=== PATIENT | male | born 2000 | race Caucasian/White ===

== ENCOUNTER 2021-02-24 16:41 | Inpatient (IN) | payer OTHER ==
[2021-02-24] MEDS ORDERED: Ondansetron PF 4 MG/2 ML Vial IVP PRN (21:39)
[2021-02-24] MEDS ORDERED: hydrALAZINE 20 MG/ML VIAL SLOW IVP PRN (21:39)
[2021-02-24] MEDS ORDERED: Promethazine HCl 12.5 MG SUPP PR PRN (21:39)
[2021-02-24] MEDS ORDERED: Labetalol HCl 100 MG/20 ML VIAL SLOW IVP PRN (21:39)
[2021-02-24] MEDS ORDERED: Promethazine HCl 25 MG/ML VIAL IM PRN (21:39)
[2021-02-24] MEDS ORDERED: Promethazine 25 MG TAB PO PRN (21:39)
[2021-02-24] MEDS ORDERED: Vancomycin 1 GM in Premix Bag 1 BAG IVPB SCH (21:45)
[2021-02-24 21:59] LABS: #Basophils 0.1 thou/uL (0.0-0.2); #Lymphocytes 1.7 thou/uL (1.20-3.40); #Monocytes 0.7 thou/uL (0.11-0.59); #Neutrophils 4.5 thou/uL (1.40-6.50); %Basophils 0.7 % (0.0-1.0); %Eosinophils 0.6 % (0.0-10.0); %Lymphocytes 24.7 % (21.0-51.0); %Monocytes 9.6 % (0.0-10.0); %Neutrophils 64.3 % (42.0-75.0); Hemoglobin 16.7 g/dL (14.0-18.0); Mean Corpuscular HGB CONC 33.5 g/dL (32.0-36.0); Mean Corpuscular Hemoglobin 31.9 pg (27.0-31.0); Mean Corpuscular Volume 95.2 fL (78.0-98.0); Mean Platelet Volume 8.3 fL (7.4-10.4); Platelet Count 250 thou/uL (130-400); RBC Distribution Width 12.3 % (11.5-14.5); Red Blood Cell (RBC) Count 5.23 mill/uL (4.70-6.10)
[2021-02-24] MEDS ORDERED: STERILE WATER IVPB SCH (22:00)
[2021-02-24] MEDS ORDERED: GENTAMICIN IVPB SCH (22:00)
[2021-02-24] MEDS ORDERED: VANCOMYCIN HCL IVPB SCH (22:00)
[2021-02-24 22:11] LABS: PTT 26.2 sec (22.9-36.1); Prothrombin Time 12.9 sec (12.0-14.7)
[2021-02-24 22:24] LABS: Anion Gap 14 mmol/L (10-20); BUN (Urea Nitrogen) 8 mg/dL (8.9-20.6); Calc. Creatinine Clearance 0 mL/min (70-130); Calcium 9.6 mg/dL (7.8-10.44); Carbon Dioxide 27 mmol/L (22-29); Chloride 101 mmol/L (98-107); Glucose 122 mg/dL (70-105); Potassium 3.9 mmol/L (3.5-5.1); Sodium 138 mmol/L (136-145)
[2021-02-24 23:23] LABS: SARS-CoV-2 NAA Rapid Test Not Detected (NotDetected)
[2021-02-25] MEDS: Sodium Chloride 0.9% 1,000 ML IV SCH ×3 (00:03→17:06)
[2021-02-25 00:25] VITALS: BMI 18.7
[2021-02-25] MEDS: Morphine 4 MG/ML VIAL SLOW IVP PRN ×3 (07:39→21:00)
[2021-02-25] MEDS ORDERED: diphenhydrAMINE 50 MG/ML VIAL IVP PRN (08:07)
[2021-02-25] MEDS ORDERED: Fentanyl 100 MCG/2 ML VIAL ONE (10:12)
[2021-02-25] MEDS ORDERED: Sodium Chloride 0.9% 10 ML ONE (10:16)
[2021-02-25] MEDS ORDERED: Lidocaine 0.5%/Epinephrine 1:200,000 50 ml Vial ONE (10:16)
[2021-02-25] MEDS ORDERED: Gentamicin 80 MG/2 ML VIAL ONE (10:16)
[2021-02-25] MEDS ORDERED: Thrombin 5000 UNITS/5 ML VIAL ONE (10:16)
[2021-02-25] MEDS ORDERED: Rocuronium Bromide 10 MG/ML (10ML VIAL) ONE (10:50)
[2021-02-25] MEDS ORDERED: Dexamethasone 20 MG/5 ML VIAL ONE (10:50)
[2021-02-25] MEDS ORDERED: PHENYLEPHRINE-NS 100 MCG/ML 10 ML SYRINGE ONE (10:50)
[2021-02-25] MEDS ORDERED: PROPOFOL 200 MG/20 ML VIAL ONE (10:50)
[2021-02-25] MEDS ORDERED: Ondansetron PF 4 MG/2 ML Vial ONE (10:50)
[2021-02-25] MEDS ORDERED: Lidocaine 1% PF 5 ML VIAL ONE (10:50)
[2021-02-25] MEDS ORDERED: ePHEDrine Sulfate 50 MG/10 ML VIAL ONE (10:50)
[2021-02-25] MEDS ORDERED: Bupivacaine PF 0.5% 30 ML VIAL ONE ×2 (11:30→12:05)
[2021-02-25] MEDS ORDERED: Lidocaine 1% w/Epinephrine 1:100K 20 ML VIAL ONE ×2 (11:30→12:05)
[2021-02-25] MEDS ORDERED: SUGAMMADEX SODIUM 200 MG/2 ML VIAL ONE (12:16)
[2021-02-25] MEDS ORDERED: Bacitracin Zinc Ointment 30 gm TUBE ONE (12:25)
[2021-02-25] MEDS: Vancomycin 1 GM in Premix Bag 1 BAG IVPB SCH (21:48)
[2021-02-26] MEDS ORDERED: Albuterol 200 PUFF (6.7GM INHALER) INH PRN (02:58)
[2021-02-26] MEDS ORDERED: Baclofen 10 MG TAB PER TUBE PRN (03:00)
[2021-02-26] MEDS: Sodium Chloride 0.9% 1,000 ML IV SCH (04:11)
[2021-02-26] MEDS: Vancomycin 1 GM in Premix Bag 1 BAG IVPB SCH (10:11)
[2021-02-26] MEDS: Morphine 4 MG/ML VIAL SLOW IVP PRN (11:47)
[2021-02-26 11:50] VITALS: BP 148/66; TEMP 98.4
[2021-02-26] MEDS ORDERED: OLOPATADINE EA EYE SCH (21:00)
[2021-02-26] MEDS ORDERED: Loratadine 10 MG TAB PER TUBE SCH (21:00)
[2021-02-26] MEDS ORDERED: Polyethylene Glycol 3350 17 GM Packet PER TUBE SCH (21:00)
[2021-02-26] MEDS ORDERED: Montelukast Sodium 10 mg Tablet PER TUBE SCH (21:00)
== END 2021-02-26 12:15 | disposition home or self-care (01) | DRG 31 ==
LOC: ERS 16:41 → CCU 21:42 → SURG B 02-25 21:31
PROVIDERS: ADMIT Neurological Surgery; ATTEND Neurological Surgery
PROC: 00W60JZ Revision of Synthetic Substitute in Cerebral Ventricle, Open Approach (ICD-10-PCS; principal; 2021-02-25)
PROC: 0WWG0JZ Revision of Synthetic Substitute in Peritoneal Cavity, Open Approach (ICD-10-PCS; 2021-02-25)
DX: T85.01XA Breakdown (mechanical) of ventricular intracranial (communicating) shunt, initial encounter (principal); G82.50 Quadriplegia, unspecified; Q67.5 Congenital deformity of spine; Z20.822 Contact with and (suspected) exposure to COVID-19; Y83.8 Other surgical procedures as the cause of abnormal reaction of the patient, or of later complication, without mention of misadventure at the time of the procedure; G47.33 Obstructive sleep apnea (adult) (pediatric); Q03.1 Atresia of foramina of Magendie and Luschka; Z98.890 Other specified postprocedural states; Z79.51 Long term (current) use of inhaled steroids; Z79.899 Other long term (current) drug therapy; Z88.1 Allergy status to other antibiotic agents; Z88.8 Allergy status to other drugs, medicaments and biological substances; Z91.040 Latex allergy status
CPT/HCPCS: 36415; 70450; 74176; 75809; 80048; 85025; 85610; 85730; J1100; J1580; J2001; J2270; J2405; J2704; J3010; J3370; J3490; S0020; U0002

== ENCOUNTER 2021-03-17 11:25 | Inpatient (IN) | payer OTHER ==
[2021-03-17] MEDS ORDERED: Iopamidol-370 76% 500 ML 1 ML ONE (11:36)
[2021-03-17] MEDS ORDERED: Vancomycin 1 GM/200 ML BAG ONE (12:07)
[2021-03-17] MEDS ORDERED: Cefepime 2 GM VIAL ONE ×2 (12:07→12:08)
[2021-03-17 12:09] LABS: Actual Bicarbonate (HCO3v) 27 mEq/L (22-28); Analyzer IN Cardio ER; Base Excess 2.7 mEq/L (-2.0 to +3.0); Calcium, Ionized (venous) 1.11 mmol/L (1.16-1.32); Chloride (VBG) 98 mmol/L (98-106); Hemoglobin (Hb) 16.8 g/dL (13.2-17.3); Potassium (VBG) 3.62 mmol/L (3.70-5.30); Sodium 135.9 mmol/L (133-146); pH (venous) 7.44 (7.32-7.43)
[2021-03-17 12:13] LABS: #Lymphocytes 1.2 thou/uL (1.20-3.40); #Monocytes 1.8 thou/uL (0.11-0.59); #Neutrophils 14.1 thou/uL (1.40-6.50); %Basophils 0.2 % (0.0-1.0); %Eosinophils 0.3 % (0.0-10.0); %Lymphocytes 7.2 % (21.0-51.0); %Monocytes 10.6 % (0.0-10.0); %Neutrophils 81.7 % (42.0-75.0); Mean Corpuscular HGB CONC 32.4 g/dL (32.0-36.0); Mean Corpuscular Hemoglobin 30.5 pg (27.0-31.0); Mean Corpuscular Volume 94.3 fL (78.0-98.0); Mean Platelet Volume 8.1 fL (7.4-10.4); Platelet Count 255 thou/uL (130-400); Red Blood Cell (RBC) Count 5.23 mill/uL (4.70-6.10); White Blood Cell (WBC) Count 17.2 thou/uL (4.8-10.8)
[2021-03-17 12:34] LABS: ALT (SGPT) 28 U/L (8-55); AST (SGOT) 18 U/L (5-34); Albumin 3.9 g/dL (3.5-5.0); Alkaline Phosphatase 138 U/L (40-110); Anion Gap 15 mmol/L (10-20); BUN (Urea Nitrogen) 8 mg/dL (8.9-20.6); Bilirubin, Total 0.6 mg/dL (0.2-1.2); Calc. Creatinine Clearance 0 mL/min (70-130); Calcium 10.1 mg/dL (7.8-10.44); Carbon Dioxide 28 mmol/L (22-29); Chloride 99 mmol/L (98-107); Globulin 3.4 g/dL (2.4-3.5); Glucose 93 mg/dL (70-105); Potassium 3.6 mmol/L (3.5-5.1); Protein, Total 7.3 g/dL (6.0-8.3); Sodium 138 mmol/L (136-145)
[2021-03-17 14:10] LABS: Bilirubin Negative (Negative); Blood, Urine Small (Negative); Glucose, Urine (Dipstick) 250 mg/dL (Negative); Ketone, Urine Negative (Negative); Leukocyte Negative (Negative); Nitrite Negative (Negative); Protein, Urine (Dipstick) Negative (Neg-Trace); Urobilinogen 0.2 mg/dL (Less than 2)
[2021-03-17 14:14] LABS: Clarity Clear (Clear)
[2021-03-17 14:16] LABS: Bacteria/HPF None Seen HPF (None Seen); Squamous Epithelial None Seen HPF (0-3); WBC/HPF None Seen HPF (0-3)
[2021-03-17] MEDS ORDERED: diphenhydrAMINE 50 MG/ML VIAL ONE (14:18)
[2021-03-17 14:47] LABS: SARS-CoV-2 NAA Rapid Test Not Detected (NotDetected)
[2021-03-17] MEDS ORDERED: Ondansetron PF 4 MG/2 ML Vial ONE (15:09)
[2021-03-17] MEDS: diphenhydrAMINE 50 MG/ML VIAL IVP PRN (20:33)
[2021-03-17] MEDS: Ondansetron PF 4 MG/2 ML Vial IVP PRN (20:46)
[2021-03-17] MEDS: Acetaminophen 650 MG Suppository PR PRN (20:55)
[2021-03-17] MEDS: Vancomycin HCl 750 MG in Sodium Chloride 0.9% 250 ML 250 ML IVPB SCH (20:56)
[2021-03-18] MEDS: Cefepime 1 GM in Sodium Chloride 0.9% 100 ML IVPB SCH ×2 (01:37→13:55)
[2021-03-18] MEDS: Vancomycin HCl 750 MG in Sodium Chloride 0.9% 250 ML 250 ML IVPB SCH (04:48)
[2021-03-18] MEDS: diphenhydrAMINE 50 MG/ML VIAL IVP PRN ×3 (04:50→20:22)
[2021-03-18 05:59] LABS: #Eosinphils 0.1 thou/uL (0.0-0.7); #Lymphocytes 1.8 thou/uL (1.20-3.40); #Monocytes 1.8 thou/uL (0.11-0.59); #Neutrophils 10.7 thou/uL (1.40-6.50); %Basophils 0.3 % (0.0-1.0); %Eosinophils 0.9 % (0.0-10.0); %Lymphocytes 12.3 % (21.0-51.0); %Monocytes 12.5 % (0.0-10.0); %Neutrophils 74.1 % (42.0-75.0); Hemoglobin 13.8 g/dL (14.0-18.0); Mean Corpuscular Hemoglobin 32.4 pg (27.0-31.0); Mean Corpuscular Volume 95.3 fL (78.0-98.0); Mean Platelet Volume 8.4 fL (7.4-10.4); Platelet Count 225 thou/uL (130-400); RBC Distribution Width 11.8 % (11.5-14.5); Red Blood Cell (RBC) Count 4.26 mill/uL (4.70-6.10); White Blood Cell (WBC) Count 14.4 thou/uL (4.8-10.8)
[2021-03-18 06:06] LABS: Anion Gap 12 mmol/L (10-20); BUN (Urea Nitrogen) 9 mg/dL (8.9-20.6); Calc. Creatinine Clearance 125 mL/min (70-130); Calcium 8.8 mg/dL (7.8-10.44); Carbon Dioxide 26 mmol/L (22-29); Chloride 102 mmol/L (98-107); Glucose 109 mg/dL (70-105); Potassium 3.5 mmol/L (3.5-5.1); Sodium 136 mmol/L (136-145)
[2021-03-18] MEDS: Enoxaparin Sodium 30 MG/0.3 ML SYRINGE SC SCH (09:55)
[2021-03-18] MEDS: Ondansetron PF 4 MG/2 ML Vial IVP PRN ×2 (10:31→18:25)
[2021-03-18 11:15] LABS: Vancomycin, Trough 13.1 ug/mL
[2021-03-18 11:51] LABS: Hemoglobin 15.4 g/dL (14.0-18.0); Mean Corpuscular HGB CONC 33.6 g/dL (32.0-36.0); Mean Corpuscular Hemoglobin 31.6 pg (27.0-31.0); Mean Corpuscular Volume 94.3 fL (78.0-98.0); Mean Platelet Volume 7.7 fL (7.4-10.4); Platelet Count 273 thou/uL (130-400); Red Blood Cell (RBC) Count 4.86 mill/uL (4.70-6.10); White Blood Cell (WBC) Count 14.8 thou/uL (4.8-10.8)
[2021-03-18 12:12] LABS: Band 6 % (5-11); Lymphocytes 9 % (21-51); MDiff Complete? YES; Monocytes 7 % (0-10); Neutrophil 76 % (42-75); Platelet Morphology Comment Appears Adequate; RBC Morphology Normal; Reactive Lymphocytes 2 % (0-10)
[2021-03-18] MEDS: Sodium Chloride 0.9% 1,000 ML IV SCH (12:14)
[2021-03-18] MEDS: Vancomycin 1 GM in Premix Bag 1 BAG IVPB SCH (12:14)
[2021-03-18] MEDS: Metoclopramide HCl 10 MG/2 ML VIAL IVP PRN ×2 (14:01→20:23)
[2021-03-18 15:56] LABS: Lactic Acid 1.1 mmol/L (0.5-2.2)
[2021-03-18 19:45] VITALS: BP 109/76
[2021-03-18] MEDS ORDERED: Lidocaine 0.5%/Epinephrine 1:200,000 50 ml Vial ONE (20:29)
[2021-03-18] MEDS ORDERED: Sodium Chloride 0.9% 10 ML ONE ×2 (20:30→23:53)
[2021-03-18] MEDS ORDERED: Bacitracin Zinc Ointment 30 gm TUBE ONE (20:30)
[2021-03-18] MEDS ORDERED: Fentanyl 100 MCG/2 ML VIAL ONE ×2 (20:33→23:14)
[2021-03-18] MEDS ORDERED: Midazolam HCl 2 mg/2 ml Vial ONE (20:33)
[2021-03-18] MEDS ORDERED: PHENYLEPHRINE-NS 100 MCG/ML 10 ML SYRINGE ONE (21:07)
[2021-03-18] MEDS ORDERED: Lidocaine 1% PF 5 ML VIAL ONE (21:07)
[2021-03-18] MEDS ORDERED: PROPOFOL 200 MG/20 ML VIAL ONE (21:07)
[2021-03-18] MEDS ORDERED: Ondansetron PF 4 MG/2 ML Vial ONE ×2 (21:07→22:47)
[2021-03-18] MEDS ORDERED: metroNIDAZOLE 500 MG in Premix Bag 1 BAG IVPB SCH (22:30)
[2021-03-18] MEDS ORDERED: Promethazine HCl 25 MG/ML VIAL SLOW IVP PRN (22:55)
[2021-03-18] MEDS ORDERED: Ondansetron HCl/PF 4 MG/2 ML Vial IVP PRN (22:55)
[2021-03-18] MEDS ORDERED: Promethazine HCl 25 MG/ML VIAL IM PRN (22:55)
[2021-03-19] MEDS: Sodium Chloride 0.9% 1,000 ML IV SCH (00:29)
[2021-03-19] MEDS: CEFAZOLIN 1 GM VIAL SLOW IVP SCH ×2 (00:40→06:19)
[2021-03-19] MEDS: Ondansetron PF 4 MG/2 ML Vial IVP PRN (00:42)
[2021-03-19 00:47] LABS: CSF Source CSF; Tube # 1
[2021-03-19 00:48] LABS: Clarity Clear (Clear)
[2021-03-19 00:51] LABS: Color Of CSF Supernatant COLORLESS (Colorless); Tube # 1; Unspun CSF Color COLORLESS (Colorless)
[2021-03-19] MEDS: Acetaminophen 650 MG Suppository PR PRN (00:54)
[2021-03-19] MEDS: Bisacodyl 10 MG SUPP PR SCH ×4 (00:56→22:37)
[2021-03-19 01:02] LABS: CSF, Glucose 112 mg/dl (40-70); CSF, Protein 31 mg/dL (15-40)
[2021-03-19] MEDS: Ketorolac Tromethamine 30 MG/ML VIAL IVP PRN ×3 (01:19→21:40)
[2021-03-19] MEDS: diphenhydrAMINE 50 MG/ML VIAL IVP PRN ×2 (02:20→18:35)
[2021-03-19] MEDS: Vancomycin 1 GM in Premix Bag 1 BAG IVPB SCH ×3 (02:23→18:36)
[2021-03-19] MEDS: Cefepime 1 GM in Sodium Chloride 0.9% 100 ML IVPB SCH (03:52)
[2021-03-19 04:33] LABS: Anion Gap 13 mmol/L (10-20); BUN (Urea Nitrogen) 14 mg/dL (8.9-20.6); Calc. Creatinine Clearance 109 mL/min (70-130); Calcium 9.4 mg/dL (7.8-10.44); Carbon Dioxide 26 mmol/L (22-29); Chloride 107 mmol/L (98-107); Glucose 173 mg/dL (70-105); Potassium 3.8 mmol/L (3.5-5.1); Sodium 142 mmol/L (136-145)
[2021-03-19] MEDS: metroNIDAZOLE 500 MG in Premix Bag 1 BAG IVPB SCH ×3 (07:13→22:38)
[2021-03-19 08:53] LABS: Hemoglobin 14.3 g/dL (14.0-18.0); Mean Corpuscular Hemoglobin 32.2 pg (27.0-31.0); Mean Corpuscular Volume 94.9 fL (78.0-98.0); Mean Platelet Volume 7.5 fL (7.4-10.4); Platelet Count 275 thou/uL (130-400); RBC Distribution Width 12.2 % (11.5-14.5); Red Blood Cell (RBC) Count 4.45 mill/uL (4.70-6.10); White Blood Cell (WBC) Count 16.1 thou/uL (4.8-10.8)
[2021-03-19 09:20] LABS: Band 2 % (5-11); Lymphocytes 13 % (21-51); MDiff Complete? YES; Monocytes 10 % (0-10); Neutrophil 71 % (42-75); RBC Morphology Normal; Reactive Lymphocytes 4 % (0-10)
[2021-03-19] MEDS: Enoxaparin Sodium 30 MG/0.3 ML SYRINGE SC SCH (10:27)
[2021-03-19] MEDS: Polyethylene Glycol 3350 17 GM Packet PO PRN (10:27)
[2021-03-19] MEDS: Metoclopramide HCl 10 MG/2 ML VIAL IVP PRN (10:27)
[2021-03-19] MEDS ORDERED: Fleet Enema 133 ML BOT PR PRN (10:50)
[2021-03-19] MEDS: Cefepime 2 GM in Sodium Chloride 0.9% 100 ML IVPB SCH ×2 (13:57→20:09)
[2021-03-19 17:31] LABS: Vancomycin, Trough 21.6 ug/mL
[2021-03-19] MEDS: Metoclopramide HCl 10 MG/2 ML VIAL IVP SCH (18:21)
[2021-03-20] MEDS: Metoclopramide HCl 10 MG/2 ML VIAL IVP SCH ×3 (01:48→14:05)
[2021-03-20] MEDS: Vancomycin 1 GM in Premix Bag 1 BAG IVPB SCH ×2 (01:48→08:53)
[2021-03-20] MEDS: diphenhydrAMINE 50 MG/ML VIAL IVP PRN ×2 (01:50→08:51)
[2021-03-20 03:36] LABS: #Basophils 0.1 thou/uL (0.0-0.2); #Eosinphils 0.6 thou/uL (0.0-0.7); #Lymphocytes 2.4 thou/uL (1.20-3.40); #Neutrophils 4.6 thou/uL (1.40-6.50); %Basophils 0.7 % (0.0-1.0); %Eosinophils 7.2 % (0.0-10.0); %Lymphocytes 27.6 % (21.0-51.0); %Monocytes 11.6 % (0.0-10.0); %Neutrophils 52.9 % (42.0-75.0); Hemoglobin 12.4 g/dL (14.0-18.0); Mean Corpuscular HGB CONC 33.5 g/dL (32.0-36.0); Mean Corpuscular Hemoglobin 32.2 pg (27.0-31.0); Mean Corpuscular Volume 96.2 fL (78.0-98.0); Mean Platelet Volume 7.1 fL (7.4-10.4); Platelet Count 253 thou/uL (130-400); RBC Distribution Width 12.2 % (11.5-14.5); Red Blood Cell (RBC) Count 3.85 mill/uL (4.70-6.10); White Blood Cell (WBC) Count 8.7 thou/uL (4.8-10.8)
[2021-03-20 03:55] LABS: Anion Gap 10 mmol/L (10-20); BUN (Urea Nitrogen) 18 mg/dL (8.9-20.6); Calc. Creatinine Clearance 132 mL/min (70-130); Calcium 8.5 mg/dL (7.8-10.44); Carbon Dioxide 27 mmol/L (22-29); Chloride 111 mmol/L (98-107); Glucose 142 mg/dL (70-105); Potassium 3.2 mmol/L (3.5-5.1); Sodium 145 mmol/L (136-145)
[2021-03-20] MEDS: Cefepime 2 GM in Sodium Chloride 0.9% 100 ML IVPB SCH (04:06)
[2021-03-20] MEDS: Sodium Chloride 0.9% 1,000 ML IV SCH (04:08)
[2021-03-20] MEDS: metroNIDAZOLE 500 MG in Premix Bag 1 BAG IVPB SCH ×3 (05:47→21:45)
[2021-03-20] MEDS: Bisacodyl 10 MG SUPP PR SCH ×3 (07:21→22:15)
[2021-03-20] MEDS: Polyethylene Glycol 3350 17 GM Packet PO PRN (08:53)
[2021-03-20] MEDS: Enoxaparin Sodium 30 MG/0.3 ML SYRINGE SC SCH (08:53)
[2021-03-20] MEDS ORDERED: Potassium Bicarbonate/Cit Ac 20 MEQ TAB PO SCH (09:45)
[2021-03-20 10:06] LABS: Vancomycin, Trough 36.6 ug/mL
[2021-03-20] MEDS: Linezolid 600 MG in Premix Bag 1 BAG IVPB SCH (15:34)
[2021-03-20] MEDS: Ketorolac Tromethamine 30 MG/ML VIAL IVP PRN (16:59)
[2021-03-20] MEDS: Cefepime 1 GM in Sodium Chloride 0.9% 100 ML IVPB SCH (17:58)
[2021-03-20] MEDS: Ondansetron PF 4 MG/2 ML Vial IVP PRN (21:45)
[2021-03-21] MEDS: Ketorolac Tromethamine 30 MG/ML VIAL IVP PRN ×2 (00:09→16:01)
[2021-03-21] MEDS: Linezolid 600 MG in Premix Bag 1 BAG IVPB SCH ×2 (01:53→14:20)
[2021-03-21 03:54] LABS: #Basophils 0.1 thou/uL (0.0-0.2); #Eosinphils 0.8 thou/uL (0.0-0.7); #Lymphocytes 2.3 thou/uL (1.20-3.40); #Monocytes 0.9 thou/uL (0.11-0.59); #Neutrophils 3.7 thou/uL (1.40-6.50); %Basophils 0.7 % (0.0-1.0); %Eosinophils 10.9 % (0.0-10.0); %Lymphocytes 29.3 % (21.0-51.0); %Monocytes 11.9 % (0.0-10.0); %Neutrophils 47.2 % (42.0-75.0); Hemoglobin 13.4 g/dL (14.0-18.0); Mean Corpuscular HGB CONC 33.2 g/dL (32.0-36.0); Mean Corpuscular Hemoglobin 31.3 pg (27.0-31.0); Mean Corpuscular Volume 94.3 fL (78.0-98.0); Mean Platelet Volume 7.1 fL (7.4-10.4); Platelet Count 278 thou/uL (130-400); RBC Distribution Width 12.1 % (11.5-14.5); Red Blood Cell (RBC) Count 4.28 mill/uL (4.70-6.10); White Blood Cell (WBC) Count 7.8 thou/uL (4.8-10.8)
[2021-03-21 04:10] LABS: Anion Gap 14 mmol/L (10-20); BUN (Urea Nitrogen) 11 mg/dL (8.9-20.6); Calc. Creatinine Clearance 135 mL/min (70-130); Calcium 8.5 mg/dL (7.8-10.44); Carbon Dioxide 27 mmol/L (22-29); Chloride 99 mmol/L (98-107); Glucose 130 mg/dL (70-105); Potassium 3.5 mmol/L (3.5-5.1); Sodium 136 mmol/L (136-145)
[2021-03-21] MEDS: Cefepime 1 GM in Sodium Chloride 0.9% 100 ML IVPB SCH ×2 (04:37→16:00)
[2021-03-21] MEDS: metroNIDAZOLE 500 MG in Premix Bag 1 BAG IVPB SCH ×3 (05:51→21:33)
[2021-03-21] MEDS: Bisacodyl 10 MG SUPP PR SCH ×3 (05:51→23:21)
[2021-03-21] MEDS: Ondansetron PF 4 MG/2 ML Vial IVP PRN ×2 (07:45→14:34)
[2021-03-21] MEDS: Enoxaparin Sodium 30 MG/0.3 ML SYRINGE SC SCH (09:40)
[2021-03-22] MEDS: Linezolid 600 MG in Premix Bag 1 BAG IVPB SCH ×2 (02:48→14:04)
[2021-03-22 04:35] LABS: #Eosinphils 0.4 thou/uL (0.0-0.7); #Lymphocytes 1.5 thou/uL (1.20-3.40); #Monocytes 0.9 thou/uL (0.11-0.59); %Basophils 0.1 % (0.0-1.0); %Eosinophils 4.9 % (0.0-10.0); %Neutrophils 64.1 % (42.0-75.0); Hemoglobin 14.3 g/dL (14.0-18.0); Mean Corpuscular HGB CONC 34.5 g/dL (32.0-36.0); Mean Corpuscular Hemoglobin 32.8 pg (27.0-31.0); Mean Corpuscular Volume 94.9 fL (78.0-98.0); Mean Platelet Volume 7.3 fL (7.4-10.4); Platelet Count 318 thou/uL (130-400); Red Blood Cell (RBC) Count 4.36 mill/uL (4.70-6.10); White Blood Cell (WBC) Count 7.7 thou/uL (4.8-10.8)
[2021-03-22 04:59] LABS: Anion Gap 13 mmol/L (10-20); BUN (Urea Nitrogen) 11 mg/dL (8.9-20.6); Calc. Creatinine Clearance 136 mL/min (70-130); Calcium 8.9 mg/dL (7.8-10.44); Carbon Dioxide 30 mmol/L (22-29); Chloride 98 mmol/L (98-107); Glucose 123 mg/dL (70-105); Potassium 3.3 mmol/L (3.5-5.1); Sodium 138 mmol/L (136-145)
[2021-03-22] MEDS: metroNIDAZOLE 500 MG in Premix Bag 1 BAG IVPB SCH ×3 (05:39→22:11)
[2021-03-22] MEDS: Bisacodyl 10 MG SUPP PR SCH ×3 (05:54→21:46)
[2021-03-22] MEDS: Enoxaparin Sodium 30 MG/0.3 ML SYRINGE SC SCH (08:58)
[2021-03-22] MEDS ORDERED: Metoclopramide HCl 10 MG/2 ML VIAL IVP SCH (11:45)
[2021-03-22] MEDS: Acetaminophen 650 MG Suppository PR PRN ×2 (14:24→21:46)
[2021-03-22] MEDS ORDERED: Electrolyte Replacement Protocol 1 EACH FS ONE (16:31)
[2021-03-22] MEDS ORDERED: Electrolyte Replacement Protocol FS PRN (16:45)
[2021-03-22] MEDS: Potassium Chloride 20 MEQ in Premix Bag 1 BAG IVPB SCH ×2 (18:47→22:06)
[2021-03-22] MEDS: Metoclopramide HCl 10 MG/2 ML VIAL IVP SCH (21:47)
[2021-03-23] MEDS: Linezolid 600 MG in Premix Bag 1 BAG IVPB SCH ×2 (02:10→14:26)
[2021-03-23] MEDS: metroNIDAZOLE 500 MG in Premix Bag 1 BAG IVPB SCH ×3 (05:24→22:24)
[2021-03-23] MEDS: Bisacodyl 10 MG SUPP PR SCH ×3 (05:24→20:32)
[2021-03-23] MEDS: Acetaminophen 650 MG Suppository PR PRN ×3 (05:24→20:33)
[2021-03-23] MEDS ORDERED: Potassium Chloride 20 MEQ in Premix Bag 1 BAG IVPB SCH (07:00)
[2021-03-23 07:22] LABS: Anion Gap 13 mmol/L (10-20); BUN (Urea Nitrogen) 10 mg/dL (8.9-20.6); Calc. Creatinine Clearance 157 mL/min (70-130); Calcium 8.5 mg/dL (7.8-10.44); Carbon Dioxide 27 mmol/L (22-29); Chloride 100 mmol/L (98-107); Glucose 109 mg/dL (70-105); Potassium 3.7 mmol/L (3.5-5.1); Sodium 136 mmol/L (136-145)
[2021-03-23] MEDS: Ondansetron PF 4 MG/2 ML Vial IVP PRN ×3 (08:21→23:05)
[2021-03-23] MEDS: Metoclopramide HCl 10 MG/2 ML VIAL IVP SCH ×3 (09:45→20:32)
[2021-03-23] MEDS: Enoxaparin Sodium 30 MG/0.3 ML SYRINGE SC SCH (10:51)
[2021-03-23 14:27] VITALS: BMI 21.9
[2021-03-24] MEDS: Linezolid 600 MG in Premix Bag 1 BAG IVPB SCH ×2 (01:37→14:06)
[2021-03-24] MEDS: metroNIDAZOLE 500 MG in Premix Bag 1 BAG IVPB SCH ×3 (05:52→22:09)
[2021-03-24] MEDS: Bisacodyl 10 MG SUPP PR SCH ×3 (05:53→20:30)
[2021-03-24] MEDS: Acetaminophen 650 MG Suppository PR PRN (05:53)
[2021-03-24] MEDS: Metoclopramide HCl 10 MG/2 ML VIAL IVP SCH ×2 (09:24→20:28)
[2021-03-24] MEDS: Enoxaparin Sodium 30 MG/0.3 ML SYRINGE SC SCH (09:24)
[2021-03-24] MEDS: Acetaminophen 650 MG/20.3 ML UDCUP PO PRN (20:43)
[2021-03-24] MEDS: diphenhydrAMINE 50 MG/ML VIAL IVP PRN (22:24)
[2021-03-25] MEDS: Linezolid 600 MG in Premix Bag 1 BAG IVPB SCH ×2 (03:34→14:03)
[2021-03-25 04:29] LABS: #Basophils 0.1 thou/uL (0.0-0.2); #Eosinphils 0.8 thou/uL (0.0-0.7); #Lymphocytes 2.3 thou/uL (1.20-3.40); #Monocytes 0.9 thou/uL (0.11-0.59); #Neutrophils 4.5 thou/uL (1.40-6.50); %Eosinophils 9.8 % (0.0-10.0); %Lymphocytes 26.9 % (21.0-51.0); %Monocytes 10.6 % (0.0-10.0); %Neutrophils 51.7 % (42.0-75.0); Mean Corpuscular HGB CONC 33.9 g/dL (32.0-36.0); Mean Corpuscular Hemoglobin 32.4 pg (27.0-31.0); Mean Corpuscular Volume 95.6 fL (78.0-98.0); Platelet Count 330 thou/uL (130-400); RBC Distribution Width 12.6 % (11.5-14.5); Red Blood Cell (RBC) Count 4.33 mill/uL (4.70-6.10); White Blood Cell (WBC) Count 8.6 thou/uL (4.8-10.8)
[2021-03-25 04:54] LABS: ALT (SGPT) 208 U/L (8-55); AST (SGOT) 157 U/L (5-34); Albumin 3.2 g/dL (3.5-5.0); Alkaline Phosphatase 95 U/L (40-110); Anion Gap 11 mmol/L (10-20); BUN (Urea Nitrogen) 10 mg/dL (8.9-20.6); Bilirubin, Total 0.2 mg/dL (0.2-1.2); Calc. Creatinine Clearance 152 mL/min (70-130); Calcium 8.7 mg/dL (7.8-10.44); Carbon Dioxide 25 mmol/L (22-29); Chloride 103 mmol/L (98-107); Globulin 2.3 g/dL (2.4-3.5); Glucose 124 mg/dL (70-105); Magnesium 1.8 mg/dL (1.6-2.6); Phosphorus 2.9 mg/dL (2.3-4.7); Potassium 4.2 mmol/L (3.5-5.1); Protein, Total 5.5 g/dL (6.0-8.3); Sodium 135 mmol/L (136-145)
[2021-03-25] MEDS: metroNIDAZOLE 500 MG in Premix Bag 1 BAG IVPB SCH ×3 (05:58→22:11)
[2021-03-25] MEDS: Bisacodyl 10 MG SUPP PR SCH ×3 (05:58→22:11)
[2021-03-25] MEDS ORDERED: Magnesium 2 GM/50 ML 2 GM in Premix Bag 1 BAG IVPB SCH (06:30)
[2021-03-25] MEDS: Enoxaparin Sodium 30 MG/0.3 ML SYRINGE SC SCH (08:58)
[2021-03-25] MEDS: Metoclopramide HCl 10 MG/2 ML VIAL IVP SCH (08:59)
[2021-03-25] MEDS: Acetaminophen 650 MG/20.3 ML UDCUP PO PRN (22:20)
[2021-03-26] MEDS: Linezolid 600 MG in Premix Bag 1 BAG IVPB SCH ×2 (03:11→13:31)
[2021-03-26] MEDS: metroNIDAZOLE 500 MG in Premix Bag 1 BAG IVPB SCH ×3 (06:21→21:04)
[2021-03-26] MEDS: Bisacodyl 10 MG SUPP PR SCH ×3 (06:22→21:27)
[2021-03-26] MEDS: Acetaminophen 650 MG/20.3 ML UDCUP PO PRN ×2 (12:26→21:03)
[2021-03-26] MEDS: diphenhydrAMINE 50 MG/ML VIAL IVP PRN (21:03)
[2021-03-27] MEDS: Linezolid 600 MG in Premix Bag 1 BAG IVPB SCH ×2 (02:01→14:14)
[2021-03-27] MEDS ORDERED: Vancomycin HCl 20 MG, Gentamicin (PEDI) 8 MG, Admixture Fee 1 EACH in Sodium Chloride 0... FS SCH (04:00)
[2021-03-27 04:10] LABS: #Basophils 0.1 thou/uL (0.0-0.2); #Eosinphils 0.7 thou/uL (0.0-0.7); #Lymphocytes 3.2 thou/uL (1.20-3.40); #Monocytes 0.9 thou/uL (0.11-0.59); #Neutrophils 3.5 thou/uL (1.40-6.50); %Basophils 1.5 % (0.0-1.0); %Eosinophils 8.6 % (0.0-10.0); %Lymphocytes 38.1 % (21.0-51.0); %Monocytes 10.3 % (0.0-10.0); %Neutrophils 41.6 % (42.0-75.0); Hemoglobin 14.8 g/dL (14.0-18.0); Mean Corpuscular HGB CONC 34.5 g/dL (32.0-36.0); Mean Corpuscular Hemoglobin 32.9 pg (27.0-31.0); Mean Corpuscular Volume 95.5 fL (78.0-98.0); Mean Platelet Volume 7.3 fL (7.4-10.4); Platelet Count 333 thou/uL (130-400); RBC Distribution Width 13.1 % (11.5-14.5); White Blood Cell (WBC) Count 8.4 thou/uL (4.8-10.8)
[2021-03-27 04:38] LABS: Anion Gap 14 mmol/L (10-20); BUN (Urea Nitrogen) 13 mg/dL (8.9-20.6); Calc. Creatinine Clearance 137 mL/min (70-130); Calcium 9.2 mg/dL (7.8-10.44); Carbon Dioxide 26 mmol/L (22-29); Chloride 102 mmol/L (98-107); Glucose 98 mg/dL (70-105); Potassium 4.8 mmol/L (3.5-5.1); Sodium 137 mmol/L (136-145)
[2021-03-27] MEDS: metroNIDAZOLE 500 MG in Premix Bag 1 BAG IVPB SCH ×3 (05:25→22:02)
[2021-03-27] MEDS: Bisacodyl 10 MG SUPP PR SCH ×3 (05:52→20:20)
[2021-03-27] MEDS ORDERED: Fentanyl 100 MCG/2 ML VIAL ONE (06:23)
[2021-03-27] MEDS ORDERED: Bupivacaine 0.25% HCL 30 ML VIAL ONE (06:44)
[2021-03-27] MEDS ORDERED: Lidocaine 0.5%/Epinephrine 1:200,000 50 ml Vial ONE (06:44)
[2021-03-27] MEDS ORDERED: Thrombin 5000 UNITS/5 ML VIAL ONE (06:44)
[2021-03-27] MEDS ORDERED: EPINEPHrine 1 MG/ML AMP ONE (06:44)
[2021-03-27] MEDS ORDERED: Bacitracin Zinc Ointment 30 gm TUBE ONE (06:44)
[2021-03-27] MEDS ORDERED: Midazolam HCl 2 mg/2 ml Vial ONE (07:00)
[2021-03-27] MEDS ORDERED: PROPOFOL 200 MG/20 ML VIAL ONE (07:32)
[2021-03-27] MEDS ORDERED: Lidocaine 1% PF 5 ML VIAL ONE (07:32)
[2021-03-27] MEDS ORDERED: Dexamethasone 20 MG/5 ML VIAL ONE (07:32)
[2021-03-27] MEDS ORDERED: Rocuronium Bromide 10 MG/ML (10ML VIAL) ONE (07:32)
[2021-03-27] MEDS ORDERED: Ondansetron PF 4 MG/2 ML Vial ONE (07:32)
[2021-03-27] MEDS ORDERED: Vancomycin 1 GM/200 ML BAG ONE (07:38)
[2021-03-27] MEDS ORDERED: SUGAMMADEX SODIUM 200 MG/2 ML VIAL ONE (08:54)
[2021-03-27] MEDS: Metoclopramide HCl 10 MG/2 ML VIAL IVP PRN ×2 (13:11→19:58)
[2021-03-27] MEDS: Acetaminophen 650 MG/20.3 ML UDCUP PO PRN ×2 (13:12→18:22)
[2021-03-27] MEDS: diphenhydrAMINE 50 MG/ML VIAL IVP PRN (13:12)
[2021-03-27] MEDS: Morphine 4 MG/ML VIAL SLOW IVP PRN ×2 (19:59→23:01)
[2021-03-27] MEDS ORDERED: Polyethylene Glycol 3350 17 GM Packet PER TUBE SCH (21:00)
[2021-03-27] MEDS ORDERED: Saccharomyces boulardii 250 MG CAP PER TUBE SCH (21:00)
[2021-03-27] MEDS ORDERED: Montelukast Sodium 10 mg Tablet PER TUBE SCH (21:00)
[2021-03-27] MEDS ORDERED: OLOPATADINE HCL FS SCH (21:00)
[2021-03-27] MEDS: Baclofen 10 MG TAB PER TUBE PRN (22:02)
[2021-03-28] MEDS: Linezolid 600 MG in Premix Bag 1 BAG IVPB SCH ×2 (02:12→13:15)
[2021-03-28] MEDS: Morphine 4 MG/ML VIAL SLOW IVP PRN ×3 (03:03→18:05)
[2021-03-28 03:54] LABS: #Eosinphils 0.1 thou/uL (0.0-0.7); #Lymphocytes 2.7 thou/uL (1.20-3.40); #Monocytes 1.4 thou/uL (0.11-0.59); #Neutrophils 12.3 thou/uL (1.40-6.50); %Basophils 0.2 % (0.0-1.0); %Eosinophils 0.4 % (0.0-10.0); %Lymphocytes 16.4 % (21.0-51.0); %Monocytes 8.5 % (0.0-10.0); %Neutrophils 74.5 % (42.0-75.0); Hemoglobin 13.6 g/dL (14.0-18.0); Mean Corpuscular HGB CONC 34.2 g/dL (32.0-36.0); Mean Corpuscular Hemoglobin 32.4 pg (27.0-31.0); Mean Corpuscular Volume 94.8 fL (78.0-98.0); Mean Platelet Volume 6.8 fL (7.4-10.4); Platelet Count 374 thou/uL (130-400); RBC Distribution Width 13.2 % (11.5-14.5); Red Blood Cell (RBC) Count 4.18 mill/uL (4.70-6.10); White Blood Cell (WBC) Count 16.4 thou/uL (4.8-10.8)
[2021-03-28] MEDS: Acetaminophen 650 MG/20.3 ML UDCUP PO PRN ×2 (04:10→11:14)
[2021-03-28 04:19] LABS: ALT (SGPT) 158 U/L (8-55); AST (SGOT) 40 U/L (5-34); Albumin 3.2 g/dL (3.5-5.0); Alkaline Phosphatase 102 U/L (40-110); Anion Gap 12 mmol/L (10-20); BUN (Urea Nitrogen) 11 mg/dL (8.9-20.6); Bilirubin, Total 0.3 mg/dL (0.2-1.2); Calc. Creatinine Clearance 145 mL/min (70-130); Calcium 8.5 mg/dL (7.8-10.44); Carbon Dioxide 25 mmol/L (22-29); Chloride 100 mmol/L (98-107); Globulin 2.4 g/dL (2.4-3.5); Glucose 147 mg/dL (70-105); Potassium 4.1 mmol/L (3.5-5.1); Protein, Total 5.6 g/dL (6.0-8.3); Sodium 133 mmol/L (136-145)
[2021-03-28] MEDS: metroNIDAZOLE 500 MG in Premix Bag 1 BAG IVPB SCH ×2 (06:02→13:14)
[2021-03-28] MEDS: Bisacodyl 10 MG SUPP PR SCH ×2 (06:03→16:23)
[2021-03-28] MEDS: Baclofen 10 MG TAB PER TUBE PRN ×2 (06:04→14:00)
[2021-03-28] MEDS: Metoclopramide HCl 10 MG/2 ML VIAL IVP PRN ×2 (07:36→13:12)
[2021-03-28 18:03] VITALS: TEMP 99.2
== END 2021-03-28 18:40 | disposition home or self-care (01) | DRG 25 ==
LOC: ERS 11:25 → SURG A 14:59 → CCU 03-18 21:25
PROVIDERS: ADMIT Internal Medicine; ATTEND Internal Medicine
PROC: 8E0ZXY6 Isolation (ICD-10-PCS; 2021-03-17)
PROC: 009600Z Drainage of Cerebral Ventricle with Drainage Device, Open Approach (ICD-10-PCS; principal; 2021-03-18)
PROC: 00P60JZ Removal of Synthetic Substitute from Cerebral Ventricle, Open Approach (ICD-10-PCS; 2021-03-18)
PROC: 00160J6 Bypass Cerebral Ventricle to Peritoneal Cavity with Synthetic Substitute, Open Approach (ICD-10-PCS; 2021-03-27)
PROC: 0WJG4ZZ Inspection of Peritoneal Cavity, Percutaneous Endoscopic Approach (ICD-10-PCS; 2021-03-27)
PROC: 00P Central Nervous System and Cranial Nerves, Removal (ICD-10-PCS; 2021-03-27)
DX: T85.730A Infection and inflammatory reaction due to ventricular intracranial (communicating) shunt, initial encounter (principal); A41.81 Sepsis due to Enterococcus; R65.20 Severe sepsis without septic shock; R53.2 Functional quadriplegia; Z20.822 Contact with and (suspected) exposure to COVID-19; Z23 Encounter for immunization; E87.1 Hypo-osmolality and hyponatremia; K56.7 Ileus, unspecified; Z16.21 Resistance to vancomycin; Y83.2 Surgical operation with anastomosis, bypass or graft as the cause of abnormal reaction of the patient, or of later complication, without mention of misadventure at the time of the procedure; Q03.1 Atresia of foramina of Magendie and Luschka; R94.5 Abnormal results of liver function studies; R19.7 Diarrhea, unspecified; B96.5 Pseudomonas (aeruginosa) (mallei) (pseudomallei) as the cause of diseases classified elsewhere; D53.9 Nutritional anemia, unspecified; R13.12 Dysphagia, oropharyngeal phase; E87.6 Hypokalemia; K59.00 Constipation, unspecified; Z78.1 Physical restraint status; Z88.8 Allergy status to other drugs, medicaments and biological substances; Z88.1 Allergy status to other antibiotic agents; Z91.040 Latex allergy status; Z79.899 Other long term (current) drug therapy; Z93.1 Gastrostomy status
CPT/HCPCS: 0240U; 36415; 51701; 70450; 71045; 72125; 74018; 74177; 74250; 75809; 80048; 80053; 80202; 81003; 81015; 82805; 82945; 83605; 83735; 84100; 84157; 85025; 85060; 85652; 86140; 87040; 87045; 87046; 87070; 87077; 87086; 87186; 87205; 87324; 87427; 87449; 89051; 90471; 90732; 93005; 96365; 96366; 96367; 96375; G0009; J0171; J0690; J0692; J1100; J1200; J1650; J1885; J2001; J2020; J2250; J2270; J2405; J2704; J2765; J3010; J3370; J3475; J3480; J3490; J7050; Q9967; S0020

== ENCOUNTER 2021-05-07 15:11 | Inpatient (IN) | payer OTHER ==
[~2021-05-07 15:11] MED LIST: Heparin 1,000 UNITS/ML VIAL ONE; Iopamidol-370 76% 500 ML 1 ML ONE
[2021-05-07 16:13] LABS: #Lymphocytes 1.1 thou/uL (1.20-3.40); #Monocytes 1.4 thou/uL (0.11-0.59); #Neutrophils 15.2 thou/uL (1.40-6.50); %Basophils 0.1 % (0.0-1.0); %Eosinophils 0.1 % (0.0-10.0); %Lymphocytes 6.2 % (21.0-51.0); %Monocytes 7.9 % (0.0-10.0); %Neutrophils 85.7 % (42.0-75.0); Mean Corpuscular HGB CONC 33.1 g/dL (32.0-36.0); Mean Corpuscular Hemoglobin 31.1 pg (27.0-31.0); Mean Corpuscular Volume 94.1 fL (78.0-98.0); Mean Platelet Volume 8.2 fL (7.4-10.4); Platelet Count 244 thou/uL (130-400); RBC Distribution Width 13.6 % (11.5-14.5); Red Blood Cell (RBC) Count 5.14 mill/uL (4.70-6.10); White Blood Cell (WBC) Count 17.8 thou/uL (4.8-10.8)
[2021-05-07 16:28] LABS: ALT (SGPT) 22 U/L (8-55); AST (SGOT) 16 U/L (5-34); Albumin 3.9 g/dL (3.5-5.0); Alkaline Phosphatase 113 U/L (40-110); Anion Gap 21 mmol/L (10-20); BUN (Urea Nitrogen) 9 mg/dL (8.9-20.6); Bilirubin, Total 1.1 mg/dL (0.2-1.2); Calc. Creatinine Clearance 0 mL/min (70-130); Calcium 9.6 mg/dL (7.8-10.44); Carbon Dioxide 22 mmol/L (22-29); Chloride 89 mmol/L (98-107); Globulin 3.4 g/dL (2.4-3.5); Glucose 125 mg/dL (70-105); Potassium 3.7 mmol/L (3.5-5.1); Protein, Total 7.3 g/dL (6.0-8.3); Sodium 128 mmol/L (136-145)
[2021-05-07] MEDS ORDERED: Acetaminophen 325 MG/10.15 ML UDCUP ONE (17:03)
[2021-05-07] MEDS ORDERED: Ketorolac Tromethamine 30 MG/ML VIAL ONE (17:03)
[2021-05-07] MEDS ORDERED: Piperacillin/Tazobactam 4.5 GM VIAL ONE (18:03)
[2021-05-07] MEDS ORDERED: Linezolid 600 MG in Premix Bag 1 BAG IVPB SCH (18:15)
[2021-05-07 19:54] LABS: Lactic Acid 6.7 mmol/L (0.5-2.2)
[2021-05-07] MEDS ORDERED: Ondansetron PF 4 MG/2 ML Vial IVP PRN (20:30)
[2021-05-07] MEDS ORDERED: Acetaminophen 325 MG TAB PO PRN (20:30)
[2021-05-07] MEDS ORDERED: Ondansetron ODT 4 MG TAB SL PRN (20:30)
[2021-05-07] MEDS ORDERED: Ondansetron ODT 4 MG TAB PO PRN (20:40)
[2021-05-07] MEDS ORDERED: Albuterol 200 PUFF (6.7GM INHALER) INH PRN (20:40)
[2021-05-07] MEDS ORDERED: Communication Order-Pharmacy FS SCH (20:40)
[2021-05-07] MEDS: Polyethylene Glycol 3350 17 GM Packet PER TUBE SCH (21:45)
[2021-05-07] MEDS: Sodium Chloride 0.9% 1,000 ML IV SCH ×2 (21:45)
[2021-05-07] MEDS: Loratadine 10 MG TAB PER TUBE SCH (21:45)
[2021-05-07] MEDS: Senokot S 8.6-50 MG TAB PER TUBE SCH (21:45)
[2021-05-07] MEDS: Montelukast Sodium 10 mg Tablet PER TUBE SCH (21:45)
[2021-05-07] MEDS: Pantoprazole 40 MG VIAL IVP SCH (21:50)
[2021-05-07] MEDS: Bisacodyl 10 MG SUPP PR SCH (22:37)
[2021-05-07] MEDS: Ketorolac Tromethamine 30 MG/ML VIAL IVP SCH (23:44)
[2021-05-08] MEDS ORDERED: Piperacillin/Tazobactam 4.5 GM in Sodium Chloride 0.9% 100 ML IVPB SCH (02:00)
[2021-05-08] MEDS: Ketorolac Tromethamine 30 MG/ML VIAL IVP SCH ×4 (05:43→23:56)
[2021-05-08] MEDS: Bisacodyl 10 MG SUPP PR SCH ×3 (05:46→20:35)
[2021-05-08] MEDS: Sodium Chloride 0.9% 1,000 ML IV SCH ×4 (05:47→21:46)
[2021-05-08 06:05] LABS: ALT (SGPT) 17 U/L (8-55); AST (SGOT) 22 U/L (5-34); Albumin 3.2 g/dL (3.5-5.0); Alkaline Phosphatase 95 U/L (40-110); Anion Gap 20 mmol/L (10-20); BUN (Urea Nitrogen) 8 mg/dL (8.9-20.6); Bilirubin, Total 1.5 mg/dL (0.2-1.2); Calc. Creatinine Clearance 128 mL/min (70-130); Calcium 8.9 mg/dL (7.8-10.44); Carbon Dioxide 18 mmol/L (22-29); Chloride 100 mmol/L (98-107); Glucose 128 mg/dL (70-105); Potassium 4.7 mmol/L (3.5-5.1); Protein, Total 6.2 g/dL (6.0-8.3); Sodium 133 mmol/L (136-145)
[2021-05-08 06:24] LABS: Hemoglobin 13.7 g/dL (14.0-18.0); Mean Corpuscular HGB CONC 33.1 g/dL (32.0-36.0); Mean Corpuscular Hemoglobin 31.3 pg (27.0-31.0); Mean Corpuscular Volume 94.6 fL (78.0-98.0); Mean Platelet Volume 8.3 fL (7.4-10.4); Platelet Count 222 thou/uL (130-400); RBC Distribution Width 13.4 % (11.5-14.5); Red Blood Cell (RBC) Count 4.37 mill/uL (4.70-6.10); White Blood Cell (WBC) Count 12.4 thou/uL (4.8-10.8)
[2021-05-08 06:42] LABS: Band 33 % (5-11); Eosinophils 1 % (0-10); Lymphocytes 15 % (21-51); MDiff Complete? YES; Monocytes 7 % (0-10); Neutrophil 44 % (42-75)
[2021-05-08] MEDS: Pantoprazole 40 MG VIAL IVP SCH ×2 (08:49→20:35)
[2021-05-08] MEDS: Linezolid 600 MG in Premix Bag 1 BAG IVPB SCH ×2 (08:49→20:34)
[2021-05-08] MEDS: Polyethylene Glycol 3350 17 GM Packet PER TUBE SCH ×2 (08:49→20:34)
[2021-05-08] MEDS: Senokot S 8.6-50 MG TAB PER TUBE SCH ×2 (08:50→20:35)
[2021-05-08 11:07] LABS: Bilirubin Negative (Negative); Blood, Urine Negative (Negative); Clarity Clear (Clear); Glucose, Urine (Dipstick) Normal (Negative); Ketone, Urine Negative (Negative); Leukocyte 75 Leu/uL (Negative); Nitrite Negative (Negative); Protein, Urine (Dipstick) 30 mg/dL (Neg-Trace); RBC/HPF 0-3 HPF (0-3); Specific Gravity, Urine 1.013 (1.002-1.036); Squamous Epithelial 0-3 HPF (0-3); Urobilinogen Normal mg/dL (Less than 2); pH, Urine 6.5 (5.0-9.0)
[2021-05-08 11:10] LABS: Bacteria/HPF 1+ HPF (None Seen)
[2021-05-08 11:33] LABS: CSF Source CSF; Clarity Hazy (Clear); Tube # EDTA
[2021-05-08 12:24] LABS: Cell Count Non Hematic 20 %; Lymphocytes 2 %; Segmented Neutrophils 78 %
[2021-05-08] MEDS ORDERED: Ketorolac Tromethamine 30 MG/ML VIAL ONE (12:33)
[2021-05-08] MEDS: Piperacillin/Tazobactam 3.375 GM in Sodium Chloride 0.9% 100 ML IVPB SCH ×2 (12:40→20:34)
[2021-05-08] MEDS ORDERED: Piperacillin/Tazobactam 3.375 GM VIAL ONE (13:07)
[2021-05-08] MEDS ORDERED: Sodium Chloride 0.9% 100 ML ONE (13:07)
[2021-05-08] MEDS ORDERED: EPINEPHrine 1 MG/ML AMP ONE (14:21)
[2021-05-08] MEDS ORDERED: Bupivacaine 0.25% HCL 30 ML VIAL ONE (14:21)
[2021-05-08] MEDS ORDERED: Neomycin-Polymyxin 1 ML AMP ONE (14:24)
[2021-05-08 14:57] LABS: SARS-CoV-2 PCR by NAA Not Detected (NotDetected)
[2021-05-08] MEDS ORDERED: Lidocaine 1% PF 5 ML VIAL ONE (15:43)
[2021-05-08] MEDS ORDERED: PHENYLEPHRINE-NS 100 MCG/ML 10 ML SYRINGE ONE (15:43)
[2021-05-08] MEDS ORDERED: PROPOFOL 200 MG/20 ML VIAL ONE (15:43)
[2021-05-08] MEDS ORDERED: Rocuronium Bromide 10 MG/ML (10ML VIAL) ONE (15:43)
[2021-05-08] MEDS ORDERED: Ondansetron PF 4 MG/2 ML Vial ONE (15:43)
[2021-05-08] MEDS ORDERED: Fentanyl 100 MCG/2 ML VIAL ONE ×2 (15:51→17:59)
[2021-05-08] MEDS ORDERED: SUGAMMADEX SODIUM 200 MG/2 ML VIAL ONE (16:08)
[2021-05-08] MEDS ORDERED: Promethazine HCl 25 MG/ML VIAL IVPB PRN (16:36)
[2021-05-08] MEDS ORDERED: Promethazine HCl 25 MG/ML VIAL IM PRN (16:36)
[2021-05-08] MEDS ORDERED: Ondansetron HCl/PF 4 MG/2 ML Vial IVP PRN (16:36)
[2021-05-08] MEDS: Montelukast Sodium 10 mg Tablet PER TUBE SCH (20:35)
[2021-05-08] MEDS: Loratadine 10 MG TAB PER TUBE SCH (20:35)
[2021-05-08] MEDS: Acetaminophen 500 MG TAB PER TUBE PRN (20:44)
[2021-05-09] MEDS ORDERED: Meropenem 2 GM in Sodium Chloride 0.9% 100 ML IVPB SCH ×2 (00:45→09:00)
[2021-05-09] MEDS: Ondansetron PF 4 MG/2 ML Vial IVP PRN (03:26)
[2021-05-09] MEDS: Sodium Chloride 0.9% 1,000 ML IV SCH ×3 (05:38→21:08)
[2021-05-09] MEDS: Ketorolac Tromethamine 30 MG/ML VIAL IVP SCH ×3 (05:45→18:09)
[2021-05-09] MEDS: Bisacodyl 10 MG SUPP PR SCH ×4 (05:46→22:27)
[2021-05-09] MEDS: Linezolid 600 MG in Premix Bag 1 BAG IVPB SCH ×2 (08:03→20:23)
[2021-05-09] MEDS: Polyethylene Glycol 3350 17 GM Packet PER TUBE SCH ×2 (08:43→21:33)
[2021-05-09] MEDS: Senokot S 8.6-50 MG TAB PER TUBE SCH ×2 (08:43→21:33)
[2021-05-09] MEDS: Pantoprazole 40 MG VIAL IVP SCH ×2 (08:43→20:23)
[2021-05-09] MEDS ORDERED: MEROPENEM 1 GM/50 ML 1 GM in Premix Bag 1 BAG IVPB SCH (09:00)
[2021-05-09] MEDS ORDERED: Albuterol Sulfate 2.5 mg/3 ml Neb NEB SCH (13:00)
[2021-05-09] MEDS: Meropenem 2 GM in Sodium Chloride 0.9% 100 ML IVPB SCH ×2 (14:27→22:11)
[2021-05-09] MEDS: Metoclopramide HCl 10 MG/2 ML VIAL IVP SCH ×2 (14:30→22:11)
[2021-05-09] MEDS: Levalbuterol HCl 1.25 MG/0.5 ML NEB NEB SCH ×2 (14:30→18:19)
[2021-05-09] MEDS ORDERED: Sodium Chloride For Inhalation 0.9% 3 ML NEB ONE (14:35)
[2021-05-09] MEDS ORDERED: Sodium Chloride 0.9% 10 ML ONE (14:35)
[2021-05-09] MEDS: Loratadine 10 MG TAB PER TUBE SCH (21:32)
[2021-05-09] MEDS: Montelukast Sodium 10 mg Tablet PER TUBE SCH (21:33)
[2021-05-10] MEDS: Ketorolac Tromethamine 30 MG/ML VIAL IVP SCH ×4 (05:22→17:24)
[2021-05-10] MEDS: Sodium Chloride 0.9% 1,000 ML IV SCH ×2 (05:22→12:44)
[2021-05-10] MEDS: Bisacodyl 10 MG SUPP PR SCH ×3 (05:22→20:39)
[2021-05-10] MEDS: Metoclopramide HCl 10 MG/2 ML VIAL IVP SCH ×3 (05:24→22:39)
[2021-05-10] MEDS: Meropenem 2 GM in Sodium Chloride 0.9% 100 ML IVPB SCH ×3 (06:20→21:51)
[2021-05-10] MEDS: Levalbuterol HCl 1.25 MG/0.5 ML NEB NEB SCH ×4 (07:26→18:15)
[2021-05-10] MEDS: Pantoprazole 40 MG VIAL IVP SCH ×2 (08:46→20:38)
[2021-05-10] MEDS: Linezolid 600 MG in Premix Bag 1 BAG IVPB SCH ×2 (08:46→20:38)
[2021-05-10] MEDS: Polyethylene Glycol 3350 17 GM Packet PER TUBE SCH ×2 (12:49→20:38)
[2021-05-10] MEDS: Senokot S 8.6-50 MG TAB PER TUBE SCH ×2 (12:49→20:38)
[2021-05-10 13:00] LABS: #Eosinphils 0.3 thou/uL (0.0-0.7); #Lymphocytes 1.4 thou/uL (1.20-3.40); #Monocytes 0.7 thou/uL (0.11-0.59); #Neutrophils 2.9 thou/uL (1.40-6.50); %Eosinophils 6.6 % (0.0-10.0); %Lymphocytes 25.9 % (21.0-51.0); %Monocytes 12.4 % (0.0-10.0); %Neutrophils 55.1 % (42.0-75.0); Hemoglobin 12.8 g/dL (14.0-18.0); Mean Corpuscular HGB CONC 34.2 g/dL (32.0-36.0); Mean Corpuscular Hemoglobin 32.5 pg (27.0-31.0); Mean Platelet Volume 6.5 fL (7.4-10.4); Platelet Count 243 thou/uL (130-400); RBC Distribution Width 13.7 % (11.5-14.5); Red Blood Cell (RBC) Count 3.95 mill/uL (4.70-6.10); White Blood Cell (WBC) Count 5.2 thou/uL (4.8-10.8)
[2021-05-10 13:23] LABS: Anion Gap 16 mmol/L (10-20); BUN (Urea Nitrogen) Less than 4 mg/dL (8.9-20.6); Calc. Creatinine Clearance 177 mL/min (70-130); Calcium 8.2 mg/dL (7.8-10.44); Carbon Dioxide 27 mmol/L (22-29); Chloride 97 mmol/L (98-107); Glucose 106 mg/dL (70-105); Sodium 137 mmol/L (136-145)
[2021-05-10 13:26] LABS: Potassium 2.7 mmol/L (3.5-5.1)
[2021-05-10] MEDS ORDERED: Electrolyte Replacement Protocol FS PRN (13:45)
[2021-05-10] MEDS: Ondansetron PF 4 MG/2 ML Vial IVP PRN (14:26)
[2021-05-10] MEDS: Potassium Chloride 40 MEQ in Sodium Chloride 0.9% 250 ML 250 ML IVPB SCH ×2 (14:42→17:25)
[2021-05-10] MEDS: Vancomycin HCl 25 MG/ML Oral PER TUBE SCH (17:25)
[2021-05-10] MEDS: Loratadine 10 MG TAB PER TUBE SCH (20:38)
[2021-05-10] MEDS: Montelukast Sodium 10 mg Tablet PER TUBE SCH (20:38)
[2021-05-11] MEDS: Ketorolac Tromethamine 30 MG/ML VIAL IVP SCH ×4 (00:14→17:14)
[2021-05-11] MEDS: Vancomycin HCl 25 MG/ML Oral PER TUBE SCH ×4 (00:14→17:14)
[2021-05-11] MEDS: Sodium Chloride 0.9% 1,000 ML IV SCH ×2 (00:24→17:14)
[2021-05-11 01:45] LABS: Potassium 3.6 mmol/L (3.5-5.1)
[2021-05-11 05:13] LABS: Anion Gap 10 mmol/L (10-20); BUN (Urea Nitrogen) Less than 4 mg/dL (8.9-20.6); Calc. Creatinine Clearance 168 mL/min (70-130); Calcium 8.5 mg/dL (7.8-10.44); Carbon Dioxide 34 mmol/L (22-29); Chloride 100 mmol/L (98-107); Glucose 107 mg/dL (70-105); Potassium 3.6 mmol/L (3.5-5.1); Sodium 140 mmol/L (136-145)
[2021-05-11 05:21] LABS: Band 4 % (5-11); Eosinophils 11 % (0-10); Hemoglobin 12.9 g/dL (14.0-18.0); Hypochromia SLIGHT = 6-15 cells (100X) (0-5/hpf); Lymphocytes 28 % (21-51); MDiff Complete? YES; Mean Corpuscular HGB CONC 32.8 g/dL (32.0-36.0); Mean Corpuscular Hemoglobin 31.8 pg (27.0-31.0); Mean Corpuscular Volume 96.8 fL (78.0-98.0); Mean Platelet Volume 6.3 fL (7.4-10.4); Monocytes 7 % (0-10); Neutrophil 48 % (42-75); Platelet Count 275 thou/uL (130-400); Platelet Morphology Comment Appears Adequate; RBC Distribution Width 13.8 % (11.5-14.5); Reactive Lymphocytes 2 % (0-10); Red Blood Cell (RBC) Count 4.07 mill/uL (4.70-6.10); White Blood Cell (WBC) Count 5.3 thou/uL (4.8-10.8)
[2021-05-11] MEDS: Bisacodyl 10 MG SUPP PR SCH ×3 (06:01→21:35)
[2021-05-11] MEDS: Metoclopramide HCl 10 MG/2 ML VIAL IVP SCH ×3 (06:01→21:37)
[2021-05-11] MEDS: Meropenem 2 GM in Sodium Chloride 0.9% 100 ML IVPB SCH ×3 (06:27→21:38)
[2021-05-11] MEDS: Levalbuterol HCl 1.25 MG/0.5 ML NEB NEB SCH ×4 (07:58→18:39)
[2021-05-11] MEDS ORDERED: Potassium Chloride 20 MEQ in Premix Bag 1 BAG IVPB SCH (08:00)
[2021-05-11] MEDS: Linezolid 600 MG in Premix Bag 1 BAG IVPB SCH (09:29)
[2021-05-11] MEDS: Pantoprazole 40 MG VIAL IVP SCH ×2 (09:30→21:35)
[2021-05-11] MEDS: Polyethylene Glycol 3350 17 GM Packet PER TUBE SCH ×2 (09:31→21:34)
[2021-05-11] MEDS: Senokot S 8.6-50 MG TAB PER TUBE SCH ×2 (09:32→21:34)
[2021-05-11] MEDS: Montelukast Sodium 10 mg Tablet PER TUBE SCH (21:39)
[2021-05-11] MEDS: Loratadine 10 MG TAB PER TUBE SCH (21:39)
[2021-05-12] MEDS: Ketorolac Tromethamine 30 MG/ML VIAL IVP SCH ×4 (00:18→17:24)
[2021-05-12] MEDS: Vancomycin HCl 25 MG/ML Oral PER TUBE SCH ×5 (00:18→23:40)
[2021-05-12] MEDS: Sodium Chloride 0.9% 1,000 ML IV SCH (06:00)
[2021-05-12] MEDS: Meropenem 2 GM in Sodium Chloride 0.9% 100 ML IVPB SCH ×3 (07:00→21:43)
[2021-05-12] MEDS: Levalbuterol HCl 1.25 MG/0.5 ML NEB NEB SCH ×4 (07:05→19:10)
[2021-05-12] MEDS: Metoclopramide HCl 10 MG/2 ML VIAL IVP SCH ×3 (07:10→21:42)
[2021-05-12] MEDS: Bisacodyl 10 MG SUPP PR SCH ×3 (07:26→22:09)
[2021-05-12] MEDS: Pantoprazole 40 MG VIAL IVP SCH ×2 (09:40→21:42)
[2021-05-12] MEDS: Senokot S 8.6-50 MG TAB PER TUBE SCH ×2 (09:40→21:44)
[2021-05-12] MEDS: Polyethylene Glycol 3350 17 GM Packet PER TUBE SCH ×2 (09:40→21:44)
[2021-05-12] MEDS: Ketotifen Fumarate 0.025% Ophth Soln 5 ml Bottle EA EYE SCH (21:43)
[2021-05-12] MEDS: Montelukast Sodium 10 mg Tablet PER TUBE SCH (21:44)
[2021-05-12] MEDS: Loratadine 10 MG TAB PER TUBE SCH (21:44)
[2021-05-13] MEDS: Vancomycin HCl 25 MG/ML Oral PER TUBE SCH ×4 (05:09→23:20)
[2021-05-13] MEDS: Meropenem 2 GM in Sodium Chloride 0.9% 100 ML IVPB SCH ×3 (05:11→21:12)
[2021-05-13] MEDS: Metoclopramide HCl 10 MG/2 ML VIAL IVP SCH ×3 (05:11→21:12)
[2021-05-13] MEDS: Levalbuterol HCl 1.25 MG/0.5 ML NEB NEB SCH ×4 (07:13→21:50)
[2021-05-13] MEDS: Bisacodyl 10 MG SUPP PR SCH ×3 (07:38→21:13)
[2021-05-13] MEDS: Polyethylene Glycol 3350 17 GM Packet PER TUBE SCH ×2 (07:40→21:13)
[2021-05-13] MEDS: Saccharomyces boulardii 250 MG CAP PER TUBE SCH (09:08)
[2021-05-13] MEDS: Pantoprazole 40 MG VIAL IVP SCH ×2 (09:09→21:13)
[2021-05-13] MEDS: Senokot S 8.6-50 MG TAB PER TUBE SCH ×2 (09:09→21:13)
[2021-05-13 13:19] LABS: CSF, Glucose 54 mg/dl (40-70); CSF, Protein 61 mg/dL (15-40)
[2021-05-13 13:31] LABS: CSF Source CSF; Clarity Hazy (Clear); Tube # EDTA
[2021-05-13] MEDS: Loratadine 10 MG TAB PER TUBE SCH (21:12)
[2021-05-13] MEDS: Montelukast Sodium 10 mg Tablet PER TUBE SCH (21:12)
[2021-05-13] MEDS: Ketotifen Fumarate 0.025% Ophth Soln 5 ml Bottle EA EYE SCH (21:12)
[2021-05-14 03:40] LABS: #Basophils 0.1 thou/uL (0.0-0.2); #Eosinphils 0.9 thou/uL (0.0-0.7); #Lymphocytes 2.5 thou/uL (1.20-3.40); #Monocytes 0.7 thou/uL (0.11-0.59); #Neutrophils 2.9 thou/uL (1.40-6.50); %Basophils 1.2 % (0.0-1.0); %Lymphocytes 35.6 % (21.0-51.0); %Monocytes 9.8 % (0.0-10.0); %Neutrophils 40.3 % (42.0-75.0); Hemoglobin 14.9 g/dL (14.0-18.0); Mean Corpuscular HGB CONC 33.2 g/dL (32.0-36.0); Mean Corpuscular Hemoglobin 31.8 pg (27.0-31.0); Mean Platelet Volume 6.1 fL (7.4-10.4); Platelet Count 387 thou/uL (130-400); RBC Distribution Width 14.2 % (11.5-14.5); Red Blood Cell (RBC) Count 4.69 mill/uL (4.70-6.10); White Blood Cell (WBC) Count 7.1 thou/uL (4.8-10.8)
[2021-05-14 03:58] LABS: Anion Gap 12 mmol/L (10-20); BUN (Urea Nitrogen) 8 mg/dL (8.9-20.6); Calc. Creatinine Clearance 0 mL/min (70-130); Calcium 8.9 mg/dL (7.8-10.44); Carbon Dioxide 30 mmol/L (22-29); Chloride 97 mmol/L (98-107); Glucose 121 mg/dL (70-105); Potassium 3.9 mmol/L (3.5-5.1); Sodium 135 mmol/L (136-145)
[2021-05-14] MEDS: Vancomycin HCl 25 MG/ML Oral PER TUBE SCH ×4 (05:29→23:07)
[2021-05-14] MEDS: Bisacodyl 10 MG SUPP PR SCH ×3 (05:30→21:17)
[2021-05-14] MEDS: Metoclopramide HCl 10 MG/2 ML VIAL IVP SCH ×3 (05:30→21:43)
[2021-05-14] MEDS: Meropenem 2 GM in Sodium Chloride 0.9% 100 ML IVPB SCH ×3 (06:21→21:43)
[2021-05-14] MEDS: Levalbuterol HCl 1.25 MG/0.5 ML NEB NEB SCH ×4 (07:19→19:18)
[2021-05-14] MEDS: Polyethylene Glycol 3350 17 GM Packet PER TUBE SCH ×2 (08:41→20:52)
[2021-05-14] MEDS: Saccharomyces boulardii 250 MG CAP PER TUBE SCH (08:41)
[2021-05-14] MEDS: Pantoprazole 40 MG VIAL IVP SCH ×2 (08:41→20:52)
[2021-05-14] MEDS: Senokot S 8.6-50 MG TAB PER TUBE SCH ×2 (08:41→20:52)
[2021-05-14 11:13] LABS: Fungus Stain Final report (.)
[2021-05-14] MEDS: Loratadine 10 MG TAB PER TUBE SCH (20:52)
[2021-05-14] MEDS: Montelukast Sodium 10 mg Tablet PER TUBE SCH (20:52)
[2021-05-14] MEDS: Ketotifen Fumarate 0.025% Ophth Soln 5 ml Bottle EA EYE SCH (21:16)
[2021-05-15] MEDS: Metoclopramide HCl 10 MG/2 ML VIAL IVP SCH ×3 (05:45→22:16)
[2021-05-15] MEDS: Vancomycin HCl 25 MG/ML Oral PER TUBE SCH ×4 (05:48→22:34)
[2021-05-15] MEDS: Meropenem 2 GM in Sodium Chloride 0.9% 100 ML IVPB SCH ×3 (06:20→22:07)
[2021-05-15] MEDS: Bisacodyl 10 MG SUPP PR SCH ×3 (06:20→22:08)
[2021-05-15] MEDS: Levalbuterol HCl 1.25 MG/0.5 ML NEB NEB SCH ×4 (08:22→19:22)
[2021-05-15 08:38] LABS: CSF, Glucose 51 mg/dl (40-70); CSF, Protein 72 mg/dL (15-40)
[2021-05-15] MEDS: Polyethylene Glycol 3350 17 GM Packet PER TUBE SCH ×2 (09:56→19:41)
[2021-05-15] MEDS: Senokot S 8.6-50 MG TAB PER TUBE SCH ×2 (09:56→19:40)
[2021-05-15] MEDS: Saccharomyces boulardii 250 MG CAP PER TUBE SCH (09:56)
[2021-05-15] MEDS: Pantoprazole 40 MG VIAL IVP SCH ×2 (09:56→19:41)
[2021-05-15 11:57] LABS: CSF Source CSF
[2021-05-15 11:58] LABS: Clarity Hazy (Clear)
[2021-05-15 12:09] LABS: Cell Count Non Hematic 48 %; Segmented Neutrophils 6 %
[2021-05-15 12:11] LABS: Eosinophils 1 %
[2021-05-15 12:12] LABS: Lymphocytes 42 %
[2021-05-15] MEDS: Loratadine 10 MG TAB PER TUBE SCH (19:41)
[2021-05-15] MEDS: Ketotifen Fumarate 0.025% Ophth Soln 5 ml Bottle EA EYE SCH (19:41)
[2021-05-15] MEDS: Montelukast Sodium 10 mg Tablet PER TUBE SCH (19:41)
[2021-05-15] MEDS: Acetaminophen 500 MG TAB PER TUBE PRN (22:31)
[2021-05-16] MEDS: Metoclopramide HCl 10 MG/2 ML VIAL IVP SCH ×3 (05:31→21:07)
[2021-05-16] MEDS: Vancomycin HCl 25 MG/ML Oral PER TUBE SCH ×3 (05:31→17:41)
[2021-05-16] MEDS: Bisacodyl 10 MG SUPP PR SCH ×3 (05:31→21:30)
[2021-05-16] MEDS: Acetaminophen 500 MG TAB PER TUBE PRN ×2 (06:17→16:44)
[2021-05-16] MEDS: Meropenem 2 GM in Sodium Chloride 0.9% 100 ML IVPB SCH ×3 (06:21→21:07)
[2021-05-16] MEDS ORDERED: Diazepam 10 MG/2 ML SYRINGE IVP PRN (06:51)
[2021-05-16] MEDS: Levalbuterol HCl 1.25 MG/0.5 ML NEB NEB SCH ×4 (07:19→18:50)
[2021-05-16] MEDS ORDERED: Lorazepam 2 MG/ML VIAL SLOW IVP SCH (09:00)
[2021-05-16] MEDS: Baclofen 10 MG TAB PER TUBE PRN ×2 (09:05→21:08)
[2021-05-16] MEDS: Pantoprazole 40 MG VIAL IVP SCH ×2 (09:05→21:05)
[2021-05-16] MEDS: Polyethylene Glycol 3350 17 GM Packet PER TUBE SCH ×2 (09:05→21:30)
[2021-05-16] MEDS: Senokot S 8.6-50 MG TAB PER TUBE SCH ×2 (09:05→21:30)
[2021-05-16] MEDS: Saccharomyces boulardii 250 MG CAP PER TUBE SCH (09:05)
[2021-05-16] MEDS ORDERED: Magnevist 469MG/ML 20 ML VIAL ONE (14:12)
[2021-05-16] MEDS: Loratadine 10 MG TAB PER TUBE SCH (21:05)
[2021-05-16] MEDS: Montelukast Sodium 10 mg Tablet PER TUBE SCH (21:05)
[2021-05-16] MEDS: Ketotifen Fumarate 0.025% Ophth Soln 5 ml Bottle EA EYE SCH (21:29)
[2021-05-17] MEDS: Vancomycin HCl 25 MG/ML Oral PER TUBE SCH ×4 (00:13→17:00)
[2021-05-17 04:21] LABS: #Basophils 0.1 thou/uL (0.0-0.2); #Eosinphils 0.9 thou/uL (0.0-0.7); #Lymphocytes 1.8 thou/uL (1.20-3.40); #Neutrophils 7.3 thou/uL (1.40-6.50); %Basophils 0.6 % (0.0-1.0); %Eosinophils 8.4 % (0.0-10.0); %Lymphocytes 16.5 % (21.0-51.0); %Monocytes 8.7 % (0.0-10.0); %Neutrophils 65.9 % (42.0-75.0); Hemoglobin 14.5 g/dL (14.0-18.0); Mean Corpuscular HGB CONC 32.5 g/dL (32.0-36.0); Mean Corpuscular Volume 95.6 fL (78.0-98.0); Mean Platelet Volume 6.7 fL (7.4-10.4); Platelet Count 303 thou/uL (130-400); RBC Distribution Width 14.4 % (11.5-14.5); Red Blood Cell (RBC) Count 4.68 mill/uL (4.70-6.10); White Blood Cell (WBC) Count 11.1 thou/uL (4.8-10.8)
[2021-05-17 04:37] LABS: Anion Gap 10 mmol/L (10-20); BUN (Urea Nitrogen) 11 mg/dL (8.9-20.6); Calc. Creatinine Clearance 134 mL/min (70-130); Calcium 9.3 mg/dL (7.8-10.44); Carbon Dioxide 34 mmol/L (22-29); Chloride 97 mmol/L (98-107); Glucose 107 mg/dL (70-105); Potassium 4.6 mmol/L (3.5-5.1); Sodium 136 mmol/L (136-145)
[2021-05-17] MEDS: Metoclopramide HCl 10 MG/2 ML VIAL IVP SCH ×3 (05:49→21:12)
[2021-05-17] MEDS: Bisacodyl 10 MG SUPP PR SCH ×3 (05:50→21:13)
[2021-05-17] MEDS: Meropenem 2 GM in Sodium Chloride 0.9% 100 ML IVPB SCH ×3 (06:41→21:13)
[2021-05-17] MEDS: Levalbuterol HCl 1.25 MG/0.5 ML NEB NEB SCH ×4 (06:53→18:57)
[2021-05-17] MEDS: Acetaminophen 500 MG TAB PER TUBE PRN ×2 (08:14→18:17)
[2021-05-17] MEDS: Saccharomyces boulardii 250 MG CAP PER TUBE SCH (08:15)
[2021-05-17] MEDS: Pantoprazole 40 MG VIAL IVP SCH ×2 (08:15→21:13)
[2021-05-17] MEDS: Baclofen 10 MG TAB PER TUBE PRN (08:15)
[2021-05-17] MEDS: Polyethylene Glycol 3350 17 GM Packet PER TUBE SCH ×2 (08:15→20:00)
[2021-05-17] MEDS: Senokot S 8.6-50 MG TAB PER TUBE SCH ×2 (08:16→21:13)
[2021-05-17 14:04] LABS: CSF, Glucose 41 mg/dl (40-70); CSF, Protein 113 mg/dL (15-40)
[2021-05-17 15:18] LABS: CSF Source CSF; Clarity Hazy (Clear); Tube # EDTA
[2021-05-17 15:27] LABS: Cell Count Non Hematic 15 %; Eosinophils 16 %; Lymphocytes 33 %; Segmented Neutrophils 36 %
[2021-05-17] MEDS ORDERED: Fluconazole In NaCl,Iso-Osm 200 MG in Premix Bag 1 BAG IVPB SCH (18:00)
[2021-05-17] MEDS: Loratadine 10 MG TAB PER TUBE SCH (20:00)
[2021-05-17] MEDS: Montelukast Sodium 10 mg Tablet PER TUBE SCH (20:00)
[2021-05-17] MEDS: Ketotifen Fumarate 0.025% Ophth Soln 5 ml Bottle EA EYE SCH (21:13)
[2021-05-18] MEDS: Vancomycin HCl 25 MG/ML Oral PER TUBE SCH ×5 (00:20→23:20)
[2021-05-18 04:27] LABS: #Basophils 0.1 thou/uL (0.0-0.2); #Eosinphils 0.7 thou/uL (0.0-0.7); #Lymphocytes 2.2 thou/uL (1.20-3.40); #Monocytes 1.1 thou/uL (0.11-0.59); #Neutrophils 5.5 thou/uL (1.40-6.50); %Basophils 0.7 % (0.0-1.0); %Eosinophils 7.5 % (0.0-10.0); %Lymphocytes 22.9 % (21.0-51.0); %Monocytes 11.8 % (0.0-10.0); %Neutrophils 57.1 % (42.0-75.0); Hemoglobin 13.4 g/dL (14.0-18.0); Mean Corpuscular Hemoglobin 30.6 pg (27.0-31.0); Mean Corpuscular Volume 95.8 fL (78.0-98.0); Mean Platelet Volume 6.8 fL (7.4-10.4); Platelet Count 272 thou/uL (130-400); RBC Distribution Width 14.4 % (11.5-14.5); Red Blood Cell (RBC) Count 4.39 mill/uL (4.70-6.10); White Blood Cell (WBC) Count 9.6 thou/uL (4.8-10.8)
[2021-05-18 04:52] LABS: Anion Gap 10 mmol/L (10-20); BUN (Urea Nitrogen) 12 mg/dL (8.9-20.6); Calc. Creatinine Clearance 147 mL/min (70-130); Carbon Dioxide 32 mmol/L (22-29); Chloride 99 mmol/L (98-107); Glucose 111 mg/dL (70-105); Potassium 4.2 mmol/L (3.5-5.1); Sodium 137 mmol/L (136-145)
[2021-05-18] MEDS: Meropenem 2 GM in Sodium Chloride 0.9% 100 ML IVPB SCH ×3 (05:55→21:06)
[2021-05-18] MEDS: Metoclopramide HCl 10 MG/2 ML VIAL IVP SCH ×3 (05:55→21:05)
[2021-05-18] MEDS: Bisacodyl 10 MG SUPP PR SCH ×3 (05:56→21:07)
[2021-05-18] MEDS: Levalbuterol HCl 1.25 MG/0.5 ML NEB NEB SCH ×5 (07:57→18:25)
[2021-05-18] MEDS ORDERED: Fluconazole In NaCl,Iso-Osm 100 MG in Admixture Fee 1 EACH IVPB SCH (09:00)
[2021-05-18] MEDS: Saccharomyces boulardii 250 MG CAP PER TUBE SCH (09:04)
[2021-05-18] MEDS: Pantoprazole 40 MG VIAL IVP SCH ×2 (09:04→21:06)
[2021-05-18] MEDS: Senokot S 8.6-50 MG TAB PER TUBE SCH ×2 (09:04→21:06)
[2021-05-18] MEDS: Polyethylene Glycol 3350 17 GM Packet PER TUBE SCH ×2 (09:04→21:06)
[2021-05-18] MEDS: Acetaminophen 500 MG TAB PER TUBE PRN ×2 (09:14→21:06)
[2021-05-18 11:42] LABS: CSF, Glucose 36 mg/dl (40-70); CSF, Protein 154 mg/dL (15-40)
[2021-05-18 13:35] LABS: CSF Source CSF; Clarity Hazy (Clear); Tube # EDTA
[2021-05-18 13:48] LABS: Cell Count Non Hematic 11 %; Eosinophils 5 %; Lymphocytes 23 %; Segmented Neutrophils 60 %
[2021-05-18 15:30] LABS: CSF, Glucose 35 mg/dl (40-70); CSF, Protein 130 mg/dL (15-40)
[2021-05-18 15:38] LABS: CSF Source CSF; Clarity Hazy (Clear); Tube # EDTA
[2021-05-18 15:43] LABS: Cell Count Non Hematic 16 %; Eosinophils 5 %; Lymphocytes 30 %; Segmented Neutrophils 48 %
[2021-05-18] MEDS: Montelukast Sodium 10 mg Tablet PER TUBE SCH (21:06)
[2021-05-18] MEDS: Loratadine 10 MG TAB PER TUBE SCH (21:06)
[2021-05-18] MEDS: Baclofen 10 MG TAB PER TUBE PRN (21:06)
[2021-05-18] MEDS: Ketotifen Fumarate 0.025% Ophth Soln 5 ml Bottle EA EYE SCH (21:07)
[2021-05-18] MEDS: DEXTROSE 5% IVPB SCH (21:11)
[2021-05-18] MEDS: WATER IVPB SCH (21:11)
[2021-05-18] MEDS: AMBISOME IVPB SCH (21:11)
[2021-05-18] MEDS: Admixture Fee 1 EACH in Dextrose 5% in Water 10 ML FS SCH ×2 (21:11→23:46)
[2021-05-18] MEDS: Ondansetron PF 4 MG/2 ML Vial IVP PRN (21:28)
[2021-05-19] MEDS: Vancomycin HCl 25 MG/ML Oral PER TUBE SCH ×4 (06:10→23:09)
[2021-05-19] MEDS: Bisacodyl 10 MG SUPP PR SCH ×2 (06:10→14:42)
[2021-05-19] MEDS: Metoclopramide HCl 10 MG/2 ML VIAL IVP SCH ×3 (06:11→21:54)
[2021-05-19] MEDS: Meropenem 2 GM in Sodium Chloride 0.9% 100 ML IVPB SCH ×3 (06:35→21:53)
[2021-05-19] MEDS: Levalbuterol HCl 1.25 MG/0.5 ML NEB NEB SCH ×4 (07:37→23:40)
[2021-05-19] MEDS: Senokot S 8.6-50 MG TAB PER TUBE SCH (09:42)
[2021-05-19] MEDS: Pantoprazole 40 MG VIAL IVP SCH ×2 (09:42→21:05)
[2021-05-19] MEDS: Polyethylene Glycol 3350 17 GM Packet PER TUBE SCH (09:42)
[2021-05-19] MEDS: Saccharomyces boulardii 250 MG CAP PER TUBE SCH (09:42)
[2021-05-19] MEDS ORDERED: Meropenem 2 GM in Sodium Chloride 0.9% 100 ML IVPB SCH (14:45)
[2021-05-19] MEDS ORDERED: Senokot S 8.6-50 MG TAB PER TUBE PRN (18:49)
[2021-05-19] MEDS: WATER IVPB SCH (21:05)
[2021-05-19] MEDS: DEXTROSE 5% IVPB SCH (21:05)
[2021-05-19] MEDS: AMBISOME IVPB SCH (21:05)
[2021-05-19] MEDS: Loratadine 10 MG TAB PER TUBE SCH (21:05)
[2021-05-19] MEDS: Ketotifen Fumarate 0.025% Ophth Soln 5 ml Bottle EA EYE SCH (21:05)
[2021-05-19] MEDS: Montelukast Sodium 10 mg Tablet PER TUBE SCH (21:05)
[2021-05-19] MEDS: Admixture Fee 1 EACH in Dextrose 5% in Water 10 ML FS SCH ×2 (21:06→23:09)
[2021-05-19] MEDS: Ondansetron PF 4 MG/2 ML Vial IVP PRN (23:12)
[2021-05-20] MEDS: Vancomycin HCl 25 MG/ML Oral PER TUBE SCH ×3 (06:22→18:15)
[2021-05-20] MEDS: Metoclopramide HCl 10 MG/2 ML VIAL IVP SCH ×3 (06:22→21:11)
[2021-05-20] MEDS: Meropenem 2 GM in Sodium Chloride 0.9% 100 ML IVPB SCH ×3 (06:31→22:43)
[2021-05-20] MEDS: Polyethylene Glycol 3350 17 GM Packet PO SCH (09:02)
[2021-05-20] MEDS: Saccharomyces boulardii 250 MG CAP PER TUBE SCH (09:02)
[2021-05-20] MEDS: Pantoprazole 40 MG VIAL IVP SCH ×2 (09:02→21:09)
[2021-05-20] MEDS: Levalbuterol HCl 1.25 MG/0.5 ML NEB NEB SCH ×4 (10:32→18:22)
[2021-05-20 14:09] LABS: Ref Lab Test Ordered YEAST ID/SUSEPT; Reference Lab Name LABCORP
[2021-05-20] MEDS: Acetaminophen 500 MG TAB PER TUBE PRN (15:30)
[2021-05-20] MEDS: Admixture Fee 1 EACH in Dextrose 5% in Water 10 ML FS SCH ×2 (21:01→23:40)
[2021-05-20] MEDS: DEXTROSE 5% IVPB SCH (21:04)
[2021-05-20] MEDS: WATER IVPB SCH (21:04)
[2021-05-20] MEDS: AMBISOME IVPB SCH (21:04)
[2021-05-20] MEDS: Baclofen 10 MG TAB PER TUBE PRN (21:06)
[2021-05-20] MEDS: Loratadine 10 MG TAB PER TUBE SCH (21:08)
[2021-05-20] MEDS: Montelukast Sodium 10 mg Tablet PER TUBE SCH (21:09)
[2021-05-20] MEDS: Ondansetron PF 4 MG/2 ML Vial IVP PRN (21:11)
[2021-05-20] MEDS: Ketotifen Fumarate 0.025% Ophth Soln 5 ml Bottle EA EYE SCH (21:53)
[2021-05-21] MEDS: Vancomycin HCl 25 MG/ML Oral PER TUBE SCH ×4 (01:06→18:23)
[2021-05-21] MEDS: Meropenem 2 GM in Sodium Chloride 0.9% 100 ML IVPB SCH ×2 (05:25→14:56)
[2021-05-21] MEDS: Metoclopramide HCl 10 MG/2 ML VIAL IVP SCH ×3 (05:25→21:12)
[2021-05-21] MEDS: Levalbuterol HCl 1.25 MG/0.5 ML NEB NEB SCH ×4 (06:24→18:21)
[2021-05-21] MEDS: Saccharomyces boulardii 250 MG CAP PER TUBE SCH (09:46)
[2021-05-21] MEDS: Pantoprazole 40 MG VIAL IVP SCH ×2 (09:46→21:14)
[2021-05-21 11:55] LABS: CSF, Glucose 38 mg/dl (40-70)
[2021-05-21 12:00] LABS: CSF, Protein 149 mg/dL (15-40)
[2021-05-21 14:25] LABS: CSF Source CSF; Clarity Hazy (Clear); Tube # EDTA
[2021-05-21] MEDS: Ondansetron PF 4 MG/2 ML Vial IVP PRN (18:23)
[2021-05-21] MEDS: Admixture Fee 1 EACH in Dextrose 5% in Water 10 ML FS SCH ×2 (21:08→23:41)
[2021-05-21] MEDS: AMBISOME IVPB SCH (21:09)
[2021-05-21] MEDS: WATER IVPB SCH (21:09)
[2021-05-21] MEDS: DEXTROSE 5% IVPB SCH (21:09)
[2021-05-21] MEDS: Ketotifen Fumarate 0.025% Ophth Soln 5 ml Bottle EA EYE SCH (21:10)
[2021-05-21] MEDS: Loratadine 10 MG TAB PER TUBE SCH (21:14)
[2021-05-21] MEDS: Montelukast Sodium 10 mg Tablet PER TUBE SCH (21:14)
[2021-05-21] MEDS: Polyethylene Glycol 3350 17 GM Packet PO SCH (21:15)
[2021-05-21] MEDS: Baclofen 10 MG TAB PER TUBE PRN (21:30)
[2021-05-22] MEDS: Vancomycin HCl 25 MG/ML Oral PER TUBE SCH ×5 (00:21→23:14)
[2021-05-22] MEDS: Ondansetron PF 4 MG/2 ML Vial IVP PRN ×2 (00:22→21:10)
[2021-05-22] MEDS: Metoclopramide HCl 10 MG/2 ML VIAL IVP SCH ×3 (05:50→22:16)
[2021-05-22] MEDS: Levalbuterol HCl 1.25 MG/0.5 ML NEB NEB SCH ×4 (07:46→18:28)
[2021-05-22] MEDS: Polyethylene Glycol 3350 17 GM Packet PO SCH (08:42)
[2021-05-22] MEDS: Pantoprazole 40 MG VIAL IVP SCH ×2 (08:42→21:16)
[2021-05-22] MEDS: Saccharomyces boulardii 250 MG CAP PER TUBE SCH (08:43)
[2021-05-22] MEDS: Admixture Fee 1 EACH in Dextrose 5% in Water 10 ML FS SCH ×2 (21:10→23:14)
[2021-05-22] MEDS: DEXTROSE 5% IVPB SCH (21:10)
[2021-05-22] MEDS: AMBISOME IVPB SCH (21:10)
[2021-05-22] MEDS: WATER IVPB SCH (21:10)
[2021-05-22] MEDS: Ketotifen Fumarate 0.025% Ophth Soln 5 ml Bottle EA EYE SCH (21:15)
[2021-05-22] MEDS: Loratadine 10 MG TAB PER TUBE SCH (21:15)
[2021-05-22] MEDS: Montelukast Sodium 10 mg Tablet PER TUBE SCH (21:15)
[2021-05-22] MEDS ORDERED: Polyethylene Glycol 3350 17 GM Packet PO SCH (21:45)
[2021-05-23] MEDS: Metoclopramide HCl 10 MG/2 ML VIAL IVP SCH ×3 (05:59→23:17)
[2021-05-23] MEDS: Vancomycin HCl 25 MG/ML Oral PER TUBE SCH ×3 (05:59→17:02)
[2021-05-23 06:20] LABS: Anion Gap 9 mmol/L (10-20); BUN (Urea Nitrogen) 23 mg/dL (8.9-20.6); Calc. Creatinine Clearance 113 mL/min (70-130); Calcium 9.7 mg/dL (7.8-10.44); Carbon Dioxide 33 mmol/L (22-29); Chloride 97 mmol/L (98-107); Glucose 105 mg/dL (70-105); Magnesium 2.2 mg/dL (1.6-2.6); Potassium 3.2 mmol/L (3.5-5.1); Sodium 136 mmol/L (136-145)
[2021-05-23 06:22] LABS: #Basophils 0.1 thou/uL (0.0-0.2); #Eosinphils 0.8 thou/uL (0.0-0.7); #Lymphocytes 1.8 thou/uL (1.20-3.40); #Monocytes 0.8 thou/uL (0.11-0.59); #Neutrophils 3.1 thou/uL (1.40-6.50); %Basophils 1.2 % (0.0-1.0); %Lymphocytes 27.2 % (21.0-51.0); %Monocytes 12.6 % (0.0-10.0); %Neutrophils 47.1 % (42.0-75.0); Hemoglobin 13.1 g/dL (14.0-18.0); Mean Corpuscular HGB CONC 34.1 g/dL (32.0-36.0); Mean Corpuscular Hemoglobin 31.8 pg (27.0-31.0); Mean Corpuscular Volume 93.5 fL (78.0-98.0); Mean Platelet Volume 7.5 fL (7.4-10.4); Platelet Count 301 thou/uL (130-400); RBC Distribution Width 13.8 % (11.5-14.5); Red Blood Cell (RBC) Count 4.12 mill/uL (4.70-6.10); White Blood Cell (WBC) Count 6.5 thou/uL (4.8-10.8)
[2021-05-23] MEDS: Levalbuterol HCl 1.25 MG/0.5 ML NEB NEB SCH ×4 (07:05→18:53)
[2021-05-23] MEDS: Potassium Chloride 20 MEQ in Premix Bag 1 BAG IVPB SCH ×2 (09:19→12:59)
[2021-05-23] MEDS: Pantoprazole 40 MG VIAL IVP SCH ×2 (09:33→21:25)
[2021-05-23] MEDS: Saccharomyces boulardii 250 MG CAP PER TUBE SCH (09:34)
[2021-05-23 10:58] LABS: Phosphorus 2.7 mg/dL (2.3-4.7)
[2021-05-23] MEDS ORDERED: Potassium Chloride 20 MEQ in Premix Bag 1 BAG IVPB SCH (13:00)
[2021-05-23] MEDS: Admixture Fee 1 EACH in Dextrose 5% in Water 10 ML FS SCH ×2 (21:24→23:17)
[2021-05-23] MEDS: WATER IVPB SCH (21:24)
[2021-05-23] MEDS: AMBISOME IVPB SCH (21:24)
[2021-05-23] MEDS: Loratadine 10 MG TAB PER TUBE SCH (21:24)
[2021-05-23] MEDS: DEXTROSE 5% IVPB SCH (21:24)
[2021-05-23] MEDS: Ketotifen Fumarate 0.025% Ophth Soln 5 ml Bottle EA EYE SCH (21:24)
[2021-05-23] MEDS: Polyethylene Glycol 3350 17 GM Packet PO SCH (21:25)
[2021-05-23] MEDS: Montelukast Sodium 10 mg Tablet PER TUBE SCH (21:25)
[2021-05-23] MEDS: Ondansetron PF 4 MG/2 ML Vial IVP PRN (21:28)
[2021-05-24] MEDS: Metoclopramide HCl 10 MG/2 ML VIAL IVP SCH ×3 (05:03→21:51)
[2021-05-24 06:43] LABS: Anion Gap 14 mmol/L (10-20); BUN (Urea Nitrogen) 25 mg/dL (8.9-20.6); Calc. Creatinine Clearance 105 mL/min (70-130); Calcium 9.7 mg/dL (7.8-10.44); Carbon Dioxide 30 mmol/L (22-29); Chloride 98 mmol/L (98-107); Glucose 103 mg/dL (70-105); Potassium 3.6 mmol/L (3.5-5.1); Sodium 138 mmol/L (136-145)
[2021-05-24] MEDS: Levalbuterol HCl 1.25 MG/0.5 ML NEB NEB SCH ×4 (06:46→18:17)
[2021-05-24] MEDS: Pantoprazole 40 MG VIAL IVP SCH ×2 (08:49→21:51)
[2021-05-24] MEDS: Saccharomyces boulardii 250 MG CAP PER TUBE SCH (08:50)
[2021-05-24] MEDS: Admixture Fee 1 EACH in Dextrose 5% in Water 10 ML FS SCH (21:45)
[2021-05-24] MEDS: WATER IVPB SCH (21:45)
[2021-05-24] MEDS: DEXTROSE 5% IVPB SCH (21:45)
[2021-05-24] MEDS: AMBISOME IVPB SCH (21:45)
[2021-05-24] MEDS: Loratadine 10 MG TAB PER TUBE SCH (21:51)
[2021-05-24] MEDS: Polyethylene Glycol 3350 17 GM Packet PO SCH (21:51)
[2021-05-24] MEDS: Montelukast Sodium 10 mg Tablet PER TUBE SCH (21:51)
[2021-05-24] MEDS: Ketotifen Fumarate 0.025% Ophth Soln 5 ml Bottle EA EYE SCH (21:52)
[2021-05-24] MEDS: Ondansetron PF 4 MG/2 ML Vial IVP PRN (22:12)
[2021-05-25] MEDS: Metoclopramide HCl 10 MG/2 ML VIAL IVP SCH ×3 (06:03→22:11)
[2021-05-25] MEDS: Levalbuterol HCl 1.25 MG/0.5 ML NEB NEB SCH ×4 (06:44→18:36)
[2021-05-25] MEDS: Saccharomyces boulardii 250 MG CAP PER TUBE SCH (08:11)
[2021-05-25] MEDS: Pantoprazole 40 MG VIAL IVP SCH ×2 (08:12→20:41)
[2021-05-25 17:53] LABS: CSF, Glucose 50 mg/dl (40-70); CSF, Protein 104 mg/dL (15-40)
[2021-05-25 18:07] LABS: CSF Source CSF; Clarity Clear (Clear)
[2021-05-25 18:27] LABS: Cell Count Non Hematic 33 %; Eosinophils 5 %; Lymphocytes 26 %; Segmented Neutrophils 35 %
[2021-05-25] MEDS: Sodium Chloride For Inhalation 0.9% 3 ML NEB NEB PRN (18:37)
[2021-05-25] MEDS: DEXTROSE 5% IVPB SCH (20:40)
[2021-05-25] MEDS: WATER IVPB SCH (20:40)
[2021-05-25] MEDS: AMBISOME IVPB SCH (20:40)
[2021-05-25] MEDS: Montelukast Sodium 10 mg Tablet PER TUBE SCH (20:40)
[2021-05-25] MEDS: Loratadine 10 MG TAB PER TUBE SCH (20:40)
[2021-05-25] MEDS: Admixture Fee 1 EACH in Dextrose 5% in Water 10 ML FS SCH ×3 (20:40→23:23)
[2021-05-25] MEDS: Ketotifen Fumarate 0.025% Ophth Soln 5 ml Bottle EA EYE SCH (20:41)
[2021-05-25] MEDS: Polyethylene Glycol 3350 17 GM Packet PO SCH (21:16)
[2021-05-26] MEDS: Metoclopramide HCl 10 MG/2 ML VIAL IVP SCH ×3 (05:25→21:54)
[2021-05-26 05:42] LABS: #Basophils 0.1 thou/uL (0.0-0.2); #Eosinphils 0.8 thou/uL (0.0-0.7); #Lymphocytes 1.8 thou/uL (1.20-3.40); #Monocytes 0.6 thou/uL (0.11-0.59); #Neutrophils 3.6 thou/uL (1.40-6.50); %Basophils 1.4 % (0.0-1.0); %Eosinophils 12.1 % (0.0-10.0); %Lymphocytes 26.2 % (21.0-51.0); %Neutrophils 51.3 % (42.0-75.0); Hemoglobin 13.6 g/dL (14.0-18.0); Mean Corpuscular HGB CONC 33.3 g/dL (32.0-36.0); Mean Corpuscular Hemoglobin 30.7 pg (27.0-31.0); Mean Corpuscular Volume 92.2 fL (78.0-98.0); Mean Platelet Volume 6.9 fL (7.4-10.4); Platelet Count 307 thou/uL (130-400); RBC Distribution Width 13.8 % (11.5-14.5); Red Blood Cell (RBC) Count 4.42 mill/uL (4.70-6.10); White Blood Cell (WBC) Count 6.9 thou/uL (4.8-10.8)
[2021-05-26 06:00] LABS: Anion Gap 11 mmol/L (10-20); BUN (Urea Nitrogen) 26 mg/dL (8.9-20.6); Calc. Creatinine Clearance 112 mL/min (70-130); Carbon Dioxide 31 mmol/L (22-29); Chloride 99 mmol/L (98-107); Glucose 104 mg/dL (70-105); Potassium 3.5 mmol/L (3.5-5.1); Sodium 137 mmol/L (136-145)
[2021-05-26] MEDS ORDERED: Sodium Chloride For Inhalation 0.9% 3 ML NEB ONE (07:04)
[2021-05-26] MEDS: Saccharomyces boulardii 250 MG CAP PER TUBE SCH (08:49)
[2021-05-26] MEDS: Pantoprazole 40 MG VIAL IVP SCH ×2 (08:49→21:51)
[2021-05-26] MEDS: Potassium Chloride 20 MEQ in Premix Bag 1 BAG IVPB SCH ×2 (08:51→11:02)
[2021-05-26] MEDS: Levalbuterol HCl 1.25 MG/0.5 ML NEB NEB SCH ×4 (09:00→19:00)
[2021-05-26] MEDS: Sodium Chloride For Inhalation 0.9% 3 ML NEB NEB PRN (19:01)
[2021-05-26] MEDS: Admixture Fee 1 EACH in Dextrose 5% in Water 10 ML FS SCH ×2 (21:49→23:43)
[2021-05-26] MEDS: AMBISOME IVPB SCH (21:50)
[2021-05-26] MEDS: WATER IVPB SCH (21:50)
[2021-05-26] MEDS: Loratadine 10 MG TAB PER TUBE SCH (21:50)
[2021-05-26] MEDS: Montelukast Sodium 10 mg Tablet PER TUBE SCH (21:50)
[2021-05-26] MEDS: DEXTROSE 5% IVPB SCH (21:50)
[2021-05-26] MEDS: Polyethylene Glycol 3350 17 GM Packet PO SCH (21:51)
[2021-05-26] MEDS: Ondansetron PF 4 MG/2 ML Vial IVP PRN (21:52)
[2021-05-26] MEDS: Ketotifen Fumarate 0.025% Ophth Soln 5 ml Bottle EA EYE SCH (21:53)
[2021-05-27] MEDS: Metoclopramide HCl 10 MG/2 ML VIAL IVP SCH ×3 (06:38→21:19)
[2021-05-27] MEDS: Levalbuterol HCl 1.25 MG/0.5 ML NEB NEB SCH ×4 (08:28→18:33)
[2021-05-27] MEDS: Pantoprazole 40 MG VIAL IVP SCH ×2 (09:00→20:23)
[2021-05-27] MEDS: Saccharomyces boulardii 250 MG CAP PER TUBE SCH (09:00)
[2021-05-27 11:53] LABS: CSF, Glucose 51 mg/dl (40-70); CSF, Protein 84 mg/dL (15-40)
[2021-05-27 12:22] LABS: #Basophils 0.1 thou/uL (0.0-0.2); #Eosinphils 0.5 thou/uL (0.0-0.7); #Lymphocytes 1.5 thou/uL (1.20-3.40); #Monocytes 0.5 thou/uL (0.11-0.59); #Neutrophils 3.2 thou/uL (1.40-6.50); %Basophils 1.2 % (0.0-1.0); %Eosinophils 9.2 % (0.0-10.0); %Lymphocytes 25.6 % (21.0-51.0); %Monocytes 8.8 % (0.0-10.0); %Neutrophils 55.2 % (42.0-75.0); Hemoglobin 13.8 g/dL (14.0-18.0); Mean Corpuscular HGB CONC 34.7 g/dL (32.0-36.0); Mean Corpuscular Hemoglobin 31.8 pg (27.0-31.0); Mean Corpuscular Volume 91.7 fL (78.0-98.0); Mean Platelet Volume 7.1 fL (7.4-10.4); Platelet Count 302 thou/uL (130-400); RBC Distribution Width 13.9 % (11.5-14.5); Red Blood Cell (RBC) Count 4.34 mill/uL (4.70-6.10); White Blood Cell (WBC) Count 5.7 thou/uL (4.8-10.8)
[2021-05-27 12:40] LABS: Anion Gap 15 mmol/L (10-20); BUN (Urea Nitrogen) 27 mg/dL (8.9-20.6); Calc. Creatinine Clearance 94 mL/min (70-130); Calcium 9.7 mg/dL (7.8-10.44); Carbon Dioxide 25 mmol/L (22-29); Chloride 101 mmol/L (98-107); Glucose 113 mg/dL (70-105); Potassium 3.7 mmol/L (3.5-5.1); Sodium 137 mmol/L (136-145)
[2021-05-27 12:46] LABS: CSF Source CSF; Clarity Cloudy/Turbid (Clear); Tube # 1
[2021-05-27 12:52] LABS: Cell Count Non Hematic 7 %; Eosinophils 1 %; Lymphocytes 9 %; Segmented Neutrophils 82 %
[2021-05-27] MEDS: Cefepime 2 GM in Sodium Chloride 0.9% 100 ML IVPB SCH ×2 (14:20→22:22)
[2021-05-27] MEDS: Acetaminophen 650 MG Suppository PR PRN (17:08)
[2021-05-27] MEDS: Sodium Chloride For Inhalation 0.9% 3 ML NEB NEB PRN (18:33)
[2021-05-27] MEDS: Montelukast Sodium 10 mg Tablet PER TUBE SCH (20:23)
[2021-05-27] MEDS: Polyethylene Glycol 3350 17 GM Packet PO SCH (20:23)
[2021-05-27] MEDS: Loratadine 10 MG TAB PER TUBE SCH (20:23)
[2021-05-27] MEDS: Ketotifen Fumarate 0.025% Ophth Soln 5 ml Bottle EA EYE SCH (20:45)
[2021-05-27] MEDS ORDERED: Cefepime 2 GM in Sodium Chloride 0.9% 100 ML IVPB SCH (21:00)
[2021-05-27] MEDS: AMBISOME IVPB SCH (21:18)
[2021-05-27] MEDS: WATER IVPB SCH (21:18)
[2021-05-27] MEDS: DEXTROSE 5% IVPB SCH (21:18)
[2021-05-27] MEDS: Admixture Fee 1 EACH in Dextrose 5% in Water 10 ML FS SCH ×2 (21:19→22:37)
[2021-05-27] MEDS: Ondansetron PF 4 MG/2 ML Vial IVP PRN (21:24)
[2021-05-27] MEDS: Baclofen 10 MG TAB PER TUBE PRN (22:22)
[2021-05-27] MEDS ORDERED: Ketorolac Tromethamine 30 MG/ML VIAL IVP SCH (22:45)
[2021-05-27] MEDS ORDERED: Promethazine HCl 12.5 MG in Sodium Chloride 0.9% 50 ML IVPB SCH (22:45)
[2021-05-28 05:10] LABS: #Basophils 0.1 thou/uL (0.0-0.2); #Lymphocytes 1.6 thou/uL (1.20-3.40); #Monocytes 0.6 thou/uL (0.11-0.59); %Basophils 0.9 % (0.0-1.0); %Eosinophils 15.8 % (0.0-10.0); %Lymphocytes 25.7 % (21.0-51.0); %Monocytes 9.1 % (0.0-10.0); %Neutrophils 48.5 % (42.0-75.0); Hemoglobin 13.5 g/dL (14.0-18.0); Mean Corpuscular HGB CONC 33.2 g/dL (32.0-36.0); Mean Corpuscular Hemoglobin 30.7 pg (27.0-31.0); Mean Corpuscular Volume 92.4 fL (78.0-98.0); Mean Platelet Volume 7.2 fL (7.4-10.4); Platelet Count 286 thou/uL (130-400); RBC Distribution Width 13.8 % (11.5-14.5); White Blood Cell (WBC) Count 6.3 thou/uL (4.8-10.8)
[2021-05-28 05:29] LABS: Anion Gap 13 mmol/L (10-20); BUN (Urea Nitrogen) 27 mg/dL (8.9-20.6); Calc. Creatinine Clearance 79 mL/min (70-130); Calcium 9.9 mg/dL (7.8-10.44); Carbon Dioxide 26 mmol/L (22-29); Chloride 98 mmol/L (98-107); Glucose 112 mg/dL (70-105); Potassium 3.8 mmol/L (3.5-5.1); Sodium 133 mmol/L (136-145)
[2021-05-28] MEDS: Cefepime 2 GM in Sodium Chloride 0.9% 100 ML IVPB SCH ×3 (06:00→21:35)
[2021-05-28] MEDS: Metoclopramide HCl 10 MG/2 ML VIAL IVP SCH ×3 (06:02→20:32)
[2021-05-28] MEDS: Levalbuterol HCl 1.25 MG/0.5 ML NEB NEB SCH ×4 (07:01→18:49)
[2021-05-28] MEDS: Pantoprazole 40 MG VIAL IVP SCH ×2 (07:56→20:30)
[2021-05-28] MEDS: Saccharomyces boulardii 250 MG CAP PER TUBE SCH (07:56)
[2021-05-28] MEDS: Acetaminophen 500 MG TAB PER TUBE PRN (07:58)
[2021-05-28] MEDS: Ondansetron PF 4 MG/2 ML Vial IVP PRN (08:00)
[2021-05-28] MEDS ORDERED: Sodium Chloride 0.9% 1,000 ML IV SCH (09:15)
[2021-05-28] MEDS: Ketorolac Tromethamine 30 MG/ML VIAL IVP PRN ×2 (09:55→18:25)
[2021-05-28] MEDS: Polyethylene Glycol 3350 17 GM Packet PO SCH ×2 (09:55→20:30)
[2021-05-28] MEDS: Polyethylene Glycol 3350 17 GM Packet PER TUBE PRN (10:00)
[2021-05-28] MEDS: Bisacodyl 10 MG SUPP PR PRN (12:00)
[2021-05-28] MEDS: Ketotifen Fumarate 0.025% Ophth Soln 5 ml Bottle EA EYE SCH (20:30)
[2021-05-28] MEDS: Loratadine 10 MG TAB PER TUBE SCH (20:30)
[2021-05-28] MEDS: Montelukast Sodium 10 mg Tablet PER TUBE SCH (20:30)
[2021-05-28] MEDS: WATER IVPB SCH (21:35)
[2021-05-28] MEDS: DEXTROSE 5% IVPB SCH (21:35)
[2021-05-28] MEDS: Admixture Fee 1 EACH in Dextrose 5% in Water 10 ML FS SCH ×2 (21:35→23:10)
[2021-05-28] MEDS: AMBISOME IVPB SCH (21:35)
[2021-05-28] MEDS: Promethazine HCl 12.5 MG in Sodium Chloride 0.9% 50 ML IVPB PRN (21:55)
[2021-05-29] MEDS: Ketorolac Tromethamine 30 MG/ML VIAL IVP PRN ×3 (00:36→10:37)
[2021-05-29] MEDS: Ondansetron PF 4 MG/2 ML Vial IVP PRN ×3 (03:18→16:26)
[2021-05-29] MEDS: Cefepime 2 GM in Sodium Chloride 0.9% 100 ML IVPB SCH ×3 (05:20→20:25)
[2021-05-29] MEDS: Metoclopramide HCl 10 MG/2 ML VIAL IVP SCH ×3 (05:20→20:21)
[2021-05-29] MEDS: Levalbuterol HCl 1.25 MG/0.5 ML NEB NEB SCH ×4 (07:11→19:28)
[2021-05-29] MEDS ORDERED: Vancomycin HCl 25 MG/ML Oral PO SCH (09:00)
[2021-05-29] MEDS: Saccharomyces boulardii 250 MG CAP PER TUBE SCH (09:00)
[2021-05-29] MEDS: Pantoprazole 40 MG VIAL IVP SCH ×2 (09:00→20:22)
[2021-05-29] MEDS: Vancomycin HCl 25 MG/ML Oral PO SCH ×2 (16:12→20:24)
[2021-05-29] MEDS: WATER IVPB SCH (20:19)
[2021-05-29] MEDS: AMBISOME IVPB SCH (20:19)
[2021-05-29] MEDS: DEXTROSE 5% IVPB SCH (20:19)
[2021-05-29] MEDS: Admixture Fee 1 EACH in Dextrose 5% in Water 10 ML FS SCH ×2 (20:20→22:07)
[2021-05-29] MEDS: Ketotifen Fumarate 0.025% Ophth Soln 5 ml Bottle EA EYE SCH (20:20)
[2021-05-29] MEDS: Loratadine 10 MG TAB PER TUBE SCH (20:21)
[2021-05-29] MEDS: Montelukast Sodium 10 mg Tablet PER TUBE SCH (20:21)
[2021-05-29] MEDS: Polyethylene Glycol 3350 17 GM Packet PO SCH (20:22)
[2021-05-30] MEDS: Vancomycin HCl 25 MG/ML Oral PO SCH ×4 (03:15→21:10)
[2021-05-30 05:18] LABS: Anion Gap 11 mmol/L (10-20); BUN (Urea Nitrogen) 19 mg/dL (8.9-20.6); Calc. Creatinine Clearance 95 mL/min (70-130); Calcium 9.1 mg/dL (7.8-10.44); Carbon Dioxide 26 mmol/L (22-29); Chloride 107 mmol/L (98-107); Glucose 104 mg/dL (70-105); Potassium 3.2 mmol/L (3.5-5.1); Sodium 141 mmol/L (136-145)
[2021-05-30 05:36] LABS: ALT (SGPT) 42 U/L (8-55); AST (SGOT) 25 U/L (5-34); Albumin 3.2 g/dL (3.5-5.0); Alkaline Phosphatase 148 U/L (40-110); Bilirubin, Direct 0.2 mg/dL (0.1-0.3); Bilirubin, Total 0.5 mg/dL (0.2-1.2); Protein, Total 5.4 g/dL (6.0-8.3)
[2021-05-30] MEDS: Cefepime 2 GM in Sodium Chloride 0.9% 100 ML IVPB SCH ×3 (05:47→21:04)
[2021-05-30] MEDS: Metoclopramide HCl 10 MG/2 ML VIAL IVP SCH ×3 (05:47→21:04)
[2021-05-30] MEDS ORDERED: Potassium Bicarbonate/Cit Ac 20 MEQ TAB PER TUBE SCH ×2 (06:30→10:15)
[2021-05-30] MEDS: Levalbuterol HCl 1.25 MG/0.5 ML NEB NEB SCH ×4 (07:55→18:30)
[2021-05-30] MEDS ORDERED: Potassium Chloride 20 MEQ TAB PO SCH (09:00)
[2021-05-30] MEDS: Saccharomyces boulardii 250 MG CAP PER TUBE SCH (09:02)
[2021-05-30] MEDS: Pantoprazole 40 MG VIAL IVP SCH ×2 (09:02→20:45)
[2021-05-30] MEDS ORDERED: GENTAMICIN IVPB SCH ×2 (12:15→16:00)
[2021-05-30] MEDS ORDERED: ADMIXTURE FEE IVPB SCH (12:15)
[2021-05-30] MEDS ORDERED: SODIUM CHLORIDE 0.9% IVPB SCH (16:00)
[2021-05-30] MEDS: Ketorolac Tromethamine 30 MG/ML VIAL IVP PRN (16:35)
[2021-05-30] MEDS: Ondansetron PF 4 MG/2 ML Vial IVP PRN (16:37)
[2021-05-30] MEDS: Acetaminophen 500 MG TAB PER TUBE PRN (17:28)
[2021-05-30] MEDS: Loratadine 10 MG TAB PER TUBE SCH (20:45)
[2021-05-30] MEDS: Montelukast Sodium 10 mg Tablet PER TUBE SCH (20:45)
[2021-05-30] MEDS: Polyethylene Glycol 3350 17 GM Packet PO SCH (20:45)
[2021-05-30] MEDS: AMBISOME IVPB SCH (21:04)
[2021-05-30] MEDS: WATER IVPB SCH (21:04)
[2021-05-30] MEDS: DEXTROSE 5% IVPB SCH (21:04)
[2021-05-30] MEDS: Admixture Fee 1 EACH in Dextrose 5% in Water 10 ML FS SCH ×2 (21:05→23:30)
[2021-05-30] MEDS: Ketotifen Fumarate 0.025% Ophth Soln 5 ml Bottle EA EYE SCH (21:45)
[2021-05-30] MEDS: Promethazine HCl 12.5 MG in Sodium Chloride 0.9% 50 ML IVPB PRN (21:59)
[2021-05-31] MEDS: Vancomycin HCl 25 MG/ML Oral PO SCH ×4 (04:15→20:45)
[2021-05-31] MEDS: Metoclopramide HCl 10 MG/2 ML VIAL IVP SCH ×3 (05:15→21:40)
[2021-05-31] MEDS: Cefepime 2 GM in Sodium Chloride 0.9% 100 ML IVPB SCH ×3 (05:15→20:46)
[2021-05-31] MEDS: Ondansetron PF 4 MG/2 ML Vial IVP PRN (07:44)
[2021-05-31] MEDS: Ketorolac Tromethamine 30 MG/ML VIAL IVP PRN (07:44)
[2021-05-31] MEDS: Pantoprazole 40 MG VIAL IVP SCH (07:45)
[2021-05-31] MEDS: Saccharomyces boulardii 250 MG CAP PER TUBE SCH (07:47)
[2021-05-31] MEDS: GENTAMICIN IVPB SCH (08:10)
[2021-05-31] MEDS: SODIUM CHLORIDE 0.9% IVPB SCH (08:10)
[2021-05-31] MEDS: Levalbuterol HCl 1.25 MG/0.5 ML NEB NEB SCH ×4 (08:11→18:34)
[2021-05-31] MEDS: Acetaminophen 500 MG TAB PER TUBE PRN (15:55)
[2021-05-31] MEDS: Baclofen 10 MG TAB PER TUBE PRN (15:55)
[2021-05-31] MEDS: Loratadine 10 MG TAB PER TUBE SCH (20:46)
[2021-05-31] MEDS: Montelukast Sodium 10 mg Tablet PER TUBE SCH (20:46)
[2021-05-31] MEDS: Polyethylene Glycol 3350 17 GM Packet PO SCH (20:46)
[2021-05-31] MEDS: Admixture Fee 1 EACH in Dextrose 5% in Water 10 ML FS SCH ×2 (20:47→23:25)
[2021-05-31] MEDS: WATER IVPB SCH (20:48)
[2021-05-31] MEDS: AMBISOME IVPB SCH (20:48)
[2021-05-31] MEDS: DEXTROSE 5% IVPB SCH (20:48)
[2021-05-31] MEDS: Ketotifen Fumarate 0.025% Ophth Soln 5 ml Bottle EA EYE SCH (20:52)
[2021-06-01] MEDS: Vancomycin HCl 25 MG/ML Oral PO SCH ×4 (03:59→22:13)
[2021-06-01 05:15] LABS: Anion Gap 10 mmol/L (10-20); BUN (Urea Nitrogen) 21 mg/dL (8.9-20.6); Calc. Creatinine Clearance 109 mL/min (70-130); Calcium 9.1 mg/dL (7.8-10.44); Carbon Dioxide 29 mmol/L (22-29); Chloride 102 mmol/L (98-107); Glucose 108 mg/dL (70-105); Potassium 3.1 mmol/L (3.5-5.1); Sodium 138 mmol/L (136-145)
[2021-06-01] MEDS: Cefepime 2 GM in Sodium Chloride 0.9% 100 ML IVPB SCH ×3 (05:42→22:09)
[2021-06-01] MEDS: Metoclopramide HCl 10 MG/2 ML VIAL IVP SCH ×3 (05:42→22:17)
[2021-06-01] MEDS ORDERED: Potassium Chloride 40 MEQ in Sodium Chloride 0.9% 250 ML 250 ML IVPB SCH (06:45)
[2021-06-01] MEDS: GENTAMICIN IVPB SCH (07:17)
[2021-06-01] MEDS: SODIUM CHLORIDE 0.9% IVPB SCH (07:17)
[2021-06-01] MEDS: Acetaminophen 500 MG TAB PER TUBE PRN (07:28)
[2021-06-01] MEDS: Famotidine 40 MG/5 ML Oral Suspension PER TUBE SCH ×2 (07:30→22:17)
[2021-06-01] MEDS: Baclofen 10 MG TAB PER TUBE PRN (07:32)
[2021-06-01] MEDS: Saccharomyces boulardii 250 MG CAP PER TUBE SCH (07:32)
[2021-06-01] MEDS: Levalbuterol HCl 1.25 MG/0.5 ML NEB NEB SCH ×4 (08:32→18:35)
[2021-06-01 09:26] LABS: CSF, Glucose 33 mg/dl (40-70); CSF, Protein 80 mg/dL (15-40)
[2021-06-01 10:44] LABS: #Eosinphils 0.7 thou/uL (0.0-0.7); #Lymphocytes 1.3 thou/uL (1.20-3.40); #Monocytes 0.5 thou/uL (0.11-0.59); #Neutrophils 2.2 thou/uL (1.40-6.50); %Basophils 0.5 % (0.0-1.0); %Lymphocytes 27.2 % (21.0-51.0); %Monocytes 10.1 % (0.0-10.0); %Neutrophils 47.2 % (42.0-75.0); Hemoglobin 12.5 g/dL (14.0-18.0); Mean Corpuscular HGB CONC 34.8 g/dL (32.0-36.0); Mean Corpuscular Hemoglobin 31.9 pg (27.0-31.0); Mean Corpuscular Volume 91.8 fL (78.0-98.0); Mean Platelet Volume 7.2 fL (7.4-10.4); Platelet Count 241 thou/uL (130-400); White Blood Cell (WBC) Count 4.6 thou/uL (4.8-10.8)
[2021-06-01 11:51] LABS: CSF Source CSF; Tube # EDTA
[2021-06-01 11:52] LABS: CSF RBC Count - Manual 1 /cu.mm (None Seen); CSF WBC/NonHematics Count-Man 33 /cu.mm (0-5); Clarity Clear (Clear)
[2021-06-01 12:10] LABS: Cell Count Non Hematic 20 %; Lymphocytes 80 %
[2021-06-01] MEDS: WATER IVPB SCH (22:10)
[2021-06-01] MEDS: DEXTROSE 5% IVPB SCH (22:10)
[2021-06-01] MEDS: Loratadine 10 MG TAB PER TUBE SCH (22:10)
[2021-06-01] MEDS: Admixture Fee 1 EACH in Dextrose 5% in Water 10 ML FS SCH (22:10)
[2021-06-01] MEDS: Montelukast Sodium 10 mg Tablet PER TUBE SCH (22:10)
[2021-06-01] MEDS: AMBISOME IVPB SCH (22:10)
[2021-06-01] MEDS: Polyethylene Glycol 3350 17 GM Packet PO SCH (22:11)
[2021-06-01] MEDS: Ketotifen Fumarate 0.025% Ophth Soln 5 ml Bottle EA EYE SCH (22:17)
[2021-06-02] MEDS: Promethazine HCl 12.5 MG in Sodium Chloride 0.9% 50 ML IVPB PRN ×2 (00:46→21:34)
[2021-06-02] MEDS: Admixture Fee 1 EACH in Dextrose 5% in Water 10 ML FS SCH ×3 (01:06→23:50)
[2021-06-02] MEDS: Vancomycin HCl 25 MG/ML Oral PO SCH ×4 (04:53→20:58)
[2021-06-02] MEDS: Cefepime 2 GM in Sodium Chloride 0.9% 100 ML IVPB SCH ×3 (04:55→20:56)
[2021-06-02 06:14] LABS: Carbon Dioxide 21 mmol/L (22-29)
[2021-06-02 06:17] LABS: #Lymphocytes 1.9 thou/uL (1.20-3.40); #Monocytes 0.6 thou/uL (0.11-0.59); %Basophils 0.8 % (0.0-1.0); %Eosinophils 17.9 % (0.0-10.0); %Lymphocytes 34.5 % (21.0-51.0); %Monocytes 10.4 % (0.0-10.0); %Neutrophils 36.4 % (42.0-75.0); Hemoglobin 12.6 g/dL (14.0-18.0); Mean Corpuscular HGB CONC 33.9 g/dL (32.0-36.0); Mean Corpuscular Hemoglobin 31.1 pg (27.0-31.0); Mean Corpuscular Volume 91.7 fL (78.0-98.0); Mean Platelet Volume 7.3 fL (7.4-10.4); Platelet Count 200 thou/uL (130-400); RBC Distribution Width 13.9 % (11.5-14.5); Red Blood Cell (RBC) Count 4.06 mill/uL (4.70-6.10); White Blood Cell (WBC) Count 5.4 thou/uL (4.8-10.8)
[2021-06-02] MEDS: Metoclopramide HCl 10 MG/2 ML VIAL IVP SCH ×3 (06:25→20:58)
[2021-06-02 06:35] LABS: Calcium 9.2 mg/dL (7.8-10.44); Chloride 102 mmol/L (98-107); Potassium 3.1 mmol/L (3.5-5.1); Sodium 137 mmol/L (136-145)
[2021-06-02 06:36] LABS: Glucose 102 mg/dL (70-105)
[2021-06-02 06:37] LABS: Anion Gap 11 mmol/L (10-20)
[2021-06-02 06:39] LABS: Calc. Creatinine Clearance 121 mL/min (70-130)
[2021-06-02 06:40] LABS: BUN (Urea Nitrogen) 21 mg/dL (8.9-20.6)
[2021-06-02 06:41] LABS: Magnesium 1.5 mg/dL (1.6-2.6)
[2021-06-02] MEDS ORDERED: Potassium Bicarbonate/Cit Ac 20 MEQ TAB PER TUBE SCH (06:45)
[2021-06-02] MEDS ORDERED: Magnesium 2 GM/50 ML 2 GM in Premix Bag 1 BAG IVPB SCH (07:00)
[2021-06-02] MEDS: Levalbuterol HCl 1.25 MG/0.5 ML NEB NEB SCH ×4 (07:09→18:17)
[2021-06-02] MEDS: Ondansetron PF 4 MG/2 ML Vial IVP PRN ×2 (07:26→16:14)
[2021-06-02] MEDS: Famotidine 40 MG/5 ML Oral Suspension PER TUBE SCH ×2 (07:27→20:49)
[2021-06-02] MEDS: Baclofen 10 MG TAB PER TUBE PRN (07:27)
[2021-06-02] MEDS: Saccharomyces boulardii 250 MG CAP PER TUBE SCH (07:38)
[2021-06-02] MEDS: GENTAMICIN IT SCH (09:12)
[2021-06-02] MEDS: SODIUM CHLORIDE 0.9% IT SCH (09:12)
[2021-06-02] MEDS: AMBISOME IVPB SCH (20:43)
[2021-06-02] MEDS: WATER IVPB SCH (20:43)
[2021-06-02] MEDS: DEXTROSE 5% IVPB SCH (20:43)
[2021-06-02] MEDS: Ketotifen Fumarate 0.025% Ophth Soln 5 ml Bottle EA EYE SCH (20:49)
[2021-06-02] MEDS: Polyethylene Glycol 3350 17 GM Packet PO SCH (20:58)
[2021-06-02] MEDS: Montelukast Sodium 10 mg Tablet PER TUBE SCH (20:58)
[2021-06-02] MEDS: Loratadine 10 MG TAB PER TUBE SCH (20:58)
[2021-06-02] MEDS ORDERED: Sterile Water 10 ML VIAL IVP SCH (21:45)
[2021-06-02] MEDS ORDERED: Activase 2 MG VIAL CATH SCH (21:45)
[2021-06-02] MEDS ORDERED: Sterile Water 10 ML ONE (22:47)
[2021-06-03 05:11] LABS: Anion Gap 11 mmol/L (10-20); BUN (Urea Nitrogen) 22 mg/dL (8.9-20.6); Calc. Creatinine Clearance 110 mL/min (70-130); Calcium 9.1 mg/dL (7.8-10.44); Carbon Dioxide 27 mmol/L (22-29); Chloride 102 mmol/L (98-107); Glucose 110 mg/dL (70-105); Sodium 137 mmol/L (136-145)
[2021-06-03] MEDS: Cefepime 2 GM in Sodium Chloride 0.9% 100 ML IVPB SCH ×3 (05:11→21:31)
[2021-06-03] MEDS: Vancomycin HCl 25 MG/ML Oral PO SCH ×4 (05:11→23:00)
[2021-06-03] MEDS: Metoclopramide HCl 10 MG/2 ML VIAL IVP SCH ×3 (05:14→22:00)
[2021-06-03 05:17] LABS: Potassium 2.9 mmol/L (3.5-5.1)
[2021-06-03] MEDS: Potassium Chloride 40 MEQ in Premix Bag 1 BAG IVPB SCH ×2 (06:21→09:39)
[2021-06-03] MEDS: Acetaminophen 500 MG TAB PER TUBE PRN (06:21)
[2021-06-03] MEDS: Levalbuterol HCl 1.25 MG/0.5 ML NEB NEB SCH ×4 (06:58→18:59)
[2021-06-03] MEDS: GENTAMICIN IT SCH (07:55)
[2021-06-03] MEDS: SODIUM CHLORIDE 0.9% IT SCH (07:55)
[2021-06-03] MEDS: Famotidine 40 MG/5 ML Oral Suspension PER TUBE SCH ×2 (09:07→20:50)
[2021-06-03] MEDS: Saccharomyces boulardii 250 MG CAP PER TUBE SCH (09:07)
[2021-06-03] MEDS ORDERED: Magnesium 2 GM/50 ML 2 GM in Premix Bag 1 BAG IVPB SCH (11:15)
[2021-06-03] MEDS: Ondansetron PF 4 MG/2 ML Vial IVP PRN (18:30)
[2021-06-03] MEDS: Loratadine 10 MG TAB PER TUBE SCH (20:43)
[2021-06-03] MEDS: Montelukast Sodium 10 mg Tablet PER TUBE SCH (20:43)
[2021-06-03] MEDS: Ketotifen Fumarate 0.025% Ophth Soln 5 ml Bottle EA EYE SCH (20:43)
[2021-06-03] MEDS: Polyethylene Glycol 3350 17 GM Packet PO SCH (20:43)
[2021-06-03] MEDS: AMBISOME IVPB SCH (20:44)
[2021-06-03] MEDS: DEXTROSE 5% IVPB SCH (20:44)
[2021-06-03] MEDS: Admixture Fee 1 EACH in Dextrose 5% in Water 10 ML FS SCH ×2 (20:44→23:59)
[2021-06-03] MEDS: WATER IVPB SCH (20:44)
[2021-06-03] MEDS: Promethazine HCl 12.5 MG in Sodium Chloride 0.9% 50 ML IVPB PRN (21:52)
[2021-06-04] MEDS: Vancomycin HCl 25 MG/ML Oral PO SCH ×4 (03:08→21:17)
[2021-06-04] MEDS: Cefepime 2 GM in Sodium Chloride 0.9% 100 ML IVPB SCH ×3 (05:19→21:17)
[2021-06-04] MEDS: Acetaminophen 500 MG TAB PER TUBE PRN (07:01)
[2021-06-04] MEDS: Metoclopramide HCl 10 MG/2 ML VIAL IVP SCH ×3 (07:24→20:20)
[2021-06-04] MEDS: Ondansetron PF 4 MG/2 ML Vial IVP PRN ×2 (07:25→17:15)
[2021-06-04] MEDS: Levalbuterol HCl 1.25 MG/0.5 ML NEB NEB SCH ×4 (08:02→18:35)
[2021-06-04] MEDS: Famotidine 40 MG/5 ML Oral Suspension PER TUBE SCH ×2 (08:11→20:38)
[2021-06-04] MEDS: Saccharomyces boulardii 250 MG CAP PER TUBE SCH (08:11)
[2021-06-04] MEDS: GENTAMICIN IT SCH (08:17)
[2021-06-04] MEDS: SODIUM CHLORIDE 0.9% IT SCH (08:17)
[2021-06-04 08:58] LABS: #Eosinphils 1.5 thou/uL (0.0-0.7); #Lymphocytes 1.6 thou/uL (1.20-3.40); #Monocytes 0.9 thou/uL (0.11-0.59); #Neutrophils 2.9 thou/uL (1.40-6.50); %Basophils 0.7 % (0.0-1.0); %Eosinophils 22.2 % (0.0-10.0); %Lymphocytes 22.6 % (21.0-51.0); %Monocytes 12.4 % (0.0-10.0); %Neutrophils 42.1 % (42.0-75.0); Mean Corpuscular Hemoglobin 31.3 pg (27.0-31.0); Mean Corpuscular Volume 92.1 fL (78.0-98.0); Platelet Count 272 thou/uL (130-400); RBC Distribution Width 14.1 % (11.5-14.5); Red Blood Cell (RBC) Count 3.83 mill/uL (4.70-6.10); White Blood Cell (WBC) Count 6.9 thou/uL (4.8-10.8)
[2021-06-04 09:21] LABS: Anion Gap 8 mmol/L (10-20); BUN (Urea Nitrogen) 23 mg/dL (8.9-20.6); Calc. Creatinine Clearance 105 mL/min (70-130); Calcium 9.2 mg/dL (7.8-10.44); Carbon Dioxide 28 mmol/L (22-29); Chloride 104 mmol/L (98-107); Glucose 98 mg/dL (70-105); Magnesium 1.9 mg/dL (1.6-2.6); Sodium 137 mmol/L (136-145)
[2021-06-04] MEDS ORDERED: Magnesium 2 GM/50 ML 2 GM in Premix Bag 1 BAG IVPB SCH (10:45)
[2021-06-04] MEDS ORDERED: Potassium Chloride 40 MEQ in Sodium Chloride 0.9% 250 ML 250 ML IVPB SCH (12:00)
[2021-06-04] MEDS: Polyethylene Glycol 3350 17 GM Packet PO SCH (20:21)
[2021-06-04] MEDS: Montelukast Sodium 10 mg Tablet PER TUBE SCH (20:37)
[2021-06-04] MEDS: Ketotifen Fumarate 0.025% Ophth Soln 5 ml Bottle EA EYE SCH (20:37)
[2021-06-04] MEDS: Loratadine 10 MG TAB PER TUBE SCH (20:37)
[2021-06-04] MEDS: Admixture Fee 1 EACH in Dextrose 5% in Water 10 ML FS SCH (21:50)
[2021-06-04] MEDS: DEXTROSE 5% IVPB SCH (21:51)
[2021-06-04] MEDS: AMBISOME IVPB SCH (21:51)
[2021-06-04] MEDS: WATER IVPB SCH (21:51)
[2021-06-04] MEDS: Promethazine HCl 12.5 MG in Sodium Chloride 0.9% 50 ML IVPB PRN (21:53)
[2021-06-05] MEDS: Admixture Fee 1 EACH in Dextrose 5% in Water 10 ML FS SCH ×3 (00:06→23:09)
[2021-06-05] MEDS: Vancomycin HCl 25 MG/ML Oral PO SCH ×4 (04:17→21:40)
[2021-06-05 04:58] LABS: Anion Gap 10 mmol/L (10-20); BUN (Urea Nitrogen) 25 mg/dL (8.9-20.6); Calc. Creatinine Clearance 115 mL/min (70-130); Calcium 9.1 mg/dL (7.8-10.44); Carbon Dioxide 26 mmol/L (22-29); Chloride 104 mmol/L (98-107); Glucose 105 mg/dL (70-105); Sodium 137 mmol/L (136-145)
[2021-06-05 05:01] LABS: Potassium 2.9 mmol/L (3.5-5.1)
[2021-06-05] MEDS: Cefepime 2 GM in Sodium Chloride 0.9% 100 ML IVPB SCH ×3 (05:07→21:41)
[2021-06-05] MEDS: Potassium Chloride 40 MEQ in Premix Bag 1 BAG IVPB SCH ×2 (05:34→09:57)
[2021-06-05] MEDS: Acetaminophen 500 MG TAB PER TUBE PRN (06:52)
[2021-06-05] MEDS: Ondansetron PF 4 MG/2 ML Vial IVP PRN (07:30)
[2021-06-05] MEDS: Levalbuterol HCl 1.25 MG/0.5 ML NEB NEB SCH ×4 (08:07→18:42)
[2021-06-05 09:22] LABS: CSF, Glucose 46 mg/dl (40-70); CSF, Protein 81 mg/dL (15-40)
[2021-06-05] MEDS: Saccharomyces boulardii 250 MG CAP PER TUBE SCH (09:52)
[2021-06-05] MEDS: Famotidine 40 MG/5 ML Oral Suspension PER TUBE SCH ×2 (09:53→21:40)
[2021-06-05] MEDS: Metoclopramide HCl 10 MG/2 ML VIAL IVP SCH ×2 (09:55→21:44)
[2021-06-05] MEDS: SODIUM CHLORIDE 0.9% IT SCH (10:14)
[2021-06-05] MEDS: GENTAMICIN IT SCH (10:14)
[2021-06-05 11:32] LABS: CSF Source CSF; Clarity Clear (Clear)
[2021-06-05 11:33] LABS: CSF RBC Count - Manual 0 /cu.mm (None Seen); CSF WBC/NonHematics Count-Man 8 /cu.mm (0-5); Tube # EDTA
[2021-06-05] MEDS: Promethazine HCl 12.5 MG in Sodium Chloride 0.9% 50 ML IVPB PRN (20:35)
[2021-06-05] MEDS: DEXTROSE 5% IVPB SCH (21:39)
[2021-06-05] MEDS: WATER IVPB SCH (21:39)
[2021-06-05] MEDS: AMBISOME IVPB SCH (21:39)
[2021-06-05] MEDS: Loratadine 10 MG TAB PER TUBE SCH (21:41)
[2021-06-05] MEDS: Polyethylene Glycol 3350 17 GM Packet PO SCH (21:41)
[2021-06-05] MEDS: Montelukast Sodium 10 mg Tablet PER TUBE SCH (21:41)
[2021-06-05] MEDS: Ketotifen Fumarate 0.025% Ophth Soln 5 ml Bottle EA EYE SCH (21:43)
[2021-06-06] MEDS: Vancomycin HCl 25 MG/ML Oral PO SCH ×4 (03:53→21:34)
[2021-06-06] MEDS: Cefepime 2 GM in Sodium Chloride 0.9% 100 ML IVPB SCH ×3 (05:51→21:34)
[2021-06-06] MEDS: Acetaminophen 500 MG TAB PER TUBE PRN (07:24)
[2021-06-06] MEDS: Ondansetron PF 4 MG/2 ML Vial IVP PRN (07:25)
[2021-06-06] MEDS: Levalbuterol HCl 1.25 MG/0.5 ML NEB NEB SCH ×2 (08:10→09:50)
[2021-06-06] MEDS: Saccharomyces boulardii 250 MG CAP PER TUBE SCH (08:24)
[2021-06-06] MEDS: Famotidine 40 MG/5 ML Oral Suspension PER TUBE SCH ×2 (08:24→21:32)
[2021-06-06] MEDS: Metoclopramide HCl 10 MG/2 ML VIAL IVP SCH ×2 (08:28→21:33)
[2021-06-06] MEDS: SODIUM CHLORIDE 0.9% IT SCH (08:55)
[2021-06-06] MEDS: GENTAMICIN IT SCH (08:55)
[2021-06-06 10:57] LABS: Anion Gap 11 mmol/L (10-20); BUN (Urea Nitrogen) 24 mg/dL (8.9-20.6); Calc. Creatinine Clearance 114 mL/min (70-130); Calcium 9.3 mg/dL (7.8-10.44); Carbon Dioxide 27 mmol/L (22-29); Chloride 103 mmol/L (98-107); Glucose 117 mg/dL (70-105); Sodium 138 mmol/L (136-145)
[2021-06-06] MEDS ORDERED: Potassium Bicarbonate/Cit Ac 20 MEQ TAB PER TUBE SCH (11:15)
[2021-06-06] MEDS ORDERED: Levalbuterol HCl 1.25 MG/0.5 ML NEB NEB PRN (13:48)
[2021-06-06] MEDS ORDERED: Potassium Bicarbonate/Cit Ac 20 MEQ TAB PO SCH (17:45)
[2021-06-06] MEDS ORDERED: Nitroglycerin 50 MG/250 ML BOT 250 ML ONE (20:47)
[2021-06-06] MEDS: Admixture Fee 1 EACH in Dextrose 5% in Water 10 ML FS SCH (21:31)
[2021-06-06] MEDS: WATER IVPB SCH (21:32)
[2021-06-06] MEDS: DEXTROSE 5% IVPB SCH (21:32)
[2021-06-06] MEDS: AMBISOME IVPB SCH (21:32)
[2021-06-06] MEDS: Loratadine 10 MG TAB PER TUBE SCH (21:33)
[2021-06-06] MEDS: Ketotifen Fumarate 0.025% Ophth Soln 5 ml Bottle EA EYE SCH (21:33)
[2021-06-06] MEDS: Montelukast Sodium 10 mg Tablet PER TUBE SCH (21:33)
[2021-06-06] MEDS: Polyethylene Glycol 3350 17 GM Packet PO SCH (21:33)
[2021-06-06] MEDS: Promethazine HCl 12.5 MG in Sodium Chloride 0.9% 50 ML IVPB PRN (21:38)
[2021-06-07] MEDS: Admixture Fee 1 EACH in Dextrose 5% in Water 10 ML FS SCH ×2 (00:03→21:44)
[2021-06-07] MEDS: Cefepime 2 GM in Sodium Chloride 0.9% 100 ML IVPB SCH ×3 (05:01→22:39)
[2021-06-07] MEDS: Vancomycin HCl 25 MG/ML Oral PO SCH ×4 (05:02→21:48)
[2021-06-07] MEDS: Ondansetron PF 4 MG/2 ML Vial IVP PRN ×3 (06:34→18:26)
[2021-06-07] MEDS: Acetaminophen 500 MG TAB PER TUBE PRN (06:34)
[2021-06-07] MEDS: GENTAMICIN IT SCH (07:47)
[2021-06-07] MEDS: SODIUM CHLORIDE 0.9% IT SCH (07:47)
[2021-06-07 07:53] LABS: Anion Gap 12 mmol/L (10-20); BUN (Urea Nitrogen) 27 mg/dL (8.9-20.6); Calc. Creatinine Clearance 102 mL/min (70-130); Calcium 9.6 mg/dL (7.8-10.44); Carbon Dioxide 28 mmol/L (22-29); Chloride 102 mmol/L (98-107); Glucose 130 mg/dL (70-105); Magnesium 1.6 mg/dL (1.6-2.6); Potassium 3.3 mmol/L (3.5-5.1); Sodium 139 mmol/L (136-145)
[2021-06-07] MEDS ORDERED: Ketorolac Tromethamine 30 MG/ML VIAL IVP SCH (09:00)
[2021-06-07] MEDS ORDERED: Potassium Bicarbonate/Cit Ac 20 MEQ TAB PER TUBE SCH (09:00)
[2021-06-07] MEDS ORDERED: Magnesium Sulfate 2 GM in Sodium Chloride 0.9% 100 ML IVPB SCH (09:00)
[2021-06-07] MEDS ORDERED: Magnesium 2 GM/50 ML 2 GM in Premix Bag 1 BAG IVPB SCH (09:00)
[2021-06-07] MEDS: Famotidine 40 MG/5 ML Oral Suspension PER TUBE SCH ×2 (09:05→21:47)
[2021-06-07] MEDS: Metoclopramide HCl 10 MG/2 ML VIAL IVP SCH ×2 (09:14→21:05)
[2021-06-07] MEDS ORDERED: Potassium Bicarbonate/Cit Ac 20 MEQ TAB PO SCH ×2 (09:15→11:00)
[2021-06-07] MEDS: Levalbuterol HCl 1.25 MG/0.5 ML NEB NEB SCH (10:48)
[2021-06-07] MEDS: Saccharomyces boulardii 250 MG CAP PER TUBE SCH (11:09)
[2021-06-07] MEDS ORDERED: Simethicone 40 MG/0.6 ML Drop 30 ML BOT PO SCH (11:30)
[2021-06-07] MEDS: Simethicone 40 MG/0.6 ML Drop 30 ML BOT PO SCH ×2 (15:05→21:35)
[2021-06-07] MEDS: Baclofen 10 MG TAB PER TUBE PRN (18:24)
[2021-06-07] MEDS: Polyethylene Glycol 3350 17 GM Packet PO SCH (20:46)
[2021-06-07] MEDS: Montelukast Sodium 10 mg Tablet PER TUBE SCH (20:46)
[2021-06-07] MEDS: Loratadine 10 MG TAB PER TUBE SCH (20:46)
[2021-06-07] MEDS: Promethazine HCl 12.5 MG in Sodium Chloride 0.9% 50 ML IVPB PRN (21:05)
[2021-06-07] MEDS: WATER IVPB SCH (21:47)
[2021-06-07] MEDS: AMBISOME IVPB SCH (21:47)
[2021-06-07] MEDS: DEXTROSE 5% IVPB SCH (21:47)
[2021-06-07] MEDS: Ketotifen Fumarate 0.025% Ophth Soln 5 ml Bottle EA EYE SCH (22:15)
[2021-06-08] MEDS: Admixture Fee 1 EACH in Dextrose 5% in Water 10 ML FS SCH ×3 (00:04→23:29)
[2021-06-08] MEDS: Ondansetron PF 4 MG/2 ML Vial IVP PRN ×2 (01:05→08:07)
[2021-06-08 04:41] LABS: Anion Gap 11 mmol/L (10-20); BUN (Urea Nitrogen) 29 mg/dL (8.9-20.6); Calc. Creatinine Clearance 110 mL/min (70-130); Carbon Dioxide 24 mmol/L (22-29); Chloride 104 mmol/L (98-107); Glucose 119 mg/dL (70-105); Sodium 136 mmol/L (136-145)
[2021-06-08] MEDS: Vancomycin HCl 25 MG/ML Oral PO SCH ×4 (04:52→23:29)
[2021-06-08 04:59] LABS: #Eosinphils 0.3 thou/uL (0.0-0.7); #Lymphocytes 1.5 thou/uL (1.20-3.40); #Monocytes 0.9 thou/uL (0.11-0.59); #Neutrophils 4.1 thou/uL (1.40-6.50); %Basophils 0.1 % (0.0-1.0); %Lymphocytes 21.4 % (21.0-51.0); %Monocytes 13.7 % (0.0-10.0); %Neutrophils 60.8 % (42.0-75.0); Hemoglobin 12.4 g/dL (14.0-18.0); Mean Corpuscular HGB CONC 35.5 g/dL (32.0-36.0); Mean Corpuscular Hemoglobin 32.5 pg (27.0-31.0); Mean Corpuscular Volume 91.5 fL (78.0-98.0); Platelet Count 259 thou/uL (130-400); Red Blood Cell (RBC) Count 3.81 mill/uL (4.70-6.10); White Blood Cell (WBC) Count 6.8 thou/uL (4.8-10.8)
[2021-06-08] MEDS ORDERED: Potassium Chloride 40 MEQ in Premix Bag 1 BAG IVPB SCH (05:00)
[2021-06-08] MEDS: Cefepime 2 GM in Sodium Chloride 0.9% 100 ML IVPB SCH ×3 (05:08→23:29)
[2021-06-08] MEDS ORDERED: Vancomycin 1 GM in Premix Bag 1 BAG IVPB SCH (06:00)
[2021-06-08 07:10] LABS: SARS-CoV-2 NAA Rapid Test Not Detected (NotDetected)
[2021-06-08] MEDS: GENTAMICIN IT SCH (07:38)
[2021-06-08] MEDS: SODIUM CHLORIDE 0.9% IT SCH (07:38)
[2021-06-08] MEDS ORDERED: Thrombin 5000 UNITS/5 ML VIAL ONE (07:46)
[2021-06-08] MEDS ORDERED: Fentanyl 100 MCG/2 ML VIAL ONE (07:59)
[2021-06-08] MEDS ORDERED: Lidocaine 2% Jelly 5 ML TUBE ONE (07:59)
[2021-06-08] MEDS ORDERED: PROPOFOL 200 MG/20 ML VIAL ONE (08:25)
[2021-06-08] MEDS ORDERED: PHENYLEPHRINE-NS 100 MCG/ML 10 ML SYRINGE ONE (08:25)
[2021-06-08] MEDS ORDERED: Lidocaine 1% PF 5 ML VIAL ONE (08:25)
[2021-06-08] MEDS ORDERED: Ondansetron PF 4 MG/2 ML Vial ONE (08:25)
[2021-06-08] MEDS ORDERED: Dexamethasone 20 MG/5 ML VIAL ONE (08:25)
[2021-06-08] MEDS ORDERED: Rocuronium Bromide 10 MG/ML (10ML VIAL) ONE (08:25)
[2021-06-08] MEDS ORDERED: Glycopyrrolate 0.2 MG/ML 5 ML SYRINGE ONE (08:25)
[2021-06-08] MEDS: Levalbuterol HCl 1.25 MG/0.5 ML NEB NEB SCH (09:45)
[2021-06-08] MEDS: Acetaminophen 650 MG Suppository PR PRN (09:59)
[2021-06-08] MEDS ORDERED: Magnesium Sulfate 4 GM in Sodium Chloride 0.9% 250 ML 250 ML IVPB SCH (10:00)
[2021-06-08 10:05] LABS: CSF Source CSF
[2021-06-08 10:06] LABS: Clarity Hazy (Clear)
[2021-06-08] MEDS ORDERED: Morphine 2 MG/ML VIAL ONE (10:15)
[2021-06-08 10:21] LABS: Fluid, Protein Less than 1.0 g/dL (Not Available)
[2021-06-08] MEDS: Ketorolac Tromethamine 30 MG/ML VIAL IVP PRN ×2 (10:21→18:20)
[2021-06-08] MEDS: Metoclopramide HCl 10 MG/2 ML VIAL IVP SCH ×2 (10:24→20:39)
[2021-06-08 10:29] LABS: Fluid, Glucose 39 mg/dL (Not Available)
[2021-06-08 11:03] LABS: Cell Count Non Hematic 39 %; Lymphocytes 10 %; Segmented Neutrophils 50 %
[2021-06-08] MEDS: Simethicone 40 MG/0.6 ML Drop 30 ML BOT PO SCH ×3 (12:28→21:39)
[2021-06-08] MEDS: Famotidine 40 MG/5 ML Oral Suspension PER TUBE SCH ×2 (12:28→20:38)
[2021-06-08] MEDS: Saccharomyces boulardii 250 MG CAP PER TUBE SCH (12:28)
[2021-06-08 15:13] LABS: Fungus Culture Final report (.)
[2021-06-08] MEDS: Potassium Bicarbonate/Cit Ac 20 MEQ TAB PO SCH (15:48)
[2021-06-08] MEDS ORDERED: Ketorolac Tromethamine 30 MG/ML VIAL ONE (18:18)
[2021-06-08] MEDS: Loratadine 10 MG TAB PER TUBE SCH (20:39)
[2021-06-08] MEDS: Ketotifen Fumarate 0.025% Ophth Soln 5 ml Bottle EA EYE SCH (20:39)
[2021-06-08] MEDS: Montelukast Sodium 10 mg Tablet PER TUBE SCH (20:40)
[2021-06-08] MEDS: Baclofen 10 MG TAB PER TUBE PRN (20:40)
[2021-06-08] MEDS: Promethazine HCl 12.5 MG in Sodium Chloride 0.9% 50 ML IVPB PRN (20:40)
[2021-06-08] MEDS: Polyethylene Glycol 3350 17 GM Packet PO SCH (20:40)
[2021-06-08] MEDS: DEXTROSE 5% IVPB SCH (21:24)
[2021-06-08] MEDS: WATER IVPB SCH (21:24)
[2021-06-08] MEDS: AMBISOME IVPB SCH (21:24)
[2021-06-09 04:17] LABS: Anion Gap 10 mmol/L (10-20); BUN (Urea Nitrogen) 36 mg/dL (8.9-20.6); Calc. Creatinine Clearance 106 mL/min (70-130); Carbon Dioxide 25 mmol/L (22-29); Chloride 106 mmol/L (98-107); Glucose 100 mg/dL (70-105); Potassium 3.5 mmol/L (3.5-5.1); Sodium 137 mmol/L (136-145)
[2021-06-09] MEDS: Cefepime 2 GM in Sodium Chloride 0.9% 100 ML IVPB SCH ×3 (06:08→20:59)
[2021-06-09] MEDS: Ondansetron PF 4 MG/2 ML Vial IVP PRN ×2 (06:52→17:41)
[2021-06-09] MEDS ORDERED: Potassium Bicarbonate/Cit Ac 20 MEQ TAB PER TUBE SCH (07:00)
[2021-06-09] MEDS: Potassium Bicarbonate/Cit Ac 20 MEQ TAB PO SCH ×2 (08:14→16:15)
[2021-06-09] MEDS: Famotidine 40 MG/5 ML Oral Suspension PER TUBE SCH ×2 (08:14→20:54)
[2021-06-09] MEDS: GENTAMICIN IT SCH (08:14)
[2021-06-09] MEDS: SODIUM CHLORIDE 0.9% IT SCH (08:14)
[2021-06-09] MEDS: Simethicone 40 MG/0.6 ML Drop 30 ML BOT PO SCH ×3 (08:15→20:10)
[2021-06-09] MEDS: Saccharomyces boulardii 250 MG CAP PER TUBE SCH (08:15)
[2021-06-09] MEDS: Metoclopramide HCl 10 MG/2 ML VIAL IVP SCH ×2 (08:22→20:06)
[2021-06-09] MEDS: Levalbuterol HCl 1.25 MG/0.5 ML NEB NEB SCH (09:04)
[2021-06-09] MEDS: Baclofen 10 MG TAB PER TUBE PRN (11:04)
[2021-06-09] MEDS ORDERED: diphenhydrAMINE 30 GM TUBE TOP PRN (17:51)
[2021-06-09] MEDS: Ketorolac Tromethamine 30 MG/ML VIAL IVP PRN (20:07)
[2021-06-09] MEDS: Ketotifen Fumarate 0.025% Ophth Soln 5 ml Bottle EA EYE SCH (20:12)
[2021-06-09] MEDS: Polyethylene Glycol 3350 17 GM Packet PO SCH (20:54)
[2021-06-09] MEDS: Loratadine 10 MG TAB PER TUBE SCH (20:54)
[2021-06-09] MEDS: Acetaminophen 500 MG TAB PER TUBE PRN (20:54)
[2021-06-09] MEDS: Montelukast Sodium 10 mg Tablet PER TUBE SCH (20:54)
[2021-06-09] MEDS: Admixture Fee 1 EACH in Dextrose 5% in Water 10 ML FS SCH (21:44)
[2021-06-09] MEDS: DEXTROSE 5% IVPB SCH (21:44)
[2021-06-09] MEDS: AMBISOME IVPB SCH (21:44)
[2021-06-09] MEDS: WATER IVPB SCH (21:44)
[2021-06-10] MEDS ORDERED: Fentanyl CADD 0 ML ONE (00:07)
[2021-06-10] MEDS: Admixture Fee 1 EACH in Dextrose 5% in Water 10 ML FS SCH ×3 (00:25→23:55)
[2021-06-10] MEDS: Promethazine HCl 12.5 MG in Sodium Chloride 0.9% 50 ML IVPB PRN ×3 (00:25→23:55)
[2021-06-10] MEDS: Cefepime 2 GM in Sodium Chloride 0.9% 100 ML IVPB SCH ×3 (05:14→21:16)
[2021-06-10] MEDS: GENTAMICIN IT SCH (05:16)
[2021-06-10] MEDS: SODIUM CHLORIDE 0.9% IT SCH (05:16)
[2021-06-10] MEDS: Ondansetron PF 4 MG/2 ML Vial IVP PRN (07:37)
[2021-06-10] MEDS: Potassium Bicarbonate/Cit Ac 20 MEQ TAB PO SCH (08:46)
[2021-06-10] MEDS: Simethicone 40 MG/0.6 ML Drop 30 ML BOT PO SCH ×3 (08:47→21:11)
[2021-06-10] MEDS: Saccharomyces boulardii 250 MG CAP PER TUBE SCH (08:47)
[2021-06-10] MEDS: Famotidine 40 MG/5 ML Oral Suspension PER TUBE SCH ×2 (08:50→21:11)
[2021-06-10] MEDS: Levalbuterol HCl 1.25 MG/0.5 ML NEB NEB SCH (09:10)
[2021-06-10] MEDS: Metoclopramide HCl 10 MG/2 ML VIAL IVP SCH ×2 (09:10→21:10)
[2021-06-10 11:00] LABS: #Basophils 0.1 thou/uL (0.0-0.2); #Eosinphils 0.6 thou/uL (0.0-0.7); #Lymphocytes 1.8 thou/uL (1.20-3.40); #Monocytes 0.7 thou/uL (0.11-0.59); #Neutrophils 2.9 thou/uL (1.40-6.50); %Basophils 1.2 % (0.0-1.0); %Eosinophils 10.2 % (0.0-10.0); %Lymphocytes 29.7 % (21.0-51.0); %Monocytes 11.4 % (0.0-10.0); %Neutrophils 47.4 % (42.0-75.0); Hemoglobin 13.7 g/dL (14.0-18.0); Mean Corpuscular HGB CONC 34.5 g/dL (32.0-36.0); Mean Corpuscular Hemoglobin 31.9 pg (27.0-31.0); Mean Corpuscular Volume 92.3 fL (78.0-98.0); Platelet Count 241 thou/uL (130-400); RBC Distribution Width 14.6 % (11.5-14.5); White Blood Cell (WBC) Count 6.1 thou/uL (4.8-10.8)
[2021-06-10] MEDS: Ketorolac Tromethamine 30 MG/ML VIAL IVP PRN ×2 (11:04→23:55)
[2021-06-10 11:18] LABS: Anion Gap 12 mmol/L (10-20); BUN (Urea Nitrogen) 25 mg/dL (8.9-20.6); Calc. Creatinine Clearance 107 mL/min (70-130); Calcium 9.8 mg/dL (7.8-10.44); Carbon Dioxide 32 mmol/L (22-29); Chloride 100 mmol/L (98-107); Glucose 118 mg/dL (70-105); Magnesium 1.8 mg/dL (1.6-2.6); Potassium 3.6 mmol/L (3.5-5.1); Sodium 140 mmol/L (136-145)
[2021-06-10] MEDS ORDERED: Magnesium 2 GM/50 ML 2 GM in Premix Bag 1 BAG IVPB SCH (12:30)
[2021-06-10] MEDS ORDERED: Activase 2 MG VIAL CATH SCH (12:30)
[2021-06-10] MEDS: Acetaminophen 500 MG TAB PER TUBE PRN (20:12)
[2021-06-10] MEDS: Loratadine 10 MG TAB PER TUBE SCH (21:11)
[2021-06-10] MEDS: Ketotifen Fumarate 0.025% Ophth Soln 5 ml Bottle EA EYE SCH (21:11)
[2021-06-10] MEDS: Montelukast Sodium 10 mg Tablet PER TUBE SCH (21:11)
[2021-06-10] MEDS: Polyethylene Glycol 3350 17 GM Packet PO SCH (21:12)
[2021-06-10] MEDS: DEXTROSE 5% IVPB SCH (21:14)
[2021-06-10] MEDS: AMBISOME IVPB SCH (21:14)
[2021-06-10] MEDS: WATER IVPB SCH (21:14)
[2021-06-11 04:51] LABS: Anion Gap 10 mmol/L (10-20); BUN (Urea Nitrogen) 33 mg/dL (8.9-20.6); Calc. Creatinine Clearance 121 mL/min (70-130); Calcium 9.7 mg/dL (7.8-10.44); Carbon Dioxide 32 mmol/L (22-29); Chloride 99 mmol/L (98-107); Glucose 107 mg/dL (70-105); Potassium 3.2 mmol/L (3.5-5.1); Sodium 138 mmol/L (136-145)
[2021-06-11] MEDS ORDERED: Potassium Chloride 40 MEQ in Premix Bag 1 BAG IVPB SCH (05:00)
[2021-06-11] MEDS: SODIUM CHLORIDE 0.9% IT SCH (05:30)
[2021-06-11] MEDS: GENTAMICIN IT SCH (05:30)
[2021-06-11] MEDS: Cefepime 2 GM in Sodium Chloride 0.9% 100 ML IVPB SCH ×3 (05:54→22:09)
[2021-06-11] MEDS: Ondansetron PF 4 MG/2 ML Vial IVP PRN (07:05)
[2021-06-11] MEDS: Metoclopramide HCl 10 MG/2 ML VIAL IVP SCH ×2 (08:24→22:09)
[2021-06-11] MEDS: Ketorolac Tromethamine 30 MG/ML VIAL IVP PRN (08:25)
[2021-06-11] MEDS: Saccharomyces boulardii 250 MG CAP PER TUBE SCH (08:26)
[2021-06-11] MEDS: Simethicone 40 MG/0.6 ML Drop 30 ML BOT PO SCH ×3 (08:26→22:03)
[2021-06-11] MEDS: Famotidine 40 MG/5 ML Oral Suspension PER TUBE SCH ×2 (08:26→22:10)
[2021-06-11] MEDS: Levalbuterol HCl 1.25 MG/0.5 ML NEB NEB SCH (09:16)
[2021-06-11] MEDS: Loratadine/Pseudoephedrine 10/240 mg Tablet PER TUBE SCH (10:24)
[2021-06-11 10:55] LABS: CSF, Glucose 46 mg/dl (40-70); CSF, Protein 150 mg/dL (15-40)
[2021-06-11 12:12] LABS: Cell Count Non Hematic 35 %; Lymphocytes 65 %
[2021-06-11 12:14] LABS: Segmented Neutrophils 0 %
[2021-06-11 12:16] LABS: CSF Source CSF; Clarity Hazy (Clear)
[2021-06-11] MEDS: Potassium Bicarbonate/Cit Ac 20 MEQ TAB PO SCH (16:08)
[2021-06-11] MEDS: Polyethylene Glycol 3350 17 GM Packet PO SCH (22:02)
[2021-06-11] MEDS: Ketotifen Fumarate 0.025% Ophth Soln 5 ml Bottle EA EYE SCH (22:03)
[2021-06-11] MEDS: DEXTROSE 5% IVPB SCH (22:04)
[2021-06-11] MEDS: AMBISOME IVPB SCH (22:04)
[2021-06-11] MEDS: Promethazine HCl 12.5 MG in Sodium Chloride 0.9% 50 ML IVPB PRN (22:04)
[2021-06-11] MEDS: WATER IVPB SCH (22:04)
[2021-06-11] MEDS: Admixture Fee 1 EACH in Dextrose 5% in Water 10 ML FS SCH ×2 (22:04→23:50)
[2021-06-11] MEDS: Montelukast Sodium 10 mg Tablet PER TUBE SCH (22:10)
[2021-06-12] MEDS: SODIUM CHLORIDE 0.9% IT SCH (05:31)
[2021-06-12] MEDS: GENTAMICIN IT SCH (05:31)
[2021-06-12] MEDS: Cefepime 2 GM in Sodium Chloride 0.9% 100 ML IVPB SCH ×3 (05:48→21:10)
[2021-06-12] MEDS: Ondansetron PF 4 MG/2 ML Vial IVP PRN (07:10)
[2021-06-12] MEDS ORDERED: Sodium Chloride 0.9% 15 ML NEB ONE (08:16)
[2021-06-12] MEDS: Loratadine/Pseudoephedrine 10/240 mg Tablet PER TUBE SCH (08:19)
[2021-06-12] MEDS: Potassium Bicarbonate/Cit Ac 20 MEQ TAB PO SCH ×2 (08:19→17:02)
[2021-06-12] MEDS: Saccharomyces boulardii 250 MG CAP PER TUBE SCH (08:19)
[2021-06-12] MEDS: Famotidine 40 MG/5 ML Oral Suspension PER TUBE SCH ×2 (08:19→21:08)
[2021-06-12] MEDS: Levalbuterol HCl 1.25 MG/0.5 ML NEB NEB SCH (08:20)
[2021-06-12] MEDS: Simethicone 40 MG/0.6 ML Drop 30 ML BOT PO SCH ×3 (08:21→21:09)
[2021-06-12] MEDS: Metoclopramide HCl 10 MG/2 ML VIAL IVP SCH ×2 (08:27→21:08)
[2021-06-12 10:11] LABS: CSF, Glucose 49 mg/dl (40-70); CSF, Protein 152 mg/dL (15-40)
[2021-06-12 11:01] LABS: CSF Source CSF; Clarity Hazy (Clear)
[2021-06-12 11:03] LABS: Cell Count Non Hematic 56 %; Lymphocytes 44 %
[2021-06-12 11:08] LABS: #Eosinphils 0.4 thou/uL (0.0-0.7); #Lymphocytes 1.3 thou/uL (1.20-3.40); #Monocytes 0.6 thou/uL (0.11-0.59); #Neutrophils 2.1 thou/uL (1.40-6.50); %Eosinophils 9.6 % (0.0-10.0); %Lymphocytes 29.8 % (21.0-51.0); %Monocytes 12.6 % (0.0-10.0); Hemoglobin 14.1 g/dL (14.0-18.0); Mean Corpuscular Hemoglobin 32.1 pg (27.0-31.0); Mean Corpuscular Volume 91.7 fL (78.0-98.0); Mean Platelet Volume 7.1 fL (7.4-10.4); Platelet Count 231 thou/uL (130-400); RBC Distribution Width 14.5 % (11.5-14.5); Red Blood Cell (RBC) Count 4.39 mill/uL (4.70-6.10); White Blood Cell (WBC) Count 4.5 thou/uL (4.8-10.8)
[2021-06-12 11:19] LABS: Anion Gap 13 mmol/L (10-20); BUN (Urea Nitrogen) 25 mg/dL (8.9-20.6); Calc. Creatinine Clearance 118 mL/min (70-130); Calcium 9.1 mg/dL (7.8-10.44); Carbon Dioxide 28 mmol/L (22-29); Chloride 100 mmol/L (98-107); Glucose 124 mg/dL (70-105); Magnesium 1.7 mg/dL (1.6-2.6); Potassium 4.5 mmol/L (3.5-5.1); Sodium 136 mmol/L (136-145)
[2021-06-12] MEDS ORDERED: Magnesium 2 GM/50 ML 2 GM in Premix Bag 1 BAG IVPB SCH (13:00)
[2021-06-12] MEDS: Ketorolac Tromethamine 30 MG/ML VIAL IVP PRN (17:24)
[2021-06-12] MEDS: Admixture Fee 1 EACH in Dextrose 5% in Water 10 ML FS SCH ×2 (21:06→23:01)
[2021-06-12] MEDS: DEXTROSE 5% IVPB SCH (21:07)
[2021-06-12] MEDS: WATER IVPB SCH (21:07)
[2021-06-12] MEDS: AMBISOME IVPB SCH (21:07)
[2021-06-12] MEDS: Ketotifen Fumarate 0.025% Ophth Soln 5 ml Bottle EA EYE SCH (21:08)
[2021-06-12] MEDS: Montelukast Sodium 10 mg Tablet PER TUBE SCH (21:09)
[2021-06-12] MEDS: Polyethylene Glycol 3350 17 GM Packet PO SCH (21:09)
[2021-06-12] MEDS: Promethazine HCl 12.5 MG in Sodium Chloride 0.9% 50 ML IVPB PRN (21:09)
[2021-06-13] MEDS: Cefepime 2 GM in Sodium Chloride 0.9% 100 ML IVPB SCH ×3 (05:16→21:10)
[2021-06-13 06:36] LABS: Anion Gap 11 mmol/L (10-20); BUN (Urea Nitrogen) 31 mg/dL (8.9-20.6); Calc. Creatinine Clearance 108 mL/min (70-130); Calcium 9.7 mg/dL (7.8-10.44); Carbon Dioxide 29 mmol/L (22-29); Chloride 100 mmol/L (98-107); Glucose 108 mg/dL (70-105); Potassium 3.9 mmol/L (3.5-5.1); Sodium 136 mmol/L (136-145)
[2021-06-13] MEDS: Ondansetron PF 4 MG/2 ML Vial IVP PRN (06:47)
[2021-06-13] MEDS ORDERED: Magnesium 2 GM/50 ML 2 GM in Premix Bag 1 BAG IVPB SCH (07:00)
[2021-06-13] MEDS: Levalbuterol HCl 1.25 MG/0.5 ML NEB NEB SCH (07:22)
[2021-06-13] MEDS: Loratadine/Pseudoephedrine 10/240 mg Tablet PER TUBE SCH (09:01)
[2021-06-13] MEDS: Famotidine 40 MG/5 ML Oral Suspension PER TUBE SCH ×2 (09:01→21:09)
[2021-06-13] MEDS: Saccharomyces boulardii 250 MG CAP PER TUBE SCH (09:02)
[2021-06-13] MEDS: Metoclopramide HCl 10 MG/2 ML VIAL IVP SCH ×2 (09:03→21:07)
[2021-06-13] MEDS: Simethicone 40 MG/0.6 ML Drop 30 ML BOT PO SCH ×3 (09:03→21:09)
[2021-06-13 10:18] LABS: CSF, Glucose 50 mg/dl (40-70); CSF, Protein 173 mg/dL (15-40)
[2021-06-13 11:15] LABS: Fungus Stain Final report (.)
[2021-06-13 11:58] LABS: CSF Source CSF; Clarity Hazy (Clear); Tube # EDTA
[2021-06-13 11:59] LABS: CSF RBC Count - Manual 1 /cu.mm (None Seen); CSF WBC/NonHematics Count-Man 14 /cu.mm (0-5)
[2021-06-13 12:09] LABS: Cell Count Non Hematic 41 %; Lymphocytes 59 %
[2021-06-13] MEDS: WATER IVPB SCH (21:06)
[2021-06-13] MEDS: DEXTROSE 5% IVPB SCH (21:06)
[2021-06-13] MEDS: Admixture Fee 1 EACH in Dextrose 5% in Water 10 ML FS SCH ×2 (21:06→23:33)
[2021-06-13] MEDS: AMBISOME IVPB SCH (21:06)
[2021-06-13] MEDS: Montelukast Sodium 10 mg Tablet PER TUBE SCH (21:09)
[2021-06-13] MEDS: Polyethylene Glycol 3350 17 GM Packet PO SCH (21:09)
[2021-06-13] MEDS: Ketotifen Fumarate 0.025% Ophth Soln 5 ml Bottle EA EYE SCH (21:09)
[2021-06-13] MEDS: Promethazine HCl 12.5 MG in Sodium Chloride 0.9% 50 ML IVPB PRN (21:10)
[2021-06-13] MEDS: Ketorolac Tromethamine 30 MG/ML VIAL IVP PRN (21:32)
[2021-06-14] MEDS: Cefepime 2 GM in Sodium Chloride 0.9% 100 ML IVPB SCH ×3 (05:12→21:03)
[2021-06-14 06:58] LABS: #Basophils 0.1 thou/uL (0.0-0.2); #Eosinphils 0.6 thou/uL (0.0-0.7); #Lymphocytes 1.3 thou/uL (1.20-3.40); #Monocytes 0.7 thou/uL (0.11-0.59); #Neutrophils 3.1 thou/uL (1.40-6.50); %Eosinophils 10.9 % (0.0-10.0); %Lymphocytes 22.2 % (21.0-51.0); %Neutrophils 53.9 % (42.0-75.0); Hemoglobin 13.3 g/dL (14.0-18.0); Mean Corpuscular HGB CONC 33.5 g/dL (32.0-36.0); Mean Corpuscular Hemoglobin 31.1 pg (27.0-31.0); Mean Corpuscular Volume 92.7 fL (78.0-98.0); Mean Platelet Volume 7.1 fL (7.4-10.4); Platelet Count 210 thou/uL (130-400); RBC Distribution Width 14.8 % (11.5-14.5); Red Blood Cell (RBC) Count 4.27 mill/uL (4.70-6.10); White Blood Cell (WBC) Count 5.8 thou/uL (4.8-10.8)
[2021-06-14 07:19] LABS: Anion Gap 10 mmol/L (10-20); BUN (Urea Nitrogen) 28 mg/dL (8.9-20.6); Calc. Creatinine Clearance 112 mL/min (70-130); Calcium 9.8 mg/dL (7.8-10.44); Carbon Dioxide 30 mmol/L (22-29); Chloride 101 mmol/L (98-107); Glucose 105 mg/dL (70-105); Magnesium 2.1 mg/dL (1.6-2.6); Potassium 3.6 mmol/L (3.5-5.1); Sodium 137 mmol/L (136-145)
[2021-06-14] MEDS: Polyethylene Glycol 3350 17 GM Packet PER TUBE PRN (07:40)
[2021-06-14] MEDS: Levalbuterol HCl 1.25 MG/0.5 ML NEB NEB SCH (08:14)
[2021-06-14] MEDS: Loratadine/Pseudoephedrine 10/240 mg Tablet PER TUBE SCH (08:30)
[2021-06-14] MEDS: Simethicone 40 MG/0.6 ML Drop 30 ML BOT PO SCH ×3 (08:30→20:47)
[2021-06-14] MEDS: Metoclopramide HCl 10 MG/2 ML VIAL IVP SCH ×2 (08:30→20:47)
[2021-06-14] MEDS: Saccharomyces boulardii 250 MG CAP PER TUBE SCH (08:30)
[2021-06-14] MEDS: Famotidine 40 MG/5 ML Oral Suspension PER TUBE SCH ×2 (08:30→20:46)
[2021-06-14] MEDS: Bisacodyl 10 MG SUPP PR PRN (14:03)
[2021-06-14] MEDS: Montelukast Sodium 10 mg Tablet PER TUBE SCH (20:46)
[2021-06-14] MEDS: Ketotifen Fumarate 0.025% Ophth Soln 5 ml Bottle EA EYE SCH (20:47)
[2021-06-14] MEDS: Polyethylene Glycol 3350 17 GM Packet PO SCH ×2 (20:47→21:00)
[2021-06-14] MEDS: DEXTROSE 5% IVPB SCH (20:50)
[2021-06-14] MEDS: Admixture Fee 1 EACH in Dextrose 5% in Water 10 ML FS SCH ×2 (20:50→23:26)
[2021-06-14] MEDS: AMBISOME IVPB SCH (20:50)
[2021-06-14] MEDS: WATER IVPB SCH (20:50)
[2021-06-14] MEDS: Promethazine HCl 12.5 MG in Sodium Chloride 0.9% 50 ML IVPB PRN (20:51)
[2021-06-15] MEDS: Cefepime 2 GM in Sodium Chloride 0.9% 100 ML IVPB SCH ×3 (05:25→20:35)
[2021-06-15 06:27] LABS: #Basophils 0.1 thou/uL (0.0-0.2); #Eosinphils 0.6 thou/uL (0.0-0.7); #Lymphocytes 1.5 thou/uL (1.20-3.40); #Monocytes 0.9 thou/uL (0.11-0.59); %Basophils 1.1 % (0.0-1.0); %Eosinophils 9.8 % (0.0-10.0); %Lymphocytes 25.4 % (21.0-51.0); %Monocytes 14.6 % (0.0-10.0); %Neutrophils 49.2 % (42.0-75.0); Hemoglobin 13.2 g/dL (14.0-18.0); Mean Corpuscular HGB CONC 34.8 g/dL (32.0-36.0); Mean Corpuscular Hemoglobin 32.1 pg (27.0-31.0); Mean Corpuscular Volume 92.4 fL (78.0-98.0); Mean Platelet Volume 7.1 fL (7.4-10.4); Platelet Count 238 thou/uL (130-400); RBC Distribution Width 14.7 % (11.5-14.5); Red Blood Cell (RBC) Count 4.11 mill/uL (4.70-6.10)
[2021-06-15] MEDS ORDERED: Thrombin 5000 UNITS/5 ML VIAL ONE (06:29)
[2021-06-15] MEDS ORDERED: Bupivacaine 0.25% HCL 30 ML VIAL ONE (06:40)
[2021-06-15] MEDS ORDERED: Lidocaine 0.5%/Epinephrine 1:200,000 50 ml Vial ONE (06:40)
[2021-06-15] MEDS ORDERED: EPINEPHrine 1 MG/ML AMP ONE (06:40)
[2021-06-15 06:48] LABS: Anion Gap 11 mmol/L (10-20); BUN (Urea Nitrogen) 30 mg/dL (8.9-20.6); Calc. Creatinine Clearance 111 mL/min (70-130); Calcium 9.9 mg/dL (7.8-10.44); Carbon Dioxide 28 mmol/L (22-29); Chloride 102 mmol/L (98-107); Glucose 107 mg/dL (70-105); Magnesium 1.9 mg/dL (1.6-2.6); Potassium 3.6 mmol/L (3.5-5.1); Sodium 137 mmol/L (136-145)
[2021-06-15] MEDS ORDERED: Fentanyl 100 MCG/2 ML VIAL ONE (06:53)
[2021-06-15] MEDS ORDERED: Magnesium 2 GM/50 ML 2 GM in Premix Bag 1 BAG IVPB SCH (07:30)
[2021-06-15] MEDS ORDERED: Rocuronium Bromide 10 MG/ML (10ML VIAL) ONE (07:31)
[2021-06-15] MEDS ORDERED: Ondansetron PF 4 MG/2 ML Vial ONE (07:31)
[2021-06-15] MEDS ORDERED: PHENYLEPHRINE-NS 100 MCG/ML 10 ML SYRINGE ONE (07:31)
[2021-06-15] MEDS ORDERED: Lidocaine 1% PF 5 ML VIAL ONE (07:31)
[2021-06-15] MEDS ORDERED: PROPOFOL 200 MG/20 ML VIAL ONE (07:31)
[2021-06-15] MEDS ORDERED: Metoclopramide HCl 10 MG/2 ML VIAL ONE (07:31)
[2021-06-15] MEDS ORDERED: SUGAMMADEX SODIUM 200 MG/2 ML VIAL ONE (08:47)
[2021-06-15] MEDS ORDERED: Morphine 2 MG/ML VIAL SLOW IVP PRN (09:43)
[2021-06-15] MEDS: Famotidine 40 MG/5 ML Oral Suspension PER TUBE SCH ×2 (09:49→20:34)
[2021-06-15] MEDS: Simethicone 40 MG/0.6 ML Drop 30 ML BOT PO SCH ×3 (09:49→20:35)
[2021-06-15] MEDS: Metoclopramide HCl 10 MG/2 ML VIAL IVP SCH ×2 (09:49→20:36)
[2021-06-15] MEDS: Ketorolac Tromethamine 30 MG/ML VIAL IVP PRN ×2 (09:52→21:00)
[2021-06-15] MEDS: Loratadine/Pseudoephedrine 10/240 mg Tablet PER TUBE SCH (10:33)
[2021-06-15] MEDS: Saccharomyces boulardii 250 MG CAP PER TUBE SCH (10:33)
[2021-06-15] MEDS: Levalbuterol HCl 1.25 MG/0.5 ML NEB NEB SCH (10:44)
[2021-06-15] MEDS: Ketotifen Fumarate 0.025% Ophth Soln 5 ml Bottle EA EYE SCH (20:34)
[2021-06-15] MEDS: Montelukast Sodium 10 mg Tablet PER TUBE SCH (20:36)
[2021-06-15] MEDS: Polyethylene Glycol 3350 17 GM Packet PO SCH (20:36)
[2021-06-15] MEDS: Promethazine HCl 12.5 MG in Sodium Chloride 0.9% 50 ML IVPB PRN (21:00)
[2021-06-15] MEDS: DEXTROSE 5% IVPB SCH (21:01)
[2021-06-15] MEDS: AMBISOME IVPB SCH (21:01)
[2021-06-15] MEDS: Admixture Fee 1 EACH in Dextrose 5% in Water 10 ML FS SCH ×2 (21:01→23:00)
[2021-06-15] MEDS: WATER IVPB SCH (21:01)
[2021-06-16 03:58] LABS: #Eosinphils 0.6 thou/uL (0.0-0.7); #Lymphocytes 1.5 thou/uL (1.20-3.40); #Neutrophils 4.3 thou/uL (1.40-6.50); %Basophils 0.4 % (0.0-1.0); %Lymphocytes 19.7 % (21.0-51.0); %Monocytes 13.6 % (0.0-10.0); %Neutrophils 58.3 % (42.0-75.0); Hemoglobin 12.2 g/dL (14.0-18.0); Mean Corpuscular HGB CONC 34.7 g/dL (32.0-36.0); Mean Corpuscular Hemoglobin 32.3 pg (27.0-31.0); Mean Corpuscular Volume 92.9 fL (78.0-98.0); Mean Platelet Volume 7.3 fL (7.4-10.4); Platelet Count 215 thou/uL (130-400); RBC Distribution Width 14.7 % (11.5-14.5); Red Blood Cell (RBC) Count 3.79 mill/uL (4.70-6.10); White Blood Cell (WBC) Count 7.4 thou/uL (4.8-10.8)
[2021-06-16] MEDS: Cefepime 2 GM in Sodium Chloride 0.9% 100 ML IVPB SCH ×2 (05:19→13:35)
[2021-06-16] MEDS: Saccharomyces boulardii 250 MG CAP PER TUBE SCH (08:07)
[2021-06-16] MEDS: Simethicone 40 MG/0.6 ML Drop 30 ML BOT PO SCH ×3 (08:08→20:01)
[2021-06-16] MEDS: Famotidine 40 MG/5 ML Oral Suspension PER TUBE SCH ×2 (08:08→20:00)
[2021-06-16] MEDS: Loratadine/Pseudoephedrine 10/240 mg Tablet PER TUBE SCH (08:11)
[2021-06-16] MEDS: Metoclopramide HCl 10 MG/2 ML VIAL IVP SCH ×2 (08:38→19:50)
[2021-06-16] MEDS: Levalbuterol HCl 1.25 MG/0.5 ML NEB NEB SCH (08:45)
[2021-06-16] MEDS: Ketorolac Tromethamine 30 MG/ML VIAL IVP PRN (19:50)
[2021-06-16] MEDS: Ketotifen Fumarate 0.025% Ophth Soln 5 ml Bottle EA EYE SCH (19:52)
[2021-06-16] MEDS: Montelukast Sodium 10 mg Tablet PER TUBE SCH (20:00)
[2021-06-16] MEDS: Polyethylene Glycol 3350 17 GM Packet PO SCH (20:00)
[2021-06-16] MEDS: Promethazine HCl 12.5 MG in Sodium Chloride 0.9% 50 ML IVPB PRN (21:32)
[2021-06-16] MEDS: DEXTROSE 5% IVPB SCH (21:59)
[2021-06-16] MEDS: WATER IVPB SCH (21:59)
[2021-06-16] MEDS: AMBISOME IVPB SCH (21:59)
[2021-06-16] MEDS: Admixture Fee 1 EACH in Dextrose 5% in Water 10 ML FS SCH (22:00)
[2021-06-17] MEDS: Admixture Fee 1 EACH in Dextrose 5% in Water 10 ML FS SCH ×2 (00:09→22:01)
[2021-06-17] MEDS: Cefepime 2 GM in Sodium Chloride 0.9% 100 ML IVPB SCH ×3 (00:09→22:22)
[2021-06-17 04:51] LABS: Anion Gap 13 mmol/L (10-20); BUN (Urea Nitrogen) 32 mg/dL (8.9-20.6); Calc. Creatinine Clearance 114 mL/min (70-130); Calcium 9.8 mg/dL (7.8-10.44); Carbon Dioxide 24 mmol/L (22-29); Chloride 103 mmol/L (98-107); Glucose 116 mg/dL (70-105); Potassium 3.1 mmol/L (3.5-5.1); Sodium 137 mmol/L (136-145)
[2021-06-17] MEDS ORDERED: Potassium Bicarbonate/Cit Ac 20 MEQ TAB PER TUBE SCH (07:00)
[2021-06-17] MEDS: Ondansetron PF 4 MG/2 ML Vial IVP PRN (09:46)
[2021-06-17] MEDS: Saccharomyces boulardii 250 MG CAP PER TUBE SCH (09:49)
[2021-06-17] MEDS: Loratadine/Pseudoephedrine 10/240 mg Tablet PER TUBE SCH (09:49)
[2021-06-17] MEDS: Metoclopramide HCl 10 MG/2 ML VIAL IVP SCH ×2 (09:50→20:37)
[2021-06-17] MEDS: Simethicone 40 MG/0.6 ML Drop 30 ML BOT PO SCH ×3 (09:50→20:36)
[2021-06-17] MEDS: Famotidine 40 MG/5 ML Oral Suspension PER TUBE SCH ×2 (09:50→21:58)
[2021-06-17] MEDS: Polyethylene Glycol 3350 17 GM Packet PER TUBE PRN (09:59)
[2021-06-17] MEDS: Levalbuterol HCl 1.25 MG/0.5 ML NEB NEB SCH (11:06)
[2021-06-17] MEDS: Ketorolac Tromethamine 30 MG/ML VIAL IVP PRN (17:33)
[2021-06-17] MEDS: Polyethylene Glycol 3350 17 GM Packet PO SCH (20:36)
[2021-06-17] MEDS: Montelukast Sodium 10 mg Tablet PER TUBE SCH (20:36)
[2021-06-17] MEDS: Ketotifen Fumarate 0.025% Ophth Soln 5 ml Bottle EA EYE SCH (20:36)
[2021-06-17 21:13] LABS: Potassium 3.1 mmol/L (3.5-5.1)
[2021-06-17] MEDS: WATER IVPB SCH (22:01)
[2021-06-17] MEDS: AMBISOME IVPB SCH (22:01)
[2021-06-17] MEDS: Promethazine HCl 12.5 MG in Sodium Chloride 0.9% 50 ML IVPB PRN (22:01)
[2021-06-17] MEDS: DEXTROSE 5% IVPB SCH (22:01)
[2021-06-18] MEDS: Admixture Fee 1 EACH in Dextrose 5% in Water 10 ML FS SCH ×3 (00:30→23:37)
[2021-06-18] MEDS: Cefepime 2 GM in Sodium Chloride 0.9% 100 ML IVPB SCH ×3 (00:43→16:39)
[2021-06-18] MEDS ORDERED: Potassium Bicarbonate/Cit Ac 20 MEQ TAB PER TUBE SCH ×2 (05:15→09:00)
[2021-06-18 05:23] LABS: Mean Corpuscular HGB CONC 33.9 g/dL (32.0-36.0); Mean Corpuscular Hemoglobin 31.2 pg (27.0-31.0); Mean Platelet Volume 7.5 fL (7.4-10.4); Platelet Count 202 thou/uL (130-400); RBC Distribution Width 14.7 % (11.5-14.5); Red Blood Cell (RBC) Count 3.86 mill/uL (4.70-6.10); White Blood Cell (WBC) Count 5.8 thou/uL (4.8-10.8)
[2021-06-18 05:36] LABS: Anion Gap 12 mmol/L (10-20); BUN (Urea Nitrogen) 29 mg/dL (8.9-20.6); Calc. Creatinine Clearance 114 mL/min (70-130); Calcium 9.8 mg/dL (7.8-10.44); Carbon Dioxide 28 mmol/L (22-29); Chloride 102 mmol/L (98-107); Glucose 121 mg/dL (70-105); Sodium 139 mmol/L (136-145)
[2021-06-18] MEDS: Ondansetron PF 4 MG/2 ML Vial IVP PRN (05:39)
[2021-06-18 05:40] LABS: Potassium 2.8 mmol/L (3.5-5.1)
[2021-06-18 06:19] LABS: Magnesium 1.9 mg/dL (1.6-2.6)
[2021-06-18] MEDS: Levalbuterol HCl 1.25 MG/0.5 ML NEB NEB SCH (06:43)
[2021-06-18] MEDS ORDERED: Magnesium 2 GM/50 ML 2 GM in Premix Bag 1 BAG IVPB SCH (06:45)
[2021-06-18 06:52] LABS: Band 18 % (5-11); Eosinophils 14 % (0-10); Lymphocytes 19 % (21-51); MDiff Complete? YES; Monocytes 8 % (0-10); Neutrophil 40 % (42-75)
[2021-06-18] MEDS: Loratadine 10 MG TAB PER TUBE SCH (08:49)
[2021-06-18] MEDS: Saccharomyces boulardii 250 MG CAP PER TUBE SCH (08:49)
[2021-06-18] MEDS: Famotidine 40 MG/5 ML Oral Suspension PER TUBE SCH ×2 (08:49→20:56)
[2021-06-18] MEDS: Metoclopramide HCl 10 MG/2 ML VIAL IVP SCH ×2 (08:51→20:56)
[2021-06-18] MEDS: Simethicone 40 MG/0.6 ML Drop 30 ML BOT PO SCH ×3 (08:51→20:54)
[2021-06-18 15:24] VITALS: BMI 19.8
[2021-06-18] MEDS: Montelukast Sodium 10 mg Tablet PER TUBE SCH (20:55)
[2021-06-18] MEDS: Ketotifen Fumarate 0.025% Ophth Soln 5 ml Bottle EA EYE SCH (20:55)
[2021-06-18] MEDS: Potassium Bicarbonate/Cit Ac 20 MEQ TAB PER TUBE SCH (20:55)
[2021-06-18] MEDS: Promethazine HCl 12.5 MG in Sodium Chloride 0.9% 50 ML IVPB PRN (20:58)
[2021-06-18] MEDS: Polyethylene Glycol 3350 17 GM Packet PO SCH (21:18)
[2021-06-18] MEDS: WATER IVPB SCH (21:27)
[2021-06-18] MEDS: AMBISOME IVPB SCH (21:27)
[2021-06-18] MEDS: DEXTROSE 5% IVPB SCH (21:27)
[2021-06-19] MEDS: Cefepime 2 GM in Sodium Chloride 0.9% 100 ML IVPB SCH ×3 (00:32→17:27)
[2021-06-19 04:40] LABS: Anion Gap 12 mmol/L (10-20); BUN (Urea Nitrogen) 24 mg/dL (8.9-20.6); Calc. Creatinine Clearance 121 mL/min (70-130); Calcium 9.5 mg/dL (7.8-10.44); Carbon Dioxide 29 mmol/L (22-29); Chloride 101 mmol/L (98-107); Glucose 118 mg/dL (70-105); Potassium 3.3 mmol/L (3.5-5.1); Sodium 139 mmol/L (136-145)
[2021-06-19] MEDS ORDERED: Potassium Bicarbonate/Cit Ac 20 MEQ TAB PER TUBE SCH (07:00)
[2021-06-19] MEDS: Levalbuterol HCl 1.25 MG/0.5 ML NEB NEB SCH (07:29)
[2021-06-19] MEDS: Loratadine 10 MG TAB PER TUBE SCH (08:28)
[2021-06-19] MEDS: Potassium Bicarbonate/Cit Ac 20 MEQ TAB PER TUBE SCH ×2 (08:28→21:12)
[2021-06-19] MEDS: Famotidine 40 MG/5 ML Oral Suspension PER TUBE SCH ×2 (08:28→21:12)
[2021-06-19] MEDS: Saccharomyces boulardii 250 MG CAP PER TUBE SCH (08:28)
[2021-06-19] MEDS: Simethicone 40 MG/0.6 ML Drop 30 ML BOT PO SCH ×3 (08:29→20:26)
[2021-06-19] MEDS: Metoclopramide HCl 10 MG/2 ML VIAL IVP SCH ×2 (08:47→21:13)
[2021-06-19] MEDS: Acetaminophen 500 MG TAB PER TUBE PRN ×2 (08:50→21:14)
[2021-06-19] MEDS: Promethazine HCl 12.5 MG in Sodium Chloride 0.9% 50 ML IVPB PRN (20:24)
[2021-06-19] MEDS: Ketotifen Fumarate 0.025% Ophth Soln 5 ml Bottle EA EYE SCH (20:26)
[2021-06-19] MEDS: Polyethylene Glycol 3350 17 GM Packet PO SCH (21:13)
[2021-06-19] MEDS: Admixture Fee 1 EACH in Dextrose 5% in Water 10 ML FS SCH ×2 (21:15→23:18)
[2021-06-19] MEDS: DEXTROSE 5% IVPB SCH (21:16)
[2021-06-19] MEDS: WATER IVPB SCH (21:16)
[2021-06-19] MEDS: AMBISOME IVPB SCH (21:16)
[2021-06-19] MEDS: Montelukast Sodium 10 mg Tablet PER TUBE SCH (21:21)
[2021-06-20] MEDS: Cefepime 2 GM in Sodium Chloride 0.9% 100 ML IVPB SCH ×3 (01:22→16:48)
[2021-06-20] MEDS: Ondansetron PF 4 MG/2 ML Vial IVP PRN (07:52)
[2021-06-20] MEDS: Acetaminophen 500 MG TAB PER TUBE PRN ×2 (08:30→19:04)
[2021-06-20] MEDS: Saccharomyces boulardii 250 MG CAP PER TUBE SCH (08:35)
[2021-06-20] MEDS: Famotidine 40 MG/5 ML Oral Suspension PER TUBE SCH ×2 (08:35→20:28)
[2021-06-20] MEDS: Loratadine 10 MG TAB PER TUBE SCH (08:35)
[2021-06-20] MEDS: Potassium Bicarbonate/Cit Ac 20 MEQ TAB PER TUBE SCH ×2 (08:35→20:32)
[2021-06-20] MEDS: Simethicone 40 MG/0.6 ML Drop 30 ML BOT PO SCH ×3 (08:36→20:29)
[2021-06-20] MEDS: Levalbuterol HCl 1.25 MG/0.5 ML NEB NEB SCH (08:36)
[2021-06-20] MEDS ORDERED: Metoclopramide HCl 10 MG/2 ML VIAL IVP SCH (11:00)
[2021-06-20] MEDS: Metoclopramide HCl 10 MG/2 ML VIAL IVP SCH ×2 (11:33→20:30)
[2021-06-20] MEDS: Polyethylene Glycol 3350 17 GM Packet PO SCH (20:29)
[2021-06-20] MEDS: Ketotifen Fumarate 0.025% Ophth Soln 5 ml Bottle EA EYE SCH (20:29)
[2021-06-20] MEDS: Montelukast Sodium 10 mg Tablet PER TUBE SCH (20:31)
[2021-06-20] MEDS: Promethazine HCl 12.5 MG in Sodium Chloride 0.9% 50 ML IVPB PRN (21:00)
[2021-06-20] MEDS: Admixture Fee 1 EACH in Dextrose 5% in Water 10 ML FS SCH ×2 (21:24→23:29)
[2021-06-20] MEDS: AMBISOME IVPB SCH (21:26)
[2021-06-20] MEDS: DEXTROSE 5% IVPB SCH (21:26)
[2021-06-20] MEDS: WATER IVPB SCH (21:26)
[2021-06-21] MEDS: Cefepime 2 GM in Sodium Chloride 0.9% 100 ML IVPB SCH ×3 (01:07→17:28)
[2021-06-21 04:20] LABS: Anion Gap 12 mmol/L (10-20); BUN (Urea Nitrogen) 18 mg/dL (8.9-20.6); Calc. Creatinine Clearance 114 mL/min (70-130); Calcium 10.1 mg/dL (7.8-10.44); Carbon Dioxide 32 mmol/L (22-29); Chloride 97 mmol/L (98-107); Glucose 115 mg/dL (70-105); Potassium 3.6 mmol/L (3.5-5.1); Sodium 137 mmol/L (136-145)
[2021-06-21] MEDS: Simethicone 40 MG/0.6 ML Drop 30 ML BOT PO SCH ×3 (09:17→19:52)
[2021-06-21] MEDS: Saccharomyces boulardii 250 MG CAP PER TUBE SCH (09:18)
[2021-06-21] MEDS: Potassium Bicarbonate/Cit Ac 20 MEQ TAB PER TUBE SCH ×2 (09:18→19:52)
[2021-06-21] MEDS: Metoclopramide HCl 10 MG/2 ML VIAL IVP SCH ×2 (09:18→19:53)
[2021-06-21] MEDS: Loratadine 10 MG TAB PER TUBE SCH (09:18)
[2021-06-21] MEDS: Famotidine 40 MG/5 ML Oral Suspension PER TUBE SCH ×2 (09:18→19:53)
[2021-06-21] MEDS: Levalbuterol HCl 1.25 MG/0.5 ML NEB NEB SCH (10:07)
[2021-06-21] MEDS: Montelukast Sodium 10 mg Tablet PER TUBE SCH (19:52)
[2021-06-21] MEDS: Ketotifen Fumarate 0.025% Ophth Soln 5 ml Bottle EA EYE SCH (19:52)
[2021-06-21] MEDS: Polyethylene Glycol 3350 17 GM Packet PO SCH (19:53)
[2021-06-21] MEDS: Promethazine HCl 12.5 MG in Sodium Chloride 0.9% 50 ML IVPB PRN (20:47)
[2021-06-21] MEDS: DEXTROSE 5% IVPB SCH (20:48)
[2021-06-21] MEDS: WATER IVPB SCH (20:48)
[2021-06-21] MEDS: Admixture Fee 1 EACH in Dextrose 5% in Water 10 ML FS SCH ×2 (20:48→23:28)
[2021-06-21] MEDS: AMBISOME IVPB SCH (20:48)
[2021-06-22] MEDS: Cefepime 2 GM in Sodium Chloride 0.9% 100 ML IVPB SCH ×3 (00:06→16:39)
[2021-06-22] MEDS: Levalbuterol HCl 1.25 MG/0.5 ML NEB NEB SCH (07:02)
[2021-06-22 09:07] VITALS: BP 117/76; TEMP 98.7
[2021-06-22] MEDS: Potassium Bicarbonate/Cit Ac 20 MEQ TAB PER TUBE SCH (10:07)
[2021-06-22] MEDS: Loratadine 10 MG TAB PER TUBE SCH (10:08)
[2021-06-22] MEDS: Metoclopramide HCl 10 MG/2 ML VIAL IVP SCH (10:08)
[2021-06-22] MEDS: Simethicone 40 MG/0.6 ML Drop 30 ML BOT PO SCH ×2 (10:08→14:23)
[2021-06-22] MEDS: Saccharomyces boulardii 250 MG CAP PER TUBE SCH (10:08)
[2021-06-22] MEDS: Famotidine 40 MG/5 ML Oral Suspension PER TUBE SCH (10:08)
[2021-06-22] MEDS: Admixture Fee 1 EACH in Dextrose 5% in Water 10 ML FS SCH ×2 (14:14→16:37)
[2021-06-22] MEDS: WATER IVPB SCH (14:15)
[2021-06-22] MEDS: AMBISOME IVPB SCH (14:15)
[2021-06-22] MEDS: DEXTROSE 5% IVPB SCH (14:15)
[2021-06-22] MEDS: Ondansetron PF 4 MG/2 ML Vial IVP PRN (14:34)
== END 2021-06-22 19:00 | disposition home health service (06) | DRG 25 ==
LOC: ERS 15:11 → OBSVTOIN 18:05 → T4-A 18:05 → CCU 05-08 19:29 → ONC 06-16 13:43
PROVIDERS: ADMIT Family Medicine; ATTEND Internal Medicine
PROC: 3E033XZ Introduction of Vasopressor into Peripheral Vein, Percutaneous Approach (ICD-10-PCS; 2021-05-08)
PROC: 009600Z Drainage of Cerebral Ventricle with Drainage Device, Open Approach (ICD-10-PCS; 2021-05-09)
PROC: 00P60JZ Removal of Synthetic Substitute from Cerebral Ventricle, Open Approach (ICD-10-PCS; 2021-05-09)
PROC: 0DH67UZ Insertion of Feeding Device into Stomach, Via Natural or Artificial Opening (ICD-10-PCS; 2021-05-10)
PROC: 02HV33Z Insertion of Infusion Device into Superior Vena Cava, Percutaneous Approach (ICD-10-PCS; principal; 2021-05-14)
PROC: B548ZZA Ultrasonography of Superior Vena Cava, Guidance (ICD-10-PCS; 2021-05-14)
PROC: 009600Z Drainage of Cerebral Ventricle with Drainage Device, Open Approach (ICD-10-PCS; 2021-06-08)
PROC: 00P60JZ Removal of Synthetic Substitute from Cerebral Ventricle, Open Approach (ICD-10-PCS; 2021-06-08)
PROC: 00160J6 Bypass Cerebral Ventricle to Peritoneal Cavity with Synthetic Substitute, Open Approach (ICD-10-PCS; 2021-06-15)
PROC: 00P60JZ Removal of Synthetic Substitute from Cerebral Ventricle, Open Approach (ICD-10-PCS; 2021-06-15)
PROC: 0WJG4ZZ Inspection of Peritoneal Cavity, Percutaneous Endoscopic Approach (ICD-10-PCS; 2021-06-15)
DX: T85.730A Infection and inflammatory reaction due to ventricular intracranial (communicating) shunt, initial encounter (principal); A41.59 Other Gram-negative sepsis; R53.2 Functional quadriplegia; R65.20 Severe sepsis without septic shock; G00.9 Bacterial meningitis, unspecified; G04.81 Other encephalitis and encephalomyelitis; E43 Unspecified severe protein-calorie malnutrition; K56.7 Ileus, unspecified; E87.1 Hypo-osmolality and hyponatremia; A04.72 Enterocolitis due to Clostridium difficile, not specified as recurrent; B37.89 Other sites of candidiasis; T81.49XA Infection following a procedure, other surgical site, initial encounter; G93.49 Other encephalopathy; E86.0 Dehydration; G80.9 Cerebral palsy, unspecified; Y84.9 Medical procedure, unspecified as the cause of abnormal reaction of the patient, or of later complication, without mention of misadventure at the time of the procedure; Z20.822 Contact with and (suspected) exposure to COVID-19; R13.12 Dysphagia, oropharyngeal phase; L98.419 Non-pressure chronic ulcer of buttock with unspecified severity; K94.29 Other complications of gastrostomy; Y84.8 Other medical procedures as the cause of abnormal reaction of the patient, or of later complication, without mention of misadventure at the time of the procedure; R00.0 Tachycardia, unspecified; I49.1 Atrial premature depolarization; E87.6 Hypokalemia; Z78.1 Physical restraint status; G96.198 Other disorders of meninges, not elsewhere classified; Z68.1 Body mass index [BMI] 19.9 or less, adult; Q03.1 Atresia of foramina of Magendie and Luschka; Z88.8 Allergy status to other drugs, medicaments and biological substances; Z88.1 Allergy status to other antibiotic agents; Z91.040 Latex allergy status; Z79.51 Long term (current) use of inhaled steroids; Z79.899 Other long term (current) drug therapy; Z98.2 Presence of cerebrospinal fluid drainage device; Q03.9 Congenital hydrocephalus, unspecified
CPT/HCPCS: 36415; 36416; 36569; 70450; 70553; 71045; 74018; 74177; 75809; 80048; 80053; 80076; 81001; 82945; 83540; 83605; 83735; 84100; 84132; 84157; 85025; 85060; 86612; 86635; 86698; 87040; 87070; 87077; 87086; 87102; 87186; 87205; 87206; 87324; 87449; 89051; 93005; 93306; 93970; 94640; 96365; 96367; 96375; A9579; C1751; C9113; J0171; J0289; J0692; J1100; J1450; J1580; J1644; J1885; J2001; J2020; J2060; J2185; J2270; J2405; J2543; J2550; J2704; J2765; J2997; J3010; J3370; J3475; J3480; J3490; J7050; J7070; J7612; Q9967; S0020; U0002; U0003; U0005